=== PATIENT | female | born 1930 | race Caucasian/White ===

== ENCOUNTER 2016-12-07 10:09 | Inpatient (IN) | payer OTHER ==
[~2016-12-07] VITALS: Ht 175.3 cm; Wt 47.0 kg
[~2016-12-07 10:09] MED LIST: ALL300 PO; ASPI81TA21 PO; CHOL100027 PO; CRDCD120 PO; DIGO0.122 PO; DOCU-94 PO; FRS/40 PO; GLIP-197 PO; LSN25 PO; LVQ750 PO
[2016-12-07] MEDS ORDERED: DILT120C68 PO (10:18)
[2016-12-07] MEDS ORDERED: DIGO0.1219 PO (10:20)
[2016-12-07] MEDS ORDERED: ALLO300T2 PO (10:21)
[2016-12-07] MEDS ORDERED: POTA10CA28 PO (10:22)
--- NOTE | 2016-12-07 11:02 | EMERGENCY ROOM VISIT NOTE ---
History Report prepared by Nadiya: Sbe Ventura Under the Supervision of: Dr. Sarah Fonseca M.D. First contact with patient: 10:36 Chief Complaint: WEAKNESS Stated Complaint: GENERALIZED WEAKNESS Nursing Triage Summary: pt. was brought by bls, family reports weakness this am, pt. reports, " I didn' t fall", was caught by family member Pt. has reported right facial droop since she had face surgery, family reports it is her normal History of Present Illness The patient is an 86 year old female who presents to the Emergency Room with complaints of an acute fall that occurred earlier this morning. The patient normally uses a walker. She was standing up without her walker this morning when he legs gave out secondary to generalized weakness. The patient was caught by her nephew, who she lives with. The patient did not hit the ground or sustain any injuries. The patient notes increased generalized weakness lately, especially in the legs. She denies any pain. She denies vomiting, abdominal pain , or urinary symptoms. The patient has a history of broken left hip and shoulder secondary to falls. The patient has a history of skin cancer. She has a chronic right facial droop from surgery to remove the cancer, as per nursing staff. The patient has a wound care nurse visit her at home to treat her legs, which retain a lot of fluid. Source of History: patient Onset: earlier this morning Position: other (global) Quality: other (fall) Timing: other (acute) Associated Symptoms: + weakness, No abdominal pain, No urinary symptoms, No vomiting Review of Systems See HPI for pertinent positives & negatives. A total of 10 systems reviewed and were otherwise negative. Past Medical & Surgical Medical Problems: (1) Afib (2) CHF (congestive heart failure) (3) Diabetes mellitus, type 2 (4) History of CVA (cerebrovascular accident) (5) HTN (hypertension) (6) Sacral decubitus ulcer, stage IV (7) Sepsis secondary to UTI (8) Squamous cell skin cancer Family History Cancer Diabetes mellitus FHx: heart disease Gallbladder disease Hypertension Kidney disease Social History Smoking Status: Never Smoker Drug Use: none Marital Status: single Housing Status: lives with family Occupation Status: retired Current/Historical Medications Scheduled Allopurinol (Zyloprim), 300 MG PO DAILY Aspirin Enteric Coated (Ecotrin Or Generic), 81 MG PO DAILY Cholecalciferol (Vitamin D 1000 Unit), 2,000 INTER.UNIT PO DAILY Digoxin (Digox), 125 MCG PO DAILY Diltiazem Hcl Ext Rel (Tiazac), 120 MG PO DAILY Furosemide (Lasix), 40 MG PO DAILY Glipizide (Glipizide Er), 1 TAB PO DAILY Lisinopril (Lisinopril), 2.5 MG PO DAILY Potassium Chloride (Micro-K Ext Rel), 10 MEQ PO DAILY Allergies Coded Allergies: Codeine (Verified Adverse Reaction, Mild, VOMITING, 12/07/16) Physical Exam Vital Signs Date Time Temp Pulse Resp B/P Pulse Ox O2 Delivery O2 Flow Rate FiO2 12/07/16 13:20 56 16 122/84 97 Room Air 12/07/16 12:32 54 20 116/83 12/07/16 11:40 35.3 12/07/16 10:24 72 12/07/16 10:18 99 Room Air 12/07/16 10:18 36.9 64 21 132/67 98 Room Air Physical Exam Vital signs reviewed. General: Chronically ill-appearing, cachectic and frail. HEENT: No scleral icterus, PERRLA, neck supple. Atraumatic. Cardiovascular: Regular rate and rhythm, no extra sounds. Pulmonary: Clear to auscultation bilaterally, normal work of breathing. Abdomen: Soft, nontender, nondistended, positive bowel sounds. Musculoskeletal: Atraumatic. Chronic edema to the bilateral lower extremities from the knees down with weeping open wounds, no evidence of acute cellulitis. Neurologic: Patient awake alert and oriented x 3, full strength in all 4 extremities. Right-sided facial droop which is baseline. Skin: Warm, dry, no rash Open wounds to the sacral area, erythema across the buttocks. Chronic scaling of the skin to the face and extremities. Medical Decision & Procedures ER Provider Diagnostic Interpretation: X-ray results as stated below per my interpretation and radiologist interpretation. Other radiology results as stated below per my review and radiologist interpretation: CHEST ONE VIEW PORTABLE CLINICAL HISTORY: weakness dyspnea COMPARISON STUDY: 11/26/2015 FINDINGS: Mild pulmonary vascular congestion. Stable tortuosity thoracic aorta. Diaphragms smooth. Costophrenic angles are sharp. IMPRESSION: Mild pulmonary vascular congestion. No well-defined focal infiltrate. Electronically signed by: Jordan Grey M.D. 12/07/2016 12:23 PM Dictated Date/Time: 12/07/2016 12:[address] SCAN OF THE BRAIN WITHOUT IV CONTRAST CLINICAL HISTORY: Generalized weakness. COMPARISON STUDY: CT of the brain dated 02/26/2015. TECHNIQUE: Unenhanced axial CT scan of the brain is performed from the vertex to the skull base. CT DOSE: 614.27 mGy.cm FINDINGS: Brain parenchyma: There are age-related involutional changes noting moderate subcortical and periventricular microangiopathic change. Small chronic lacunar infarcts are present in the caudate heads. There is no hemorrhage, mass effect, or evidence of acute territorial ischemia by CT criteria. Hough-white matter is preserved. No extra-axial fluid collection is seen. Ventricles, sulci, cisterns: Prominent secondary to involutional change. Intracranial vasculature: There is atherosclerotic calcification of the cavernous carotid and vertebral arteries. Calvarium: Unremarkable. Sinuses and mastoids: The visualized paranasal sinuses are clear. The mastoid air cells are well pneumatized. Orbits: The bony orbits are grossly intact. There are bilateral ocular lens implants. IMPRESSION: Senescent changes as above with no hemorrhage, mass effect, or evidence of acute territorial ischemia by CT criteria. Electronically signed by: Bennett Cobb M.D. 12/07/2016 12:29 PM Dictated Date/Time: 12/07/2016 12:26 PM Laboratory Results Test 12/07/16 11:30 12/07/16 11:51 12/07/16 11:57 12/07/16 11:59 Urine Color YELLOW Urine Appearance CLOUDY (CLEAR) Urine pH 5.5 (4.5-7.5) Urine Specific [place] 1.015 (1.000-1.030) Urine Protein NEG (NEG) Urine Glucose (UA) NEG (NEG) Urine Ketones NEG (NEG) Urine Occult Blood NEG (NEG) Urine Nitrite POS (NEG) Urine Bilirubin NEG (NEG) Urine Urobilinogen NEG (NEG) Urine Leukocyte Esterase NEG (NEG) Urine WBC (Auto) 1-5 /hpf (0-5) Urine RBC (Auto) 0-4 /hpf (0-4) Urine Hyaline Casts (Auto) 1-5 /lpf (0-5) Urine Epithelial Cells (Auto) 5-10 /lpf (0-5) Urine Bacteria (Auto) 4+ (NEG) Total Bilirubin 0.7 mg/dl (0.2-1) Direct Bilirubin 0.3 mg/dl (0-0.2) Aspartate Amino Transf (AST/SGOT) 15 U/L (15-37) Alanine Aminotransferase (ALT/SGPT) 16 U/L (12-78) Alkaline Phosphatase 64 U/L (45-117) Total Creatine Kinase 38 U/L (26-192) Creatine Kinase MB 1.4 ng/ml (0.5-3.6) Creatine Kinase MB Ratio 3.7 (0-3.0) Total Protein 6.2 gm/dl (6.4-8.2) Albumin 2.6 gm/dl (3.4-5.0) Bedside Lactic Acid Venous 1.04 mmol/L (0.90-1.70) Bedside Troponin I 0.020 ng/ml (0-0.045) Date/Time Source Procedure Growth Status 12/07/16 11:30 Urine,Catheterized Urine Culture - Final GREATER THAN THREE TYPES OF ORGANISMS... Complete Laboratory results per my review. Medications Administered Medications (Trade) Dose Ordered Sig/Kaylee Route Start Time Stop Time Status Last Admin Dose Admin Sodium Chloride (Nss 1000ml) 1,000 ml @ 125 mls/hr Q8H STAT IV 12/07/16 11:06 12/07/16 15:16 DC 12/07/16 12:13 125 MLS/HR Potassium Chloride (Kcl 10 Meq / Wtr) 20 meq NOW STAT IV 12/07/16 13:07 12/07/16 15:16 DC 12/07/16 13:22 20 MEQ ECG Indication: weakness Rate (beats per minute): 69 Rhythm: other (likely junctional rhythm) Findings: nonspecific-ST abn, PVC, other (low voltage) ED Course 1050: Past medical records reviewed. The patient was evaluated in room A11b. A complete history and physical examination was performed. 1106: NSS 1000 ml @ 125 mls/hr. 1307: Potassium Chloride 20 meq IV. 1308: Updated the patient. 1323: Magnesium Sulfate 1 gm IV. 1345: Discussed the case with Dr. López, [facility]. The patient will be evaluated. Medical Decision Differential diagnosis: Etiologies such as metabolic, infection, hypo/hyperglycemia, electrolyte abnormalities, cardiac sources, intracerebral event, toxicologic, neurologic, as well as others were entertained. This patient was evaluated and appeared to be in no significant distress. IV access was obtained and laboratory work was drawn. Patient was placed on the quality assurance monitor final. She was hydrated with normal saline solution. Patient's laboratory work reveals anemia, hyponatremia and hypokalemia. EKG reveals a bradycardic rhythm with ectopy. Patient was given IV potassium. Urinalysis is negative. The evaluation of the sacral wounds reveals a foul odor and likely secondary infection. She may have an underlying osteomyelitis. The patient was discussed with the hospitalist service and she will be evaluated for further management. Consults Time Called: 1340 Consulting Physician: Dr. López, [facility]. Returned Call: [phone]: Discussed the case with Dr. López, [facility]. The patient will be evaluated. Impression Primary Impression: Hypokalemia Additional Impressions: Hypomagnesemia Dehydration Scribe Attestation The scribe's documentation has been prepared under my direction and personally reviewed by me in its entirety. I confirm that the note above accurately reflects all work, treatment, procedures, and medical decision making performed by me. Departure Information Dispostion Being Evaluated By Hospitalist Referrals Gene Guidry M.D. (PCP) Patient Instructions My [facility] Problem Qualifiers
[2016-12-07] MEDS ORDERED: SODIUM CHLORIDE 0.9% 1000ML 1,000 ML IV STA (11:06)
[2016-12-07 12:11] LABS: BASO % 0.4 %; BASO ABS # 0.03 K/uL (0-0.2); COMPLETE YES; EOS % 0.3 %; IG% 0.1 %; LYMPH % 22.9 %; LYMPH ABS # 1.57 K/uL (1.2-3.4); MEAN CELL VOLUME 96.3 fL (80-100); MEAN CORPUSCULAR HEMOGLOBIN 32.3 pg (25-34); MEAN CORPUSCULAR HGB CONC 33.5 g/dl (32-36); MEAN PLATELET VOLUME 11.6 fL (7.4-10.4); MONO % 8.5 %; NEUT % 67.8 %; PLATELET COUNT 189 K/uL (130-400); RED BLOOD COUNT 3.22 M/uL (4.2-5.4); WHITE BLOOD COUNT 6.86 K/uL (4.8-10.8)
--- NOTE | 2016-12-07 12:24 | DIAGNOSTIC IMAGING REPORT ---
CHEST ONE VIEW PORTABLE CLINICAL HISTORY: weakness dyspnea COMPARISON STUDY: 11/26/2015 FINDINGS: Mild pulmonary vascular congestion. Stable tortuosity thoracic aorta. Diaphragms smooth. Costophrenic angles are sharp. IMPRESSION: Mild pulmonary vascular congestion. No well-defined focal infiltrate. Electronically signed by: Jordan Grey M.D. 12/07/2016 12:23 PM Dictated Date/Time: 12/07/2016 12:22 PM
--- NOTE | 2016-12-07 12:30 | DIAGNOSTIC IMAGING REPORT ---
CT SCAN OF THE BRAIN WITHOUT IV CONTRAST CLINICAL HISTORY: Generalized weakness. COMPARISON STUDY: CT of the brain dated 02/26/2015. TECHNIQUE: Unenhanced axial CT scan of the brain is performed from the vertex to the skull base. CT DOSE: 614.27 mGy.cm FINDINGS: Brain parenchyma: There are age-related involutional changes noting moderate subcortical and periventricular microangiopathic change. Small chronic lacunar infarcts are present in the caudate heads. There is no hemorrhage, mass effect, or evidence of acute territorial ischemia by CT criteria. Hough-white matter is preserved. No extra-axial fluid collection is seen. Ventricles, sulci, cisterns: Prominent secondary to involutional change. Intracranial vasculature: There is atherosclerotic calcification of the cavernous carotid and vertebral arteries. Calvarium: Unremarkable. Sinuses and mastoids: The visualized paranasal sinuses are clear. The mastoid air cells are well pneumatized. Orbits: The bony orbits are grossly intact. There are bilateral ocular lens implants. IMPRESSION: Senescent changes as above with no hemorrhage, mass effect, or evidence of acute territorial ischemia by CT criteria. Electronically signed by: Bennett Cobb M.D. 12/07/2016 12:29 PM Dictated Date/Time: 12/07/2016 12:26 PM
[2016-12-07 12:35] LABS: BUN/CREATININE RATIO 30.3 (10-20); CALCIUM 8.4 mg/dl (8.5-10.1); CREATININE 0.67 mg/dl (0.60-1.20); MAGNESIUM 1.6 mg/dl (1.8-2.4); POTASSIUM 2.7 mmol/L (3.5-5.1)
[2016-12-07 12:40] LABS: URINE APPEARANCE CLOUDY (CLEAR); URINE BILIRUBIN NEG (NEG); URINE COLOR YELLOW; URINE NITRITE POS (NEG); URINE PH 5.5 (4.5-7.5); URINE SPECIFIC GRAVITY 1.015 (1.000-1.030); UROBILINOGEN NEG (NEG); ZZURINE CULT IF INDIC CATH YES
[2016-12-07 12:40] LABS: CKMB/CK RATIO 3.7 (0-3.0)
[2016-12-07 12:51] LABS: MANUAL MICROSCOPIC REQUIRED? NO; REVIEW REQ? NO
[2016-12-07] MEDS ORDERED: POTASSIUM CHLORIDE 10 MEQ / 100ML WTR IV STA (13:07)
[2016-12-07] MEDS ORDERED: MAGNESIUM SULFATE 1GM / D5W 1 GM BAG IV STA (13:23)
[2016-12-07] MEDS ORDERED: PIPERACILL/TAZOBAC IV 3.375 GM in DEXTROSE 5% 100ML 100 ML IV ONE ×2 (13:50→21:15)
[2016-12-07] MEDS ORDERED: GLUCAGON FOR INJ 1 MG VIAL SQ PRN (14:00)
[2016-12-07] MEDS ORDERED: DEXTROSE 50% 50 ML SYR IV PRN (14:00)
[2016-12-07] MEDS ORDERED: ONDANSETRON INJ 2 MG/ML 2 ML VIAL IV PRN (14:00)
[2016-12-07] MEDS ORDERED: GLUCOSE 40% GEL 15 GM TUBE PO PRN (14:00)
[2016-12-07] MEDS ORDERED: ZOLPIDEM TARTRATE 5 MG TAB PO PRN (14:00)
[2016-12-07] MEDS ORDERED: GLUCOSE 10 TABS/TUBE PO PRN (14:00)
[2016-12-07] MEDS ORDERED: PIPERACILL/TAZOBAC CONSULT ACTIVE PRN (14:15)
[2016-12-07] MEDS ORDERED: PIPERACILL/TAZOBAC IV 3.375 GM in DEXTROSE 5% 100ML IV ONE (14:30)
[2016-12-07 16:00] VITALS: BP 134/54; TEMP 36.5; Ht 175.3 cm; Wt 47.0 kg
[2016-12-07 16:17] VITALS: BP 134/54; PULSE 60; TEMP 36.5; O2SAT 96
[2016-12-07] MEDS: INSULIN ASPART 100 UNITS/ML 3 ML PEN SC SCH ×2 (16:45→21:23)
--- NOTE | 2016-12-07 18:21 | DIAGNOSTIC IMAGING REPORT ---
SACRUM COCCYX MIN 2 VIEWS CLINICAL HISTORY: Decubitus ulcer COMPARISON STUDY: No previous studies for comparison. FINDINGS: There is an age-indeterminate deformity of the lower sacrum/coccyx. While this may simply be secondary to prior trauma, osteomyelitis cannot be excluded. If osteomyelitis is a clinical concern, then a cross-sectional imaging study would be recommended in follow-up. There is a large amount stool within the rectal vault. There is an old superior endplate L4 compression fracture. IMPRESSION: Age-indeterminate deformity of the lower sacrum/coccyx. Electronically signed by: Nahid De La Fuente M.D. 12/07/2016 6:20 PM Dictated Date/Time: 12/07/2016 6:18 PM
[2016-12-07] MEDS: DAPTOmycin IV 275 MG in SODIUM CHLORIDE 0.9% 50ML 50 ML IV SCH (18:27)
[2016-12-07] MEDS: DIGOXIN 0.125 MG TAB PO SCH (19:13)
[2016-12-07] MEDS: POTASSIUM CHLORIDE 20 MEQ TABCR PO SCH ×2 (19:14→21:30)
[2016-12-07] MEDS: ACETAMINOPHEN 325 MG TAB PO PRN (19:17)
[2016-12-07] MEDS: ALBUMIN HUMAN 25% 12.5 GM/50 ML VIAL IV SCH ×3 (19:20→23:13)
[2016-12-07] MEDS: PIPERACILL/TAZOBAC IV 3.375 GM in DEXTROSE 5% 100ML 100 ML IV SCH ×2 (20:00→20:34)
[2016-12-07 20:30] VITALS: BP 126/82; PULSE 55; TEMP 36.6; O2SAT 94
[2016-12-07 21:15] VITALS: BP 136/82; PULSE 54; TEMP 36.6; O2SAT 94
[2016-12-07 23:00] VITALS: BP 125/55; PULSE 62; TEMP 36.6; O2SAT 93
[2016-12-07 23:45] VITALS: BP 114/54; PULSE 42; PULSE 46; TEMP 36.5; O2SAT 93
[2016-12-08] VITALS (10 sets, daily range): BP systolic 106–138; BP diastolic 60–85; PULSE 42–80; TEMP 36.4–37; O2SAT 90–96
[2016-12-08] MEDS: ALBUMIN HUMAN 25% 12.5 GM/50 ML VIAL IV SCH ×5 (00:09→12:31)
[2016-12-08] MEDS: PIPERACILL/TAZOBAC IV 3.375 GM in DEXTROSE 5% 100ML 100 ML IV SCH ×4 (01:59→19:57)
--- NOTE | 2016-12-08 03:14 | History and Physical ---
History & Physical Date & Time of Service: Dec 08, 2016 at 03:00 Chief Complaint: Sacral Decubitis Ulcer, Stage Iv, Sepsis Secondary Primary Care Physician: Gene Guidry M.D. History of Present Illness Source: patient, family The patient is an 86-year-old female brought to the emergency department by family after an acute fall occurred earlier in the morning. The patient usually uses a walker, but she was standing up without her walker this morning when her legs gave way secondary to generalized weakness. The patient was caught before she hit the floor by her nephew, whom she lives with. She's been noted by family to have progressively worsening generalized weakness, and particularly in her legs. Family reports that the they are visited by wound care nurse to treat the patient's legs, which have continued to retain a significant amount of fluid and are weeping. Past Medical/Surgical History Medical Problems: (1) Afib Status: Chronic (2) CHF (congestive heart failure) Status: Chronic (3) Diabetes mellitus, type 2 Status: Chronic (4) History of CVA (cerebrovascular accident) Status: Chronic (5) HTN (hypertension) Status: Chronic (6) Squamous cell skin cancer Status: Chronic Family History Cancer Diabetes mellitus FHx: heart disease Gallbladder disease Hypertension Kidney disease Social History Smoking Status: Never Smoker Smokeless Tobacco Use: No Alcohol Use: none Drug Use: none Marital Status: single Housing status: lives with family Occupational Status: retired Immunizations History of Influenza Vaccine: No History of Tetanus Vaccine?: Yes History of Pneumococcal: No History of Hepatitis B Vaccine: No Multi-Drug Resistant Organisms History of MDRO: Yes Type of MDRO: MRSA Allergies Coded Allergies: Codeine (Verified Adverse Reaction, Mild, VOMITING, 12/07/16) Home Medications Scheduled Allopurinol (Zyloprim), 300 MG PO DAILY Aspirin Enteric Coated (Ecotrin Or Generic), 81 MG PO DAILY Cholecalciferol (Vitamin D 1000 Unit), 2,000 INTER.UNIT PO DAILY Digoxin (Digox), 125 MCG PO DAILY Diltiazem Hcl Ext Rel (Tiazac), 120 MG PO DAILY Furosemide (Lasix), 40 MG PO DAILY Glipizide (Glipizide Er), 1 TAB PO DAILY Lisinopril (Lisinopril), 2.5 MG PO DAILY Potassium Chloride (Micro-K Ext Rel), 10 MEQ PO DAILY Review of Systems The patient denies chest pain, palpitations, shortness of breath, cough, vision change, hearing change, sore throat, fevers, chills, sweats, weight change, nausea, vomiting, abdominal pain, pelvic pain, blood in urine or stool, dysuria , urinary frequency or urgency, headache, memory loss, rash, abnormal bruising or bleeding, imbalance, focal weakness, night sweats, or allergy symptoms. The review of systems is otherwise negative other than for that already noted above, and at least 10 systems have been reviewed. Physical Exam Vital Signs Date Time Temp Pulse Resp B/P Pulse Ox O2 Delivery O2 Flow Rate FiO2 12/08/16 01:32 Room Air 12/08/16 00:48 36.5 61 20 119/61 95 12/08/16 00:09 36.5 42 18 106/60 93 12/07/16 23:45 36.5 46 18 114/54 93 12/07/16 23:00 36.6 62 18 125/55 93 Room Air 12/07/16 21:15 36.6 54 20 136/82 94 12/07/16 20:30 36.6 55 20 126/82 94 Room Air 12/07/16 20:00 Room Air 12/07/16 19:13 68 12/07/16 16:17 36.5 60 24 134/54 96 Room Air 12/07/16 16:00 36.5 24 134/54 Room Air 12/07/16 15:36 70 20 151/50 97 Room Air 12/07/16 14:21 69 20 140/57 97 Room Air 12/07/16 13:53 63 12/07/16 13:20 56 16 122/84 97 Room Air 12/07/16 12:32 54 20 116/83 12/07/16 11:40 35.3 12/07/16 10:24 72 12/07/16 10:18 99 Room Air 12/07/16 10:18 36.9 64 21 132/67 98 Room Air The patient is awake, appears thin and cachectic, alert and oriented 3, but hard of hearing, lying in bed and in no acute distress. HEENT--PERRL, EOMI, mucous membranes and oropharynx dry. Neck--supple, no JVD or bruits, thyroid normal, trachea midline, no adenopathy. Heart--normal S1 and S2, no extra beats, no murmurs, rubs or gallops. Lungs--clear bilaterally with good air movement, no respiratory distress, no accessory muscle use. Abdomen--normal bowel sounds and soft, nontender and nondistended, no hernias or masses, no organomegaly. Extremities--no cyanosis, clubbing. There is bilaterally 2+ pitting edema edema. There is moderate erythema and mild weeping right greater than left. There are good distal pulses b/l. Dermatologic--bilateral lower extremities with 3+ pitting edema, moderate erythema and weeping right greater than left. Stage IV sacral decubitus. Neurologic--cranial nerves II through XII grossly intact Psychiatric--normal affect. Diagnostics Laboratory Results Results Past 24 Hours Test 12/07/16 11:30 12/07/16 11:51 12/07/16 11:57 12/07/16 11:59 Range/Units Urine Color YELLOW Urine Appearance CLOUDY CLEAR Urine pH 5.5 4.5-7.5 Urine Specific Jackson 1.015 1.000-1.030 Urine Protein NEG NEG Urine Glucose (UA) NEG NEG Urine Ketones NEG NEG Urine Occult Blood NEG NEG Urine Nitrite POS NEG Urine Bilirubin NEG NEG Urine Urobilinogen NEG NEG Urine Leukocyte Esterase NEG NEG Urine WBC (Auto) 1-5 0-5 /hpf Urine RBC (Auto) 0-4 0-4 /hpf Urine Hyaline Casts (Auto) 1-5 0-5 /lpf Urine Epithelial Cells (Auto) 5-10 0-5 /lpf Urine Bacteria (Auto) 4+ NEG White Blood Count 6.86 4.8-10.8 K/uL Red Blood Count 3.22 4.2-5.4 M/uL Hemoglobin 10.4 12.0-16.0 g/dL Hematocrit 31.0 37-47 % Mean Corpuscular Volume 96.3 80-100 fL Mean Corpuscular Hemoglobin 32.3 25-34 pg Mean Corpuscular Hemoglobin Concent 33.5 32-36 g/dl Platelet Count 189 130-400 K/uL Mean Platelet Volume 11.6 7.4-10.4 fL Neutrophils (%) (Auto) 67.8 % Lymphocytes (%) (Auto) 22.9 % Monocytes (%) (Auto) 8.5 % Eosinophils (%) (Auto) 0.3 % Basophils (%) (Auto) 0.4 % Neutrophils # (Auto) 4.65 1.4-6.5 K/uL Lymphocytes # (Auto) 1.57 1.2-3.4 K/uL Monocytes # (Auto) 0.58 0.11-0.59 K/uL Eosinophils # (Auto) 0.02 0-0.5 K/uL Basophils # (Auto) 0.03 0-0.2 K/uL RDW Standard Deviation 52.2 36.4-46.3 fL RDW Coefficient of Variation 14.8 11.5-14.5 % Immature Granulocyte % (Auto) 0.1 % Immature Granulocyte # (Auto) 0.01 0.00-0.02 K/uL Sodium Level 146 136-145 mmol/L Potassium Level 2.7 3.5-5.1 mmol/L Chloride Level 110 98-107 mmol/L Carbon Dioxide Level 25 21-32 mmol/L Anion Gap 11.0 3-11 mmol/L Blood Urea Nitrogen 20 7-18 mg/dl Creatinine 0.67 0.60-1.20 mg/dl Est Creatinine Clear Calc Drug Dose 42.5 ml/min Estimated GFR () 91.6 Estimated GFR (Non- 79.0 BUN/Creatinine Ratio 30.3 10-20 Random Glucose 89 70-99 mg/dl Calcium Level 8.4 8.5-10.1 mg/dl Magnesium Level 1.6 1.8-2.4 mg/dl Total Bilirubin 0.7 0.2-1 mg/dl Direct Bilirubin 0.3 0-0.2 mg/dl Aspartate Amino Transf (AST/SGOT) 15 15-37 U/L Alanine Aminotransferase (ALT/SGPT) 16 12-78 U/L Alkaline Phosphatase 64 45-117 U/L Total Creatine Kinase 38 26-192 U/L Creatine Kinase MB 1.4 0.5-3.6 ng/ml Creatine Kinase MB Ratio 3.7 0-3.0 Total Protein 6.2 6.4-8.2 gm/dl Albumin 2.6 3.4-5.0 gm/dl Bedside Lactic Acid Venous 1.04 0.90-1.70 mmol/L Bedside Troponin I 0.020 0-0.045 ng/ml Test 12/07/16 17:15 12/07/16 20:10 Range/Units Bedside Glucose 119 163 70-90 mg/dl Microbiology Results 12/07/16 Urine Culture, Received Pending Diagnostic Radiology Patient Name: GERSON ORTEGA Unit Number: [id number] Dictated: 12/07/161225 Transcribed: 12/07/161225 EV Printed Date/Time: [~ rep prt dt]/[~ rep prt tm] [~ rep ct labl] - [~ rep ct ivnm] [facility] [place] [address] Dictated: 12/07/161225 Transcribed: 12/07/161225 EV Printed Date/Time: [~ rep prt dt]/[~ rep prt tm] [~ rep ct labl] - [~ rep ct ivnm] [~ rep ct add3]] CT SCAN OF THE BRAIN WITHOUT IV CONTRAST CLINICAL HISTORY: Generalized weakness. COMPARISON STUDY: CT of the brain dated 02/26/2015. TECHNIQUE: Unenhanced axial CT scan of the brain is performed from the vertex to the skull base. CT DOSE: 614.27 mGy.cm FINDINGS: Brain parenchyma: There are age-related involutional changes noting moderate subcortical and periventricular microangiopathic change. Small chronic lacunar infarcts are present in the caudate heads. There is no hemorrhage, mass effect, or evidence of acute territorial ischemia by CT criteria. Hough-white matter is preserved. No extra-axial fluid collection is seen. Ventricles, sulci, cisterns: Prominent secondary to involutional change. Intracranial vasculature: There is atherosclerotic calcification of the cavernous carotid and vertebral arteries. Calvarium: Unremarkable. Sinuses and mastoids: The visualized paranasal sinuses are clear. The mastoid air cells are well pneumatized. Orbits: The bony orbits are grossly intact. There are bilateral ocular lens implants. IMPRESSION: Senescent changes as above with no hemorrhage, mass effect, or evidence of acute territorial ischemia by CT criteria. Electronically signed by: Bennett Cobb M.D. 12/07/2016 12:29 PM Dictated Date/Time: 12/07/2016 12:26 PM The status of this report is Signed. Draft = Not yet reviewed or approved by Radiologist. Signed = Reviewed and approved by Radiologist. <AttendingPhy></AttendingPhy> <FamilyPhy>Gene Guidry M.D.</FamilyPhy> <PrimaryPhy >Gene Guidry M.D.</PrimaryPhy> <UnitNumber>[id number]</UnitNumber> <VisitNumber> [id number]</VisitNumber> <PatientName>GERSON ORTEGA</PatientName> < DateOfBirth>1930</DateOfBirth> <Location>[facility]</Location> <ServiceDate></ServiceDate> <MNE>ESINDI</MNE> <OrderingPhy>Sarah Fonseca M.D.</ OrderingPhy> <OrderingPhyMNE>f rep ord dr pozo</OrderingPhyMNE> <DictatingPhyMNE> f rep dict dr pozo</DictatingPhyMNE> <CCListMNE>f rep ct mne</CCListMNE> < AdmittingPhyMNE>f pt admit dr pozo</AdmittingPhyMNE> <AttendingPhyMNE>f pt attend dr pozo</AttendingPhyMNE> <ConsultingPhyMNE>f pt consult dr pozo</ConsultingPhyMNE> <FamilyPhyMNE>f pt fam dr pozo</FamilyPhyMNE> <OtherPhyMNE>f pt other dr pozo</OtherPhyMNE> < PrimaryPhyMNE>f pt prim care dr pozo</PrimaryPhyMNE> <ReferringPhyMNE>f pt referring dr pozo</ReferringPhyMNE> Patient Name: GERSON ORTEGA Unit Number: [id number] Dictated: 12/07/161221 Transcribed: 12/07/161221 MS Printed Date/Time: [~ rep prt dt]/[~ rep prt tm] [~ rep ct labl] - [~ rep ct ivnm] [facility] [place] [address] Dictated: 12/07/161221 Transcribed: 12/07/16 1222 MS Printed Date/Time: [~ rep prt dt]/[~ rep prt tm] [~ rep ct labl] - [~ rep ct ivnm] [~ rep ct add3]] CHEST ONE VIEW PORTABLE CLINICAL HISTORY: weakness dyspnea COMPARISON STUDY: 11/26/2015 FINDINGS: Mild pulmonary vascular congestion. Stable tortuosity thoracic aorta. Diaphragms smooth. Costophrenic angles are sharp. IMPRESSION: Mild pulmonary vascular congestion. No well-defined focal infiltrate. Electronically signed by: Jordan Grey M.D. 12/07/2016 12:23 PM Dictated Date/Time: 12/07/2016 12:22 PM The status of this report is Signed. Draft = Not yet reviewed or approved by Radiologist. Signed = Reviewed and approved by Radiologist. <AttendingPhy></AttendingPhy> <FamilyPhy>Gene Guidry M.D.</FamilyPhy> <PrimaryPhy >Gene Guidry M.D.</PrimaryPhy> <UnitNumber>[id number]</UnitNumber> <VisitNumber> [id number]</VisitNumber> <PatientName>GERSON ORTEGA</PatientName> < DateOfBirth>1930</DateOfBirth> <Location>[facility]</Location> <ServiceDate></ServiceDate> <MNE>ESINDI</MNE> <OrderingPhy>Sarah Fonseca M.D.</ OrderingPhy> <OrderingPhyMNE>f rep ord dr pozo</OrderingPhyMNE> <DictatingPhyMNE> f rep dict dr pozo</DictatingPhyMNE> <CCListMNE>f rep ct mne</CCListMNE> < AdmittingPhyMNE>f pt admit dr pozo</AdmittingPhyMNE> <AttendingPhyMNE>f pt attend dr pozo</AttendingPhyMNE> <ConsultingPhyMNE>f pt consult dr pozo</ConsultingPhyMNE> <FamilyPhyMNE>f pt fam dr pozo</FamilyPhyMNE> <OtherPhyMNE>f pt other dr pozo</OtherPhyMNE> < PrimaryPhyMNE>f pt prim care dr pozo</PrimaryPhyMNE> <ReferringPhyMNE>f pt referring dr pozo</ReferringPhyMNE> Patient Name: GERSON ORTEGA Unit Number: [id number] Dictated: 12/07/161817 Transcribed: 12/07/161817 ARG Printed Date/Time: [~ rep prt dt]/[~ rep prt tm] [~ rep ct labl] - [~ rep ct ivnm] [facility] [place] [address] Dictated: 12/07/161817 Transcribed: 12/07/161817 ARG Printed Date/Time: [~ rep prt dt]/[~ rep prt tm] [~ rep ct labl] - [~ rep ct ivnm] [~ rep ct add3]] SACRUM COCCYX MIN 2 VIEWS CLINICAL HISTORY: Decubitus ulcer COMPARISON STUDY: No previous studies for comparison. FINDINGS: There is an age-indeterminate deformity of the lower sacrum/coccyx. While this may simply be secondary to prior trauma, osteomyelitis cannot be excluded. If osteomyelitis is a clinical concern, then a cross-sectional imaging study would be recommended in follow-up. There is a large amount stool within the rectal vault. There is an old superior endplate L4 compression fracture. IMPRESSION: Age-indeterminate deformity of the lower sacrum/coccyx. Electronically signed by: Nahid De La Fuente M.D. 12/07/2016 6:20 PM Dictated Date/Time: 12/07/2016 6:18 PM The status of this report is Signed. Draft = Not yet reviewed or approved by Radiologist. Signed = Reviewed and approved by Radiologist. <AttendingPhy>Christoph López M.D.</AttendingPhy> <FamilyPhy>Gene Guidry M.D. </FamilyPhy> <PrimaryPhy>Gene Guidry M.D.</PrimaryPhy> <UnitNumber>[id number]</ UnitNumber> <VisitNumber>[id number]</VisitNumber> <PatientName>GERSON ORTEGA </PatientName> <DateOfBirth>1930</DateOfBirth> <Location>[facility]</Location > <ServiceDate>12/07/16</ServiceDate> <MNE>ESINDI</MNE> <OrderingPhy> Christoph López M.D.</OrderingPhy> <OrderingPhyMNE>f rep ord dr sánchez</ OrderingPhyMNE> <DictatingPhyMNE>f rep dict dr pozo</DictatingPhyMNE> <CCListMNE> f rep ct melyssae</CCListMNE> <AdmittingPhyMNE>f pt admit dr pozo</AdmittingPhyMNE> < AttendingPhyMNE>f pt attend dr pozo</AttendingPhyMNE> <ConsultingPhyMNE>f pt consult dr pozo</ConsultingPhyMNE> <FamilyPhyMNE>f pt fam dr pozo</FamilyPhyMNE> <OtherPhyMNE>f pt other dr pozo</OtherPhyMNE> < PrimaryPhyMNE>f pt prim care dr pozo</PrimaryPhyMNE> <ReferringPhyMNE>f pt referring dr pozo</ReferringPhyMNE> EKG EKG shows atrial fibrillation at 69, nonspecific ST-T changes. Impression Assessment and Plan Stage IV sacral decubitus/bilateral lower extremity cellulitis--does not appear to be being addressed by home nursing who primarily seem to be involved with her lower extremities with Kendall wrapping. The patient be admitted to the medical floor. Consult wound care for both the sacral decubitus and bilateral external cellulitis. We'll place on daptomycin IV and Zosyn IV. We'll place on albumin 25 g IV every 6 hours for 4 doses. Patient will either need a three- phase limited bone scan or MRI to rule out the presence of osteomyelitis in the sacral wound. Diabetes mellitus--hold glipizide, place and Accu-Cheks before meals and at bedtime with NovoLog coverage. Gout--continue allopurinol 300 mg by mouth daily. A. fib/CHF history--continue digoxin 125 g by mouth daily, diltiazem extended release 100 mg by mouth daily, and place on albumin with Lasix as noted above. Will hold lisinopril 2.5 mg by mouth daily. Continue aspirin 81 mg by mouth daily. UTI--cover with antibiotic cement noted above. Follow urine culture and sensitivities. Hypokalemia --replace both IV and oral, follow serial BMP and magnesium levels. Level of Care Med/Surg Advanced Directives Existing Advance Directive: Yes (koffi daughter) Existing Living Will: No Existing Power of Fence Making Machine Operator: No Resuscitation Status FULL RESUSCITATION VTE Prophylaxis VTE Risk Assessment Done? Y/N: Yes Risk Level: Moderate Given or contraindicated: SCD's Social Service Consult Receiving Home Health
[2016-12-08] MEDS: ACETAMINOPHEN 325 MG TAB PO PRN ×2 (05:12→12:34)
[2016-12-08 05:55] LABS: BASO % 0.2 %; BASO ABS # 0.02 K/uL (0-0.2); COMPLETE YES; EOS % 1.1 %; HEMATOCRIT 27.5 % (37-47); IG% 0.2 %; LYMPH % 30.7 %; LYMPH ABS # 2.48 K/uL (1.2-3.4); MEAN CELL VOLUME 98.9 fL (80-100); MEAN CORPUSCULAR HEMOGLOBIN 32.4 pg (25-34); MEAN CORPUSCULAR HGB CONC 32.7 g/dl (32-36); MEAN PLATELET VOLUME 11.2 fL (7.4-10.4); MONO % 11.4 %; NEUT % 56.4 %; PLATELET COUNT 164 K/uL (130-400); RED BLOOD COUNT 2.78 M/uL (4.2-5.4); WHITE BLOOD COUNT 8.07 K/uL (4.8-10.8)
[2016-12-08 06:31] LABS: BUN/CREATININE RATIO 19.9 (10-20); CALCIUM 7.8 mg/dl (8.5-10.1); CREATININE 0.78 mg/dl (0.60-1.20); MAGNESIUM 1.4 mg/dl (1.8-2.4); POTASSIUM 3.3 mmol/L (3.5-5.1)
[2016-12-08] MEDS: INSULIN ASPART 100 UNITS/ML 3 ML PEN SC SCH ×4 (07:51→21:52)
[2016-12-08] MEDS: ALLOPURINOL 300 MG TAB PO SCH (07:53)
[2016-12-08] MEDS: POTASSIUM CHLORIDE 20 MEQ TABCR PO SCH ×4 (07:53→21:53)
[2016-12-08] MEDS: DILTIAZEM HCL 120 MG EXT REL CAP PO SCH (07:54)
[2016-12-08] MEDS: ASPIRIN 81 MG ECTAB PO SCH (07:55)
[2016-12-08] MEDS: CHOLECALCIFEROL 1000 INTER.UNIT TAB PO SCH (07:55)
--- NOTE | 2016-12-08 09:16 | Family Medicine Progress Note ---
Progress Note Date of Service Dec 08, 2016. Subjective Pt evaluation today including: conversation w/ patient, physical exam, chart review, lab review Voiding: najera catheter in place Patient complains of b/l knee and sacral pain. She states that she is having b/ l lower extremities weakness for weeks now. She has good appetite and tolerating food well. Denies SOB, chest pain, nausea, vomiting, abdominal pain, dizziness, or any other additional complaints. Constitutional: No fever Respiratory: No cough, No dyspnea on exertion, No shortness of breath, No wheezing Cardiovascular: No chest pain Abdomen: No nausea, No pain, No vomiting Musculoskeletal: + problem reported (complains of b/l lower extremities pain and sacrum pain), + swelling (b/l lower extremities ) Medications Current Inpatient Medications Medications (Trade) Dose Ordered Sig/Kaylee Route Start Time Stop Time Status Last Admin Dose Admin Acetaminophen (Tylenol Tab) 650 mg Q4H PRN PO 12/07/16 14:00 01/06/17 13:59 12/08/16 05:12 325 MG Zolpidem Tartrate (Ambien Tab) 5 mg HSZ PRN PO 12/07/16 14:00 01/06/17 13:59 Allopurinol (Zyloprim Tab) 300 mg DAILY PO 12/08/16 09:00 01/07/17 08:59 12/08/16 07:53 300 MG Aspirin (Ecotrin Tab) 81 mg DAILY PO 12/08/16 09:00 01/07/17 08:59 12/08/16 07:55 81 MG Cholecalciferol (Vitamin D Tab) 2,000 inter.unit DAILY PO 12/08/16 09:00 01/07/17 08:59 12/08/16 07:55 2,000 INTER.UNIT Digoxin (Lanoxin Tab) 0.125 mg DAILY@1600 PO 12/07/16 16:00 01/06/17 15:59 12/07/16 19:13 0.125 MG Diltiazem HCl (TIAzac CAP) 120 mg DAILY PO 12/08/16 09:00 01/07/17 08:59 12/08/16 07:54 120 MG Potassium Chloride 20 meq 20 meq QID PO 12/07/16 17:00 01/06/17 16:59 12/08/16 07:53 20 MEQ Daptomycin/Sodium Chloride (Cubicin IV/Nss 50ml) 55.5 ml @ 100 mls/hr Q24H IV 12/07/16 17:00 12/17/16 16:59 12/07/16 18:27 100 MLS/HR Albumin Human (Albumin 25%) 12.5 gm 0500,1100,1700,2300 IV 12/07/16 17:00 12/08/16 11:01 12/08/16 04:36 12.5 GM Ondansetron HCl (Zofran Inj) 4 mg Q6H PRN IV 12/07/16 14:00 01/06/17 13:59 Insulin Aspart (novoLOG ASPART) SLIDING SCALE If C... ACHS SC 12/07/16 16:45 01/06/17 16:44 12/07/16 21:23 1 UNITS Glucose (Glucose 40% Gel) UD PRN PO 12/07/16 14:00 01/06/17 13:59 Glucose (Glucose Chew Tab) 1 tabs UD PRN PO 12/07/16 14:00 01/06/17 13:59 Dextrose (Dextrose 50% 50ML Syringe) 50 ml UD PRN IV 12/07/16 14:00 01/06/17 13:59 Glucagon (Glucagon Inj) 1 mg UD PRN SQ 12/07/16 14:00 01/06/17 13:59 Piperacillin Sod/ Tazobactam Sod (Consult) 1 ea UD PRN N/A 12/07/16 14:15 01/06/17 14:14 Albumin Human 12.5 gm 12.5 gm 0000,0600,1200,1800 IV 12/07/16 18:00 12/08/16 12:01 12/08/16 05:36 12.5 GM Piperacillin Sod/ Tazobactam Sod/ Dextrose (Zosyn Iv/D5 100ml) 115 ml @ 230 mls/hr Q6@0200,0800,1400,2000 IV 12/08/16 02:00 12/17/16 23:59 12/08/16 07:55 230 MLS/HR Objective Vital Signs Date Time Temp Pulse Resp B/P Pulse Ox O2 Delivery O2 Flow Rate FiO2 12/08/16 16:22 Room Air 12/08/16 16:00 54 12/08/16 15:11 72 12/08/16 15:09 36.7 48 18 135/75 93 Room Air 12/08/16 13:25 36.9 57 18 124/61 94 Room Air 12/08/16 11:42 37.0 80 16 132/84 94 Room Air 12/08/16 08:00 Room Air 12/08/16 07:37 36.7 20 120/61 90 Room Air 12/08/16 06:41 36.5 67 129/60 12/08/16 05:36 36.4 67 20 138/66 94 12/08/16 04:22 36.5 67 18 136/85 96 Room Air 12/08/16 01:32 Room Air 12/08/16 00:48 36.5 61 20 119/61 95 12/08/16 00:09 36.5 42 18 106/60 93 12/07/16 23:45 36.5 46 18 114/54 93 12/07/16 23:00 36.6 62 18 125/55 93 Room Air 12/07/16 21:15 36.6 54 20 136/82 94 12/07/16 20:30 36.6 55 20 126/82 94 Room Air 12/07/16 20:00 Room Air 12/07/16 19:13 68 Physical Exam General Appearance: no apparent distress, + cachetic, + thin Neck: supple, trachea midline Respiratory/Chest: chest non-tender, lungs clear, no respiratory distress Cardiovascular: regular rate, rhythm, no murmur Abdomen: normal bowel sounds, non tender, soft Extremities: + inflammation, + pedal edema Neurologic/Psychiatric: alert, normal mood/affect Skin: normal color, no rash, + pertinent finding (b/l lower extremities mildly erythematous with edema, weeping was noted on both legs) Laboratory Results Results Past 24 Hours Test 12/07/16 20:10 12/08/16 05:21 12/08/16 07:48 12/08/16 11:12 Range/Units Bedside Glucose 163 104 166 70-90 mg/dl White Blood Count 8.07 4.8-10.8 K/uL Red Blood Count 2.78 4.2-5.4 M/uL Hemoglobin 9.0 12.0-16.0 g/dL Hematocrit 27.5 37-47 % Mean Corpuscular Volume 98.9 80-100 fL Mean Corpuscular Hemoglobin 32.4 25-34 pg Mean Corpuscular Hemoglobin Concent 32.7 32-36 g/dl Platelet Count 164 130-400 K/uL Mean Platelet Volume 11.2 7.4-10.4 fL Neutrophils (%) (Auto) 56.4 % Lymphocytes (%) (Auto) 30.7 % Monocytes (%) (Auto) 11.4 % Eosinophils (%) (Auto) 1.1 % Basophils (%) (Auto) 0.2 % Neutrophils # (Auto) 4.54 1.4-6.5 K/uL Lymphocytes # (Auto) 2.48 1.2-3.4 K/uL Monocytes # (Auto) 0.92 0.11-0.59 K/uL Eosinophils # (Auto) 0.09 0-0.5 K/uL Basophils # (Auto) 0.02 0-0.2 K/uL RDW Standard Deviation 53.6 36.4-46.3 fL RDW Coefficient of Variation 14.9 11.5-14.5 % Immature Granulocyte % (Auto) 0.2 % Immature Granulocyte # (Auto) 0.02 0.00-0.02 K/uL Sodium Level 146 136-145 mmol/L Potassium Level 3.3 3.5-5.1 mmol/L Chloride Level 111 98-107 mmol/L Carbon Dioxide Level 26 21-32 mmol/L Anion Gap 9.0 3-11 mmol/L Blood Urea Nitrogen 16 7-18 mg/dl Creatinine 0.78 0.60-1.20 mg/dl Est Creatinine Clear Calc Drug Dose 37.7 ml/min Estimated GFR () 79.2 Estimated GFR (Non- 68.4 BUN/Creatinine Ratio 19.9 10-20 Random Glucose 98 70-99 mg/dl Calcium Level 7.8 8.5-10.1 mg/dl Magnesium Level 1.4 1.8-2.4 mg/dl Test 12/08/16 16:18 Range/Units Bedside Glucose 168 70-90 mg/dl Assessment and Plan This is a 86 y/o F with hx of DMII, HTN, CHF, Afib, and hx of CVA presented to the hospital s/p fall secondary to generalized weakness and found to have infected stage IV sacral decubitus ulcer. 1. Fall - It was mechanical fall secondary to generalized weakness. Patient didn't LOC or hit the floor. Weakness can be drug induced (was on glipizide) or could be due to malnutrition. - CT of head: There are age-related involutional changes noting moderate subcortical and periventricular microangiopathic change. Small chronic lacunar infarcts are present in the caudate heads. There is no hemorrhage, mass effect, or evidence of acute territorial ischemia by CT criteria. Hough-white matter is preserved. No extra-axial fluid collection is seen. 2. Stage IV sacral decubitus ulcer - Patient might have underlying osteomyelitis. - Coccynx X-ray: There is an age-indeterminate deformity of the lower sacrum /coccyx. While this may simply be secondary to prior trauma, osteomyelitis cannot be excluded. If osteomyelitis is a clinical concern, then a cross- sectional imaging study would be recommended in follow-up. - MRI of the sacrum is ordered to rule out osteomyelitis. - Will continue IV daptomycin 275mg and Zosyn 115ml - Culture is pending 3. Lower extremities cellulites - Patient had b/l lower extremities cellulites in the sitting of chronic edema.. Patient might have chronic venous stasis ulcer which attributed to the cellulites. - Continue with IV daptomycin 275mg and Zosyn 115ml 4. UTI - UA is nitrate (+) - Patient is already on antibiotic that would cover UTI 5. DM type 2 - Glipizide on hold - On Novolog sliding scale - Glucose is stable (104 -->166) 6. HTN - Lisinopril on hold - BP is stable (129/60) - Continue to monitor 7. Hx of CHF/Afib - Continue digoxin 125 g daily, diltiazem ER 100mg daily - Continue ASA 81 mg - Daily I/O and weight check 8. Electrolytes abnormalities - Patient has low potassium (3.3) - Given 40 meq of potassium chloride - Check BMP in am 9. DVT prophylaxis - SCDs 10. Code status - Full code History Resident Physician Supervision Note: I was present with Dr. Zuluaga during the history and exam. I discussed the case with the resident and agree with the findings and plan as documented in the note. Any exceptions or clarifications are listed here. Pt seen and examined at bedside. Oriented to person, place and time. Presently, complains of aching pain of the left lower extremity from the dorsal foot to the mid-gan which is concurrent with previous fracture pain. Reports no PEREZ, chest pain, SOB, nausea, fatigue, vision/hearing changes, numbness/tingling, weakness. General Appearance: mild distress, thin Respiratory: chest non-tender, lungs clear, normal breath sounds, no respiratory distress Cardiovascular: normal peripheral pulses, regular rate, rhythm, no edema, no murmur Extremities: other (minimal distal TTP of the b/l LE without apparent edema, some superficial erytehma without crusting/oozing visible at this time, putid odor) Assessment/Plan 86 y/o female h/o b/l LE venous stasis presents with weakness Stage IV decubitus ulcer - concerning for ?osteomyelitis - MRI of the sacrum for wound depth. Continue abx at present. UTI - covered w/ abx as above, f/u Cx Lower extremity cellulitis v. venous stasis changes - currently needing antibiotics for ulcer coverage and UTI but will monitor closely for changes DMII - hold glipizide and DO NOT RESTART. ISS Gout - continue allopurinol A. fib/chronic diastolic and CHF - continue digoxin, diltiazem, ASA. restart lasix in AM. hold lisinopril for now Hypokalemia - trend BMP s/p repletion
--- NOTE | 2016-12-08 09:34 | Clinical Documentation Query ---
KARRI Khan : CLINICAL DOCUMENTATION QUERY Patient is an 86 year old female admitted for a stage IV sacral decubitus ulcer and bilateral lower extremity cellulitis. Documentation includes CHF, not otherwise specified. Noted treatment includes Digoxin, Diltiazem, and albumin with Lasix. Lisinopril also listed as a home medication. No echocardiogram is available to this reader for characterization of heart failure but cardiac glycoside and calcium channel mustapha suggestive of possible combined CHF. Please clarify as clinically appropriate. Thank you. In your clinical opinion is this patient being managed for: ( ) Chronic combined systolic and diastolic congestive heart failure ( ) Other explanation of clinical findings (Please Explain) ( ) Unable to determine (Please Define) ( ) Need to Discuss ( X ) Not Agree The medical record reflects the following clinical findings, treatment, and risk factors. Clinical Indicators: As above Treatment:Noted treatment includes Digoxin, Diltiazem, and albumin with Lasix. Lisinopril also listed as a home medication Risk Factors: Age, Afib, DM, hypertension Please clarify and document your clinical opinion in the progress notes and discharge summary. Terms such as "probable", "suspected", "likely", "questionable", "possible", or "still to be ruled out" are acceptable. IF IN AGREEMENT, YOU MUST DOCUMENT ABOVE DIAGNOSTIC STATEMENT IN DAILY PROGRESS NOTES AND DISCHARGE SUMMARY. This document is not part of the patient's record. Thank You, Derrick Allen RN [phone]
--- NOTE | 2016-12-08 09:35 | Clinical Documentation Query ---
ALEJANDRO Monterroso : CLINICAL DOCUMENTATION QUERY Patient is an 86 year old female admitted for a stage IV sacral decubitus ulcer and bilateral lower extremity cellulitis. Documentation includes CHF, not otherwise specified. Noted treatment includes Digoxin, Diltiazem, and albumin with Lasix. Lisinopril also listed as a home medication. No echocardiogram is available to this reader for characterization of heart failure but cardiac glycoside and calcium channel mustapha suggestive of possible combined CHF. Please clarify as clinically appropriate. Thank you. In your clinical opinion is this patient being managed for: (X) Chronic combined systolic and diastolic congestive heart failure ( ) Other explanation of clinical findings (Please Explain) ( ) Unable to determine (Please Define) ( ) Need to Discuss ( ) Not Agree The medical record reflects the following clinical findings, treatment, and risk factors. Clinical Indicators: As above Treatment:Noted treatment includes Digoxin, Diltiazem, and albumin with Lasix. Lisinopril also listed as a home medication Risk Factors: Age, Afib, DM, hypertension Please clarify and document your clinical opinion in the progress notes and discharge summary. Terms such as "probable", "suspected", "likely", "questionable", "possible", or "still to be ruled out" are acceptable. IF IN AGREEMENT, YOU MUST DOCUMENT ABOVE DIAGNOSTIC STATEMENT IN DAILY PROGRESS NOTES AND DISCHARGE SUMMARY. This document is not part of the patient's record. Thank You, Derrick Allen RN [phone]
--- NOTE | 2016-12-08 11:13 | Medical Consult ---
Consultation Date of Consultation: Dec 08, 2016. Attending Physician: Tj Cornejo MD Reason for Consultation: Sacral decubitus History of Present Illness 86-year-old female with history of diabetes mellitus, prior CVA, and chronic lower extremity edema with weeping, followed by wound care nurse at home, who was admitted after a fall at home. She apparently had been developing progressive weakness over the last 1-2 weeks. Upon admission, she was found to have large stage IV sacral decubitus, as well as erythema and weeping from both legs. X-ray of the sacral area, read by me, is concerning for possibility of developing sacral osteomyelitis. She has been started empirically on daptomycin and Zosyn, cultures are pending. No report of significant fever prior to admission. Past Medical/Surgical History Medical Problems: (1) Confusion Status: Acute (2) Dehydration Status: Acute (3) Hypokalemia Status: Acute (4) Hypomagnesemia Status: Acute Medical Problems: (1) Afib (2) CHF (congestive heart failure) (3) Diabetes mellitus, type 2 (4) History of CVA (cerebrovascular accident) (5) HTN (hypertension) (6) Sacral decubitus ulcer, stage IV (7) Sepsis secondary to UTI (8) Squamous cell skin cancer Family History Cancer Diabetes mellitus FHx: heart disease Gallbladder disease Hypertension Kidney disease Social History Smoking Status: Never Smoker Smokeless Tobacco Use: No Alcohol Use: none Drug Use: none Marital Status: single Housing Status: lives with family Occupation Status: retired Allergies Coded Allergies: Codeine (Verified Adverse Reaction, Mild, VOMITING, 12/07/16) Current Inpatient Medications Current Inpatient Medications Medications (Trade) Dose Ordered Sig/Kaylee Route Start Time Stop Time Status Last Admin Dose Admin Acetaminophen (Tylenol Tab) 650 mg Q4H PRN PO 12/07/16 14:00 01/06/17 13:59 12/08/16 05:12 325 MG Zolpidem Tartrate (Ambien Tab) 5 mg HSZ PRN PO 12/07/16 14:00 01/06/17 13:59 Allopurinol (Zyloprim Tab) 300 mg DAILY PO 12/08/16 09:00 01/07/17 08:59 12/08/16 07:53 300 MG Aspirin (Ecotrin Tab) 81 mg DAILY PO 12/08/16 09:00 01/07/17 08:59 12/08/16 07:55 81 MG Cholecalciferol (Vitamin D Tab) 2,000 inter.unit DAILY PO 12/08/16 09:00 01/07/17 08:59 12/08/16 07:55 2,000 INTER.UNIT Digoxin (Lanoxin Tab) 0.125 mg DAILY@1600 PO 12/07/16 16:00 01/06/17 15:59 12/07/16 19:13 0.125 MG Diltiazem HCl (TIAzac CAP) 120 mg DAILY PO 12/08/16 09:00 01/07/17 08:59 12/08/16 07:54 120 MG Potassium Chloride 20 meq 20 meq QID PO 12/07/16 17:00 01/06/17 16:59 12/08/16 07:53 20 MEQ Daptomycin/Sodium Chloride (Cubicin IV/Nss 50ml) 55.5 ml @ 100 mls/hr Q24H IV 12/07/16 17:00 12/17/16 16:59 12/07/16 18:27 100 MLS/HR Ondansetron HCl (Zofran Inj) 4 mg Q6H PRN IV 12/07/16 14:00 01/06/17 13:59 Insulin Aspart (novoLOG ASPART) SLIDING SCALE If C... ACHS SC 12/07/16 16:45 01/06/17 16:44 12/07/16 21:23 1 UNITS Glucose (Glucose 40% Gel) UD PRN PO 12/07/16 14:00 01/06/17 13:59 Glucose (Glucose Chew Tab) 1 tabs UD PRN PO 12/07/16 14:00 01/06/17 13:59 Dextrose (Dextrose 50% 50ML Syringe) 50 ml UD PRN IV 12/07/16 14:00 01/06/17 13:59 Glucagon (Glucagon Inj) 1 mg UD PRN SQ 12/07/16 14:00 01/06/17 13:59 Piperacillin Sod/ Tazobactam Sod (Consult) 1 ea UD PRN N/A 12/07/16 14:15 01/06/17 14:14 Albumin Human 12.5 gm 12.5 gm 0000,0600,1200,1800 IV 12/07/16 18:00 12/08/16 12:01 12/08/16 05:36 12.5 GM Piperacillin Sod/ Tazobactam Sod/ Dextrose (Zosyn Iv/D5 100ml) 115 ml @ 230 mls/hr Q6@0200,0800,1400,2000 IV 12/08/16 02:00 12/17/16 23:59 12/08/16 07:55 230 MLS/HR Review of Systems Constitutional: + fatigue, + weakness, No fever Eyes: No problem reported ENT: No problem reported Respiratory: No problem reported Cardiovascular: No problem reported Abdomen: No problem reported Musculoskeletal: + swelling Genitourinary - Female: No problem reported Neurologic: + weakness Psychiatric: No problem reported Hematologic / Lymphatic: No problem reported Integumentary: + new/changing skin lesions Allergic / Immunologic: No problem reported Physical Exam Date Time Temp Pulse Resp B/P Pulse Ox O2 Delivery O2 Flow Rate FiO2 12/08/16 08:00 Room Air 12/08/16 07:37 36.7 20 120/61 90 Room Air 12/08/16 06:41 36.5 67 129/60 12/08/16 05:36 36.4 67 20 138/66 94 12/08/16 04:22 36.5 67 18 136/85 96 Room Air 12/08/16 01:32 Room Air 12/08/16 00:48 36.5 61 20 119/61 95 12/08/16 00:09 36.5 42 18 106/60 93 12/07/16 23:45 36.5 46 18 114/54 93 12/07/16 23:00 36.6 62 18 125/55 93 Room Air 12/07/16 21:15 36.6 54 20 136/82 94 12/07/16 20:30 36.6 55 20 126/82 94 Room Air 12/07/16 20:00 Room Air 12/07/16 19:13 68 12/07/16 16:17 36.5 60 24 134/54 96 Room Air 12/07/16 16:00 36.5 24 134/54 Room Air 12/07/16 15:36 70 20 151/50 97 Room Air 12/07/16 14:21 69 20 140/57 97 Room Air 12/07/16 13:53 63 12/07/16 13:20 56 16 122/84 97 Room Air 12/07/16 12:32 54 20 116/83 12/07/16 11:40 35.3 General Appearance: WD/WN, no apparent distress Head: normocephalic, atraumatic Eyes: normal inspection, EOMI, sclerae normal ENT: normal ENT inspection, pharynx normal Neck: supple, no adenopathy, thyroid normal, trachea midline Respiratory/Chest: chest non-tender, lungs clear, normal breath sounds, no respiratory distress Cardiovascular: regular rate, rhythm, no gallop, no murmur Abdomen/GI: normal bowel sounds, non tender, soft, no organomegaly ( Now) Back: normal inspection, no CVA tenderness Extremities/Musculoskelatal: no calf tenderness, + inflammation, + swelling Neurologic/Psych: alert, oriented x 3 Skin: normal color, no rash, + pertinent finding ( bilateral lower extremity erythema with edema and weeping, stage IV sacral decubitus with surrounding erythema) Lymphatic: no adenopathy Laboratory Results Date/Time Source Procedure Growth Status 12/07/16 11:30 Urine,Catheterized Urine Culture - Final GREATER THAN THREE TYPES OF ORGANISMS... Complete Last 24 Hours Test 12/07/16 11:30 12/07/16 11:51 12/07/16 11:57 12/07/16 11:59 Urine Color YELLOW Urine Appearance CLOUDY Urine pH 5.5 Urine Specific [place] 1.015 Urine Protein NEG Urine Glucose (UA) NEG Urine Ketones NEG Urine Occult Blood NEG Urine Nitrite POS Urine Bilirubin NEG Urine Urobilinogen NEG Urine Leukocyte Esterase NEG Urine WBC (Auto) 1-5 /hpf Urine RBC (Auto) 0-4 /hpf Urine Hyaline Casts (Auto) 1-5 /lpf Urine Epithelial Cells (Auto) 5-10 /lpf Urine Bacteria (Auto) 4+ White Blood Count 6.86 K/uL Red Blood Count 3.22 M/uL Hemoglobin 10.4 g/dL Hematocrit 31.0 % Mean Corpuscular Volume 96.3 fL Mean Corpuscular Hemoglobin 32.3 pg Mean Corpuscular Hemoglobin Concent 33.5 g/dl Platelet Count 189 K/uL Mean Platelet Volume 11.6 fL Neutrophils (%) (Auto) 67.8 % Lymphocytes (%) (Auto) 22.9 % Monocytes (%) (Auto) 8.5 % Eosinophils (%) (Auto) 0.3 % Basophils (%) (Auto) 0.4 % Neutrophils # (Auto) 4.65 K/uL Lymphocytes # (Auto) 1.57 K/uL Monocytes # (Auto) 0.58 K/uL Eosinophils # (Auto) 0.02 K/uL Basophils # (Auto) 0.03 K/uL RDW Standard Deviation 52.2 fL RDW Coefficient of Variation 14.8 % Immature Granulocyte % (Auto) 0.1 % Immature Granulocyte # (Auto) 0.01 K/uL Sodium Level 146 mmol/L Potassium Level 2.7 mmol/L Chloride Level 110 mmol/L Carbon Dioxide Level 25 mmol/L Anion Gap 11.0 mmol/L Blood Urea Nitrogen 20 mg/dl Creatinine 0.67 mg/dl Est Creatinine Clear Calc Drug Dose 42.5 ml/min Estimated GFR () 91.6 Estimated GFR (Non- 79.0 BUN/Creatinine Ratio 30.3 Random Glucose 89 mg/dl Calcium Level 8.4 mg/dl Magnesium Level 1.6 mg/dl Total Bilirubin 0.7 mg/dl Direct Bilirubin 0.3 mg/dl Aspartate Amino Transf (AST/SGOT) 15 U/L Alanine Aminotransferase (ALT/SGPT) 16 U/L Alkaline Phosphatase 64 U/L Total Creatine Kinase 38 U/L Creatine Kinase MB 1.4 ng/ml Creatine Kinase MB Ratio 3.7 Total Protein 6.2 gm/dl Albumin 2.6 gm/dl Bedside Lactic Acid Venous 1.04 mmol/L Bedside Troponin I 0.020 ng/ml Test 12/07/16 17:15 12/07/16 20:10 12/08/16 05:21 12/08/16 07:48 Bedside Glucose 119 mg/dl 163 mg/dl 104 mg/dl White Blood Count 8.07 K/uL Red Blood Count 2.78 M/uL Hemoglobin 9.0 g/dL Hematocrit 27.5 % Mean Corpuscular Volume 98.9 fL Mean Corpuscular Hemoglobin 32.4 pg Mean Corpuscular Hemoglobin Concent 32.7 g/dl Platelet Count 164 K/uL Mean Platelet Volume 11.2 fL Neutrophils (%) (Auto) 56.4 % Lymphocytes (%) (Auto) 30.7 % Monocytes (%) (Auto) 11.4 % Eosinophils (%) (Auto) 1.1 % Basophils (%) (Auto) 0.2 % Neutrophils # (Auto) 4.54 K/uL Lymphocytes # (Auto) 2.48 K/uL Monocytes # (Auto) 0.92 K/uL Eosinophils # (Auto) 0.09 K/uL Basophils # (Auto) 0.02 K/uL RDW Standard Deviation 53.6 fL RDW Coefficient of Variation 14.9 % Immature Granulocyte % (Auto) 0.2 % Immature Granulocyte # (Auto) 0.02 K/uL Sodium Level 146 mmol/L Potassium Level 3.3 mmol/L Chloride Level 111 mmol/L Carbon Dioxide Level 26 mmol/L Anion Gap 9.0 mmol/L Blood Urea Nitrogen 16 mg/dl Creatinine 0.78 mg/dl Est Creatinine Clear Calc Drug Dose 37.7 ml/min Estimated GFR () 79.2 Estimated GFR (Non- 68.4 BUN/Creatinine Ratio 19.9 Random Glucose 98 mg/dl Calcium Level 7.8 mg/dl Magnesium Level 1.4 mg/dl SACRUM COCCYX MIN 2 VIEWS CLINICAL HISTORY: Decubitus ulcer COMPARISON STUDY: No previous studies for comparison. FINDINGS: There is an age-indeterminate deformity of the lower sacrum/coccyx. While this may simply be secondary to prior trauma, osteomyelitis cannot be excluded. If osteomyelitis is a clinical concern, then a cross-sectional imaging study would be recommended in follow-up. There is a large amount stool within the rectal vault. There is an old superior endplate L4 compression fracture. IMPRESSION: Age-indeterminate deformity of the lower sacrum/coccyx. Electronically signed by: Nahid De La Fuente M.D. 12/07/2016 6:20 PM Dictated Date/Time: 12/07/2016 6:18 PM The status of this report is Signed. Draft = Not yet reviewed Assessment & Plan infected stage IV sacral decubitus ulcer with probable underlying sacral osteomyelitis, as well as lower extremity cellulitis in the setting chronic severe edema. Patient to be continued on current broad-spectrum therapy pending final culture results. Await wound care consultation as likely will need some debridement and further more intense wound care. We will discuss with hospitalist service. Will follow.
[2016-12-08] MEDS ORDERED: POTASSIUM CHLORIDE 10 MEQ TABCR PO ONE (14:15)
[2016-12-08] MEDS: DIGOXIN 0.125 MG TAB PO SCH (16:00)
[2016-12-08] MEDS: BOOST GLUCOSE CONTROL PO SCH (17:11)
[2016-12-08] MEDS: DAPTOmycin IV 275 MG in SODIUM CHLORIDE 0.9% 50ML 50 ML IV SCH (17:11)
[2016-12-09 00:09] VITALS: BP 156/62; PULSE 54; TEMP 37.1; O2SAT 93
[2016-12-09] MEDS: PIPERACILL/TAZOBAC IV 3.375 GM in DEXTROSE 5% 100ML 100 ML IV SCH ×4 (02:15→19:49)
[2016-12-09 07:56] VITALS: BP 150/57; PULSE 70; TEMP 37; O2SAT 90
[2016-12-09] MEDS: BOOST GLUCOSE CONTROL PO SCH ×2 (08:13→18:05)
[2016-12-09 08:16] LABS: BASO % 0.1 %; BASO ABS # 0.01 K/uL (0-0.2); COMPLETE YES; EOS % 0.6 %; HEMATOCRIT 27.5 % (37-47); IG% 0.2 %; LYMPH % 24.7 %; LYMPH ABS # 2.82 K/uL (1.2-3.4); MEAN CELL VOLUME 96.5 fL (80-100); MEAN CORPUSCULAR HEMOGLOBIN 32.6 pg (25-34); MEAN CORPUSCULAR HGB CONC 33.8 g/dl (32-36); MEAN PLATELET VOLUME 11.3 fL (7.4-10.4); MONO % 10.3 %; NEUT % 64.1 %; PLATELET COUNT 145 K/uL (130-400); RED BLOOD COUNT 2.85 M/uL (4.2-5.4); WHITE BLOOD COUNT 11.41 K/uL (4.8-10.8)
[2016-12-09] MEDS: ASPIRIN 81 MG ECTAB PO SCH (08:29)
[2016-12-09] MEDS: POTASSIUM CHLORIDE 20 MEQ TABCR PO SCH (08:33)
[2016-12-09] MEDS: DILTIAZEM HCL 120 MG EXT REL CAP PO SCH (08:34)
[2016-12-09] MEDS: CHOLECALCIFEROL 1000 INTER.UNIT TAB PO SCH (08:36)
[2016-12-09] MEDS: ALLOPURINOL 300 MG TAB PO SCH (08:37)
[2016-12-09] MEDS: INSULIN ASPART 100 UNITS/ML 3 ML PEN SC SCH ×4 (09:00→20:49)
[2016-12-09 09:01] LABS: BUN/CREATININE RATIO 20.3 (10-20); CALCIUM 8.5 mg/dl (8.5-10.1); CREATININE 0.67 mg/dl (0.60-1.20); MAGNESIUM 1.5 mg/dl (1.8-2.4); POTASSIUM 5.1 mmol/L (3.5-5.1)
[2016-12-09 09:08] LABS: PHOSPHORUS 1.5 mg/dl (2.5-4.9)
[2016-12-09] MEDS: FUROSEMIDE 20 MG TAB PO SCH (09:19)
[2016-12-09 10:17] VITALS: O2SAT 90
[2016-12-09 11:53] VITALS: BP 133/57; PULSE 57; TEMP 36.7; O2SAT 91
[2016-12-09 15:38] VITALS: BP 130/51; PULSE 68; TEMP 37.1; O2SAT 93
[2016-12-09] MEDS: DIGOXIN 0.125 MG TAB PO SCH (16:23)
[2016-12-09] MEDS: MAGNESIUM SULFATE 1GM / D5W 1 GM in PREMIXED IN D5W 100 ML IV SCH ×2 (16:25→18:05)
[2016-12-09] MEDS ORDERED: SODIUM PHOSPHATE INJ 15 MMOL in SODIUM CHLORIDE 0.9% 250ML 250 ML IV ONE (16:30)
--- NOTE | 2016-12-09 17:36 | Family Medicine Progress Note ---
Progress Note Date of Service Dec 09, 2016. Subjective Pt evaluation today including: conversation w/ patient, physical exam, chart review, lab review Voiding: najera catheter in place No acute event overnight.She denies any pain on her knee today. She states that she is doing better than yesterday. Tolerating food well. Denies SOB, chest pain , nausea, vomiting, abdominal pain, dysuria, or any other additional symptoms. Constitutional: No fever Respiratory: No cough, No shortness of breath, No wheezing Cardiovascular: No chest pain Abdomen: No constipation, No diarrhea, No nausea, No pain, No vomiting Musculoskeletal: + problem reported (b/l lower extremities swelling, which has improved since yesterday denies any pain today) Medications Current Inpatient Medications Medications (Trade) Dose Ordered Sig/Kaylee Route Start Time Stop Time Status Last Admin Dose Admin Acetaminophen (Tylenol Tab) 650 mg Q4H PRN PO 12/07/16 14:00 01/06/17 13:59 12/08/16 12:34 650 MG Zolpidem Tartrate (Ambien Tab) 5 mg HSZ PRN PO 12/07/16 14:00 01/06/17 13:59 Allopurinol (Zyloprim Tab) 300 mg DAILY PO 12/08/16 09:00 01/07/17 08:59 12/09/16 08:37 300 MG Aspirin (Ecotrin Tab) 81 mg DAILY PO 12/08/16 09:00 01/07/17 08:59 12/09/16 08:29 81 MG Cholecalciferol (Vitamin D Tab) 2,000 inter.unit DAILY PO 12/08/16 09:00 01/07/17 08:59 12/09/16 08:36 2,000 INTER.UNIT Digoxin (Lanoxin Tab) 0.125 mg DAILY@1600 PO 12/07/16 16:00 01/06/17 15:59 12/09/16 16:23 0.125 MG Diltiazem HCl 120 mg 120 mg DAILY PO 12/08/16 09:00 01/07/17 08:59 12/09/16 08:34 120 MG Daptomycin/Sodium Chloride (Cubicin IV/Nss 50ml) 55.5 ml @ 100 mls/hr Q24H IV 12/07/16 17:00 12/17/16 16:59 12/08/16 17:11 100 MLS/HR Ondansetron HCl (Zofran Inj) 4 mg Q6H PRN IV 12/07/16 14:00 01/06/17 13:59 Insulin Aspart (novoLOG ASPART) SLIDING SCALE If C... ACHS SC 12/07/16 16:45 01/06/17 16:44 12/08/16 21:52 1 UNITS Glucose (Glucose 40% Gel) UD PRN PO 12/07/16 14:00 01/06/17 13:59 Glucose (Glucose Chew Tab) 1 tabs UD PRN PO 12/07/16 14:00 01/06/17 13:59 Dextrose (Dextrose 50% 50ML Syringe) 50 ml UD PRN IV 12/07/16 14:00 01/06/17 13:59 Glucagon (Glucagon Inj) 1 mg UD PRN SQ 12/07/16 14:00 01/06/17 13:59 Piperacillin Sod/ Tazobactam Sod 1 ea 1 ea UD PRN N/A 12/07/16 14:15 01/06/17 14:14 Piperacillin Sod/ Tazobactam Sod/ Dextrose (Zosyn Iv/D5 100ml) 115 ml @ 230 mls/hr Q6@0200,0800,1400,2000 IV 12/08/16 02:00 12/17/16 23:59 12/09/16 13:28 230 MLS/HR Enteral Nutritional Formula (Boost Glucose Control) 1 can BIDM PO 12/08/16 17:00 01/07/17 16:59 12/09/16 08:13 1 CAN Furosemide 20 mg 20 mg QAM PO 12/09/16 09:00 01/08/17 08:59 12/09/16 09:19 20 MG Magnesium Sulfate 1 gm/Prmx 100 ml @ 100 mls/hr Q1H IV 12/09/16 16:30 12/09/16 18:29 12/09/16 16:25 100 MLS/HR Sodium Phosphate/ Sodium Chloride (Sodium Phosphate Inj/Nss 250ml) 255 ml @ 88 mls/hr TODAY@1630 ONCE IV 12/09/16 16:30 12/09/16 19:23 12/09/16 16:25 88 MLS/HR Objective Vital Signs Date Time Temp Pulse Resp B/P Pulse Ox O2 Delivery O2 Flow Rate FiO2 12/09/16 16:23 64 12/09/16 15:38 37.1 68 20 130/51 93 Room Air 12/09/16 11:53 36.7 57 17 133/57 91 Room Air 12/09/16 10:17 90 Room Air 12/09/16 09:35 Room Air 12/09/16 07:56 37.0 70 15 150/57 90 Room Air 12/09/16 00:09 37.1 54 18 156/62 93 Room Air Physical Exam General Appearance: no apparent distress, + cachetic, + thin Neck: supple, trachea midline Respiratory/Chest: chest non-tender, lungs clear, normal breath sounds, no respiratory distress Cardiovascular: regular rate, rhythm Abdomen: normal bowel sounds, non tender, soft Extremities: + inflammation, + pedal edema Neurologic/Psychiatric: alert, normal mood/affect, oriented x 3 Skin: normal color, warm/dry, + pertinent finding (b/l lower extremities mildly erythematous with edema, which has improved from yesterday) Laboratory Results Results Past 24 Hours Test 12/08/16 20:16 12/09/16 07:38 12/09/16 07:42 12/09/16 11:17 Range/Units Bedside Glucose 175 87 140 70-90 mg/dl White Blood Count 11.41 4.8-10.8 K/uL Red Blood Count 2.85 4.2-5.4 M/uL Hemoglobin 9.3 12.0-16.0 g/dL Hematocrit 27.5 37-47 % Mean Corpuscular Volume 96.5 80-100 fL Mean Corpuscular Hemoglobin 32.6 25-34 pg Mean Corpuscular Hemoglobin Concent 33.8 32-36 g/dl Platelet Count 145 130-400 K/uL Mean Platelet Volume 11.3 7.4-10.4 fL Neutrophils (%) (Auto) 64.1 % Lymphocytes (%) (Auto) 24.7 % Monocytes (%) (Auto) 10.3 % Eosinophils (%) (Auto) 0.6 % Basophils (%) (Auto) 0.1 % Neutrophils # (Auto) 7.31 1.4-6.5 K/uL Lymphocytes # (Auto) 2.82 1.2-3.4 K/uL Monocytes # (Auto) 1.18 0.11-0.59 K/uL Eosinophils # (Auto) 0.07 0-0.5 K/uL Basophils # (Auto) 0.01 0-0.2 K/uL RDW Standard Deviation 52.9 36.4-46.3 fL RDW Coefficient of Variation 15.1 11.5-14.5 % Immature Granulocyte % (Auto) 0.2 % Immature Granulocyte # (Auto) 0.02 0.00-0.02 K/uL Sodium Level 147 136-145 mmol/L Potassium Level 5.1 3.5-5.1 mmol/L Chloride Level 115 98-107 mmol/L Carbon Dioxide Level 24 21-32 mmol/L Anion Gap 8.0 3-11 mmol/L Blood Urea Nitrogen 14 7-18 mg/dl Creatinine 0.67 0.60-1.20 mg/dl Est Creatinine Clear Calc Drug Dose 43.9 ml/min Estimated GFR () 91.6 Estimated GFR (Non- 79.0 BUN/Creatinine Ratio 20.3 10-20 Random Glucose 87 70-99 mg/dl Calcium Level 8.5 8.5-10.1 mg/dl Phosphorus Level 1.5 2.5-4.9 mg/dl Magnesium Level 1.5 1.8-2.4 mg/dl Test 12/09/16 16:28 Range/Units Bedside Glucose 180 70-90 mg/dl Assessment and Plan This is a 86 y/o F with hx of DMII, HTN, CHF, Afib, and hx of CVA presented to the hospital s/p fall secondary to generalized weakness and found to have infected stage IV sacral decubitus ulcer. 1. Fall - It was mechanical fall secondary to generalized weakness. Patient didn't LOC or hit the floor. Weakness can be drug induced (was on glipizide) or could be due to malnutrition. - CT of head: There are age-related involutional changes noting moderate subcortical and periventricular microangiopathic change. Small chronic lacunar infarcts are present in the caudate heads. There is no hemorrhage, mass effect, or evidence of acute territorial ischemia by CT criteria. Hough-white matter is preserved. No extra-axial fluid collection is seen. 2. Stage IV sacral decubitus ulcer - Patient might have underlying osteomyelitis. - Coccynx X-ray: There is an age-indeterminate deformity of the lower sacrum/ coccyx. While this may simply be secondary to prior trauma, osteomyelitis cannot be excluded. If osteomyelitis is a clinical concern, then a cross- sectional imaging study would be recommended in follow-up. - Initially ordered MRI to rule out osteomyelitis but since she was claustrophobic she refused MRI 3X. Dr. Cornejo spoke with her and discussion she agreed to do bone scan. - Will continue IV daptomycin 275mg and Zosyn 115ml - Culture is pending 3. Lower extremities cellulites - Patient had b/l lower extremities cellulites in the sitting of chronic edema. Patient might have chronic venous stasis ulcer which attributed to the cellulites. - Continue with IV daptomycin 275mg and Zosyn 115ml 4. UTI - UA is nitrate (+) - Patient is already on antibiotic that would cover UTI 5. DM type 2 - Glipizide on hold - On Novolog sliding scale - Glucose is 140 -->180 6. HTN - Lisinopril on hold - BP is stable (130/51) - Continue to monitor 7. Hx of chronic diastolic CHF/Afib - Continue digoxin 125 g daily, diltiazem ER 100mg daily - Continue ASA 81 mg - Start Lasix 20mg daily - Daily I/O and weight check 8. Gout - Continue 300mg 9. Electrolytes abnormalities - Potassium is replete (5.1) - Check BMP in am 10. DVT prophylaxis - SCDs 11. Code status - Full code History Resident Physician Supervision Note: I was present with Dr. Lowe during the history and exam. I discussed the case with the resident and agree with the findings and plan as documented in the note. Any exceptions or clarifications are listed here. Pt seen and examined while walking with PT, as well as in bed. Reports considerable improvement in LE pain and swelling which is echoed by her family. Presently, reports no fever, PEREZ, lightheadedness, weakness, nausea, CP/ palpitations, SOB, leg swelling. General Appearance: WD/WN, no apparent distress, thin Respiratory: chest non-tender, lungs clear, normal breath sounds, no respiratory distress Cardiovascular: normal peripheral pulses, regular rate, rhythm, no murmur, other (trace edema of the b/l LE) Gastrointestinal: normal bowel sounds, non tender, soft, no organomegaly Extremities: non-tender, other (significantly improved coloration of the B/L LE since yesterday) Neurologic/Psychiatric: alert, normal mood/affect, oriented x 3 Assessment/Plan 86 y/o female h/o b/l LE venous stasis presents with weakness Stage IV decubitus ulcer - concerning for ?osteomyelitis - patient refused MRI x 3. After discussion, she is claustrophobic and refuses to go into such a small space. After some cajoling, she agrees to a bone scan of the area if her family can accompany her part way. Continue abx at present. UTI - covered w/ abx as above, f/u C/S Lower extremity cellulitis - continue abx DMII - hold glipizide and DO NOT RESTART. ISS Gout - continue allopurinol A. fib/chronic diastolic and CHF - continue digoxin, diltiazem, ASA. restart lasix in AM. hold lisinopril for now Hypokalemia - trend BMP s/p repletion
[2016-12-09] MEDS: DAPTOmycin IV 275 MG in SODIUM CHLORIDE 0.9% 50ML 50 ML IV SCH (19:41)
[2016-12-09 22:01] LABS: BUN/CREATININE RATIO 18.7 (10-20); CALCIUM 7.9 mg/dl (8.5-10.1); CREATININE 0.76 mg/dl (0.60-1.20); MAGNESIUM 1.8 mg/dl (1.8-2.4); PHOSPHORUS 2.2 mg/dl (2.5-4.9); POTASSIUM 3.9 mmol/L (3.5-5.1)
--- NOTE | 2016-12-09 22:03 | Infectious Disease Progress Nt ---
Progress Note Date of Service Dec 09, 2016. Subjective Pt evaluation today including: conversation w/ patient, physical exam, chart review, lab review, review of studies, conversation w/ inside solar sales consultant, review of inpatient medication list Pain in legs better today. Denies any other new complaints. Remains afebrile. Appears to be tolerating antibiotic without apparent difficulty. All Other Systems: Reviewed and Negative Medications Current Inpatient Medications Medications (Trade) Dose Ordered Sig/Kaylee Route Start Time Stop Time Status Last Admin Dose Admin Acetaminophen (Tylenol Tab) 650 mg Q4H PRN PO 12/07/16 14:00 01/06/17 13:59 12/08/16 12:34 650 MG Zolpidem Tartrate (Ambien Tab) 5 mg HSZ PRN PO 12/07/16 14:00 01/06/17 13:59 Allopurinol (Zyloprim Tab) 300 mg DAILY PO 12/08/16 09:00 01/07/17 08:59 12/09/16 08:37 300 MG Aspirin (Ecotrin Tab) 81 mg DAILY PO 12/08/16 09:00 01/07/17 08:59 12/09/16 08:29 81 MG Cholecalciferol (Vitamin D Tab) 2,000 inter.unit DAILY PO 12/08/16 09:00 01/07/17 08:59 12/09/16 08:36 2,000 INTER.UNIT Digoxin (Lanoxin Tab) 0.125 mg DAILY@1600 PO 12/07/16 16:00 01/06/17 15:59 12/09/16 16:23 0.125 MG Diltiazem HCl 120 mg 120 mg DAILY PO 12/08/16 09:00 01/07/17 08:59 12/09/16 08:34 120 MG Daptomycin/Sodium Chloride (Cubicin IV/Nss 50ml) 55.5 ml @ 100 mls/hr Q24H IV 12/07/16 17:00 12/17/16 16:59 12/09/16 19:41 100 MLS/HR Ondansetron HCl (Zofran Inj) 4 mg Q6H PRN IV 12/07/16 14:00 01/06/17 13:59 Insulin Aspart (novoLOG ASPART) SLIDING SCALE If C... ACHS SC 12/07/16 16:45 01/06/17 16:44 12/09/16 20:49 3 UNITS Glucose (Glucose 40% Gel) UD PRN PO 12/07/16 14:00 01/06/17 13:59 Glucose (Glucose Chew Tab) 1 tabs UD PRN PO 12/07/16 14:00 01/06/17 13:59 Dextrose (Dextrose 50% 50ML Syringe) 50 ml UD PRN IV 12/07/16 14:00 01/06/17 13:59 Glucagon (Glucagon Inj) 1 mg UD PRN SQ 12/07/16 14:00 01/06/17 13:59 Piperacillin Sod/ Tazobactam Sod 1 ea 1 ea UD PRN N/A 12/07/16 14:15 01/06/17 14:14 Piperacillin Sod/ Tazobactam Sod/ Dextrose (Zosyn Iv/D5 100ml) 115 ml @ 230 mls/hr Q6@0200,0800,1400,2000 IV 12/08/16 02:00 12/17/16 23:59 12/09/16 19:49 230 MLS/HR Enteral Nutritional Formula (Boost Glucose Control) 1 can BIDM PO 12/08/16 17:00 01/07/17 16:59 12/09/16 18:05 1 CAN Furosemide (Lasix Tab) 20 mg QAM PO 12/09/16 09:00 01/08/17 08:59 12/09/16 09:19 20 MG Objective Vital Signs Date Time Temp Pulse Resp B/P Pulse Ox O2 Delivery O2 Flow Rate FiO2 12/09/16 16:23 64 12/09/16 16:20 Room Air 12/09/16 15:38 37.1 68 20 130/51 93 Room Air 12/09/16 11:53 36.7 57 17 133/57 91 Room Air 12/09/16 10:17 90 Room Air 12/09/16 09:35 Room Air 12/09/16 07:56 37.0 70 15 150/57 90 Room Air 12/09/16 00:09 37.1 54 18 156/62 93 Room Air Physical Exam General Appearance: no apparent distress, + cachetic, + thin Eyes: normal inspection, EOMI, sclerae normal ENT: normal ENT inspection, pharynx normal Neck: supple, no adenopathy, thyroid normal, trachea midline Respiratory/Chest: lungs clear, normal breath sounds, no respiratory distress Cardiovascular: regular rate, rhythm, no gallop, no murmur Abdomen: normal bowel sounds, non tender, soft, no organomegaly Extremities: non-tender, no calf tenderness, + inflammation, + swelling Neurologic/Psychiatric: alert, oriented x 3 Skin: normal color, + pertinent finding (Erythema of the legs improved, less sacral erythema) Lymphatic: no adenopathy Laboratory Results Last 24 Hours Test 12/09/16 07:38 12/09/16 07:42 12/09/16 11:17 12/09/16 16:28 Bedside Glucose 87 mg/dl 140 mg/dl 180 mg/dl White Blood Count 11.41 K/uL Red Blood Count 2.85 M/uL Hemoglobin 9.3 g/dL Hematocrit 27.5 % Mean Corpuscular Volume 96.5 fL Mean Corpuscular Hemoglobin 32.6 pg Mean Corpuscular Hemoglobin Concent 33.8 g/dl Platelet Count 145 K/uL Mean Platelet Volume 11.3 fL Neutrophils (%) (Auto) 64.1 % Lymphocytes (%) (Auto) 24.7 % Monocytes (%) (Auto) 10.3 % Eosinophils (%) (Auto) 0.6 % Basophils (%) (Auto) 0.1 % Neutrophils # (Auto) 7.31 K/uL Lymphocytes # (Auto) 2.82 K/uL Monocytes # (Auto) 1.18 K/uL Eosinophils # (Auto) 0.07 K/uL Basophils # (Auto) 0.01 K/uL RDW Standard Deviation 52.9 fL RDW Coefficient of Variation 15.1 % Immature Granulocyte % (Auto) 0.2 % Immature Granulocyte # (Auto) 0.02 K/uL Sodium Level 147 mmol/L Potassium Level 5.1 mmol/L Chloride Level 115 mmol/L Carbon Dioxide Level 24 mmol/L Anion Gap 8.0 mmol/L Blood Urea Nitrogen 14 mg/dl Creatinine 0.67 mg/dl Est Creatinine Clear Calc Drug Dose 43.9 ml/min Estimated GFR () 91.6 Estimated GFR (Non- 79.0 BUN/Creatinine Ratio 20.3 Random Glucose 87 mg/dl Calcium Level 8.5 mg/dl Phosphorus Level 1.5 mg/dl Magnesium Level 1.5 mg/dl Test 12/09/16 20:30 12/09/16 21:12 Bedside Glucose 221 mg/dl Sodium Level 143 mmol/L Potassium Level 3.9 mmol/L Chloride Level 109 mmol/L Carbon Dioxide Level 24 mmol/L Anion Gap 10.0 mmol/L Blood Urea Nitrogen 14 mg/dl Creatinine 0.76 mg/dl Est Creatinine Clear Calc Drug Dose 38.7 ml/min Estimated GFR () 81.7 Estimated GFR (Non- 70.5 BUN/Creatinine Ratio 18.7 Random Glucose 174 mg/dl Calcium Level 7.9 mg/dl Phosphorus Level 2.2 mg/dl Magnesium Level 1.8 mg/dl Assessment and Plan infected stage IV sacral decubitus ulcer with probable underlying sacral osteomyelitis, as well as lower extremity cellulitis in the setting chronic severe edema. Patient to be continued on current broad-spectrum therapy pending final culture results. Continue follow up with the wound care service.
[2016-12-10 00:09] VITALS: BP 134/55; PULSE 58; TEMP 36.7; O2SAT 94
[2016-12-10] MEDS: PIPERACILL/TAZOBAC IV 3.375 GM in DEXTROSE 5% 100ML 100 ML IV SCH ×4 (02:31→20:23)
[2016-12-10] MEDS: BOOST GLUCOSE CONTROL PO SCH ×2 (08:00→16:36)
[2016-12-10 08:11] LABS: BASO % 0.2 %; BASO ABS # 0.02 K/uL (0-0.2); EOS % 0.3 %; HEMATOCRIT 26.2 % (37-47); IG% 0.3 %; LYMPH % 20.1 %; LYMPH ABS # 2.42 K/uL (1.2-3.4); MEAN CORPUSCULAR HEMOGLOBIN 32.2 pg (25-34); MEAN CORPUSCULAR HGB CONC 33.6 g/dl (32-36); MEAN PLATELET VOLUME 11.3 fL (7.4-10.4); MONO % 10.5 %; NEUT % 68.6 %; PLATELET COUNT 138 K/uL (130-400); RED BLOOD COUNT 2.73 M/uL (4.2-5.4); WHITE BLOOD COUNT 12.03 K/uL (4.8-10.8)
[2016-12-10 08:21] VITALS: BP 136/61; PULSE 69; TEMP 37.5; O2SAT 83
[2016-12-10 08:32] LABS: COMPLETE YES
[2016-12-10] MEDS: INSULIN ASPART 100 UNITS/ML 3 ML PEN SC SCH ×4 (08:38→20:22)
[2016-12-10] MEDS: CHOLECALCIFEROL 1000 INTER.UNIT TAB PO SCH (08:39)
[2016-12-10] MEDS: FUROSEMIDE 20 MG TAB PO SCH (08:39)
[2016-12-10] MEDS: DILTIAZEM HCL 120 MG EXT REL CAP PO SCH (08:39)
[2016-12-10] MEDS: ALLOPURINOL 300 MG TAB PO SCH (08:39)
[2016-12-10] MEDS: ASPIRIN 81 MG ECTAB PO SCH (08:39)
[2016-12-10 08:48] LABS: BUN/CREATININE RATIO 23.1 (10-20); CALCIUM 7.9 mg/dl (8.5-10.1); CREATININE 0.67 mg/dl (0.60-1.20); MAGNESIUM 1.7 mg/dl (1.8-2.4); POTASSIUM 3.8 mmol/L (3.5-5.1)
--- NOTE | 2016-12-10 10:15 | Family Medicine Progress Note ---
Progress Note Date of Service Dec 10, 2016. Subjective Pt evaluation today including: conversation w/ patient, physical exam Patient was doing fine this morning. However later in the morning family complained of sudden change in behavior. She was agitated and her behavior was not normal per family. Her O2 sat went down in 70s and she needs to put on oxygen supplement. She denies any chest pain, nausea, vomiting, abdominal pain, dysuria, knee pain or any other additional complaints. Constitutional: No fever Respiratory: No cough, No dyspnea on exertion, No shortness of breath, No sputum, No wheezing Cardiovascular: No chest pain Abdomen: No constipation, No diarrhea, No nausea, No pain, No vomiting Musculoskeletal: No muscle pain Medications Current Inpatient Medications Medications (Trade) Dose Ordered Sig/Kaylee Route Start Time Stop Time Status Last Admin Dose Admin Acetaminophen (Tylenol Tab) 650 mg Q4H PRN PO 12/07/16 14:00 01/06/17 13:59 12/08/16 12:34 650 MG Zolpidem Tartrate (Ambien Tab) 5 mg HSZ PRN PO 12/07/16 14:00 01/06/17 13:59 Allopurinol (Zyloprim Tab) 300 mg DAILY PO 12/08/16 09:00 01/07/17 08:59 12/10/16 08:39 300 MG Aspirin (Ecotrin Tab) 81 mg DAILY PO 12/08/16 09:00 01/07/17 08:59 12/10/16 08:39 81 MG Cholecalciferol (Vitamin D Tab) 2,000 inter.unit DAILY PO 12/08/16 09:00 01/07/17 08:59 12/10/16 08:39 2,000 INTER.UNIT Digoxin (Lanoxin Tab) 0.125 mg DAILY@1600 PO 12/07/16 16:00 01/06/17 15:59 12/10/16 16:30 0.125 MG Diltiazem HCl 120 mg 120 mg DAILY PO 12/08/16 09:00 01/07/17 08:59 12/10/16 08:39 120 MG Daptomycin/Sodium Chloride (Cubicin IV/Nss 50ml) 55.5 ml @ 100 mls/hr Q24H IV 12/07/16 17:00 12/17/16 16:59 12/10/16 16:36 100 MLS/HR Ondansetron HCl (Zofran Inj) 4 mg Q6H PRN IV 12/07/16 14:00 01/06/17 13:59 Insulin Aspart (novoLOG ASPART) SLIDING SCALE If C... ACHS SC 12/07/16 16:45 01/06/17 16:44 12/10/16 14:00 2 UNITS Glucose (Glucose 40% Gel) UD PRN PO 12/07/16 14:00 01/06/17 13:59 Glucose (Glucose Chew Tab) 1 tabs UD PRN PO 12/07/16 14:00 01/06/17 13:59 Dextrose (Dextrose 50% 50ML Syringe) 50 ml UD PRN IV 12/07/16 14:00 01/06/17 13:59 Glucagon (Glucagon Inj) 1 mg UD PRN SQ 12/07/16 14:00 01/06/17 13:59 Piperacillin Sod/ Tazobactam Sod 1 ea 1 ea UD PRN N/A 12/07/16 14:15 01/06/17 14:14 Piperacillin Sod/ Tazobactam Sod/ Dextrose (Zosyn Iv/D5 100ml) 115 ml @ 230 mls/hr Q6@0200,0800,1400,2000 IV 12/08/16 02:00 12/17/16 23:59 12/10/16 13:58 230 MLS/HR Enteral Nutritional Formula 1 can 1 can BIDM PO 12/08/16 17:00 01/07/17 16:59 12/10/16 16:36 1 CAN Furosemide 20 mg/ Syringe 2 ml @ 4 mls/min DAILY IV 12/11/16 09:00 01/10/17 08:59 Sodium Phosphate/ Sodium Chloride (Sodium Phosphate Inj/Nss 250ml) 255 ml @ 88 mls/hr TODAY@1830 IV 12/10/16 18:30 12/10/16 21:24 12/10/16 18:16 88 MLS/HR Objective Vital Signs Date Time Temp Pulse Resp B/P Pulse Ox O2 Delivery O2 Flow Rate FiO2 12/10/16 16:30 Room Air 12/10/16 16:30 64 12/10/16 15:07 36.4 60 18 179/69 98 Room Air 12/10/16 10:05 Room Air 12/10/16 08:21 37.5 69 18 136/61 83 Room Air 12/10/16 00:09 36.7 58 18 134/55 94 Room Air 12/10/16 00:00 Room Air Physical Exam General Appearance: no apparent distress, + cachetic, + thin Neck: supple, trachea midline Respiratory/Chest: chest non-tender, + decreased breath sounds, + crackles Cardiovascular: regular rate, rhythm Abdomen: normal bowel sounds, non tender, soft Extremities: + inflammation, + pedal edema Neurologic/Psychiatric: alert, normal mood/affect, oriented x 3 Skin: normal color, warm/dry, + pertinent finding (b/l lower extremities with improving edema and weeping) Laboratory Results Results Past 24 Hours Test 12/09/16 20:30 12/09/16 21:12 12/10/16 07:33 12/10/16 07:37 Range/Units Bedside Glucose 221 103 70-90 mg/dl Sodium Level 143 143 136-145 mmol/L Potassium Level 3.9 3.8 3.5-5.1 mmol/L Chloride Level 109 112 98-107 mmol/L Carbon Dioxide Level 24 22 21-32 mmol/L Anion Gap 10.0 9.0 3-11 mmol/L Blood Urea Nitrogen 14 16 7-18 mg/dl Creatinine 0.76 0.67 0.60-1.20 mg/dl Est Creatinine Clear Calc Drug Dose 38.7 43.9 ml/min Estimated GFR () 81.7 91.6 Estimated GFR (Non- 70.5 79.0 BUN/Creatinine Ratio 18.7 23.1 10-20 Random Glucose 174 97 70-99 mg/dl Calcium Level 7.9 7.9 8.5-10.1 mg/dl Phosphorus Level 2.2 2.5-4.9 mg/dl Magnesium Level 1.8 1.7 1.8-2.4 mg/dl White Blood Count 12.03 4.8-10.8 K/uL Red Blood Count 2.73 4.2-5.4 M/uL Hemoglobin 8.8 12.0-16.0 g/dL Hematocrit 26.2 37-47 % Mean Corpuscular Volume 96.0 80-100 fL Mean Corpuscular Hemoglobin 32.2 25-34 pg Mean Corpuscular Hemoglobin Concent 33.6 32-36 g/dl Platelet Count 138 130-400 K/uL Mean Platelet Volume 11.3 7.4-10.4 fL Neutrophils (%) (Auto) 68.6 % Lymphocytes (%) (Auto) 20.1 % Monocytes (%) (Auto) 10.5 % Eosinophils (%) (Auto) 0.3 % Basophils (%) (Auto) 0.2 % Neutrophils # (Auto) 8.25 1.4-6.5 K/uL Lymphocytes # (Auto) 2.42 1.2-3.4 K/uL Monocytes # (Auto) 1.26 0.11-0.59 K/uL Eosinophils # (Auto) 0.04 0-0.5 K/uL Basophils # (Auto) 0.02 0-0.2 K/uL RDW Standard Deviation 52.5 36.4-46.3 fL RDW Coefficient of Variation 15.1 11.5-14.5 % Immature Granulocyte % (Auto) 0.3 % Immature Granulocyte # (Auto) 0.04 0.00-0.02 K/uL Red Blood Cell Morphology Unremarkable Test 12/10/16 11:25 12/10/16 14:00 12/10/16 16:18 12/10/16 20:00 Range/Units Bedside Glucose 184 148 70-90 mg/dl White Blood Count 13.43 4.8-10.8 K/uL Red Blood Count 2.79 4.2-5.4 M/uL Hemoglobin 9.3 12.0-16.0 g/dL Hematocrit 27.2 37-47 % Mean Corpuscular Volume 97.5 80-100 fL Mean Corpuscular Hemoglobin 33.3 25-34 pg Mean Corpuscular Hemoglobin Concent 34.2 32-36 g/dl RDW Standard Deviation 53.5 36.4-46.3 fL RDW Coefficient of Variation 15.1 11.5-14.5 % Platelet Count 143 130-400 K/uL Mean Platelet Volume 11.4 7.4-10.4 fL Sodium Level 142 136-145 mmol/L Potassium Level 3.8 3.5-5.1 mmol/L Chloride Level 110 98-107 mmol/L Carbon Dioxide Level 24 21-32 mmol/L Anion Gap 8.0 3-11 mmol/L Blood Urea Nitrogen 15 7-18 mg/dl Creatinine 0.71 0.60-1.20 mg/dl Est Creatinine Clear Calc Drug Dose 41.4 ml/min Estimated GFR () 88.8 Estimated GFR (Non- 76.6 BUN/Creatinine Ratio 21.3 10-20 Random Glucose 131 70-99 mg/dl Calcium Level 8.3 8.5-10.1 mg/dl Test 12/10/16 20:08 Range/Units Bedside Glucose 185 70-90 mg/dl Assessment and Plan This is a 86 y/o F with hx of DMII, HTN, CHF, Afib, and hx of CVA presented to the hospital s/p fall secondary to generalized weakness and found to have infected stage IV sacral decubitus ulcer. 1. Mechanical Fall - It was mechanical fall secondary to generalized weakness. Patient didn't LOC or hit the floor. Weakness can be drug induced (was on glipizide) or could be due to malnutrition. - CT of head (12/07): There are age-related involutional changes noting moderate subcortical and periventricular microangiopathic change. Small chronic lacunar infarcts are present in the caudate heads. There is no hemorrhage, mass effect, or evidence of acute territorial ischemia by CT criteria. Hough-white matter is preserved. No extra-axial fluid collection is seen. 2. Stage IV sacral decubitus ulcer - Patient might have underlying osteomyelitis. - Coccyx X-ray: There is an age-indeterminate deformity of the lower sacrum/ coccyx. While this may simply be secondary to prior trauma, osteomyelitis cannot be excluded. If osteomyelitis is a clinical concern, then a cross- sectional imaging study would be recommended in follow-up. - Initially ordered MRI to rule out osteomyelitis but since she was claustrophobic she refused MRI 3X. Dr. Cornejo spoke with her and discussion she agreed to do bone scan. - Bone scan of sacrum pending - Will continue IV daptomycin 275mg and Zosyn 115ml - Culture is pending 3. Lower extremities cellulites - Patient had b/l lower extremities cellulites in the sitting of chronic edema. Patient might have chronic venous stasis ulcer which attributed to the cellulites. - Continue with IV daptomycin 275mg and Zosyn 115ml 4. UTI - UA is nitrate (+) - Patient is already on antibiotic that would cover UTI 5. New Onset of behavioral change - Patient is most likely delirious secondary to sundowning and been in unfamiliar environment for long period of time. Given she is severe pain and hypoxic today, which might have contributed to her symptoms - CT of head normal - CXR suggest of pulmonary edema - BMP and CBC was also repeated 6. DM type 2 - Glipizide on hold - On Novolog sliding scale - Glucose is 140 -->180 7. HTN - Lisinopril on hold - BP is stable (130/51) - Continue to monitor 8. Hx of chronic diastolic CHF/Afib - Continue digoxin 125 g daily, diltiazem ER 100mg daily - Continue ASA 81 mg - CXR suggested to pulmonary edema - Switch PO to IV Lasix 20mg daily - Daily I/O and weight check 9. Gout - Continue 300mg 10. Electrolytes abnormalities - Potassium is replete (5.1) - Check BMP in am 11. DVT prophylaxis - SCDs 12. Code status - Full code History Resident Physician Supervision Note: I was present with Dr. Lowe during the history and exam. I discussed the case with the resident and agree with the findings and plan as documented in the note. Any exceptions or clarifications are listed here. Family complains today of altered behavior today following pain w/ transition. On encounter, she is oriented x 3 and mostly appropriate, but mood is somewhat labile in comparison. Reports no PEREZ, vision changes, SOB, CP, nausea, sensory changes. 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 Stage IV decubitus ulcer - concerning for ?osteomyelitis - patient refused MRI x 3. Bone scan refused today by family 2/2 behavioral changes. Continue abx UTI - covered w/ abx as above, f/u C/S Lower extremity cellulitis - continue abx DMII - hold glipizide and DO NOT RESTART. ISS Gout - continue allopurinol A. fib/chronic diastolic and CHF - continue digoxin, diltiazem, ASA. lasix IV. hold lisinopril for now Hypokalemia - trend BMP s/p repletion
[2016-12-10 14:17] LABS: HEMATOCRIT 27.2 % (37-47); MEAN CELL VOLUME 97.5 fL (80-100); MEAN CORPUSCULAR HEMOGLOBIN 33.3 pg (25-34); MEAN PLATELET VOLUME 11.4 fL (7.4-10.4); PLATELET COUNT 143 K/uL (130-400); RED BLOOD COUNT 2.79 M/uL (4.2-5.4); WHITE BLOOD COUNT 13.43 K/uL (4.8-10.8)
--- NOTE | 2016-12-10 14:36 | DIAGNOSTIC IMAGING REPORT ---
CHEST 2 VIEWS ROUTINE CLINICAL HISTORY: Cough, elevated white count. COMPARISON STUDY: 12/07/2016 FINDINGS: The heart is enlarged. Since the prior study, the patient developed bilateral pleural effusions. There is diffuse elevation interstitium consistent with congestive failure. There are more focal airspace opacities within left perihilar region and diffusely within the right lung. While likely representing pulmonary edema, given the history of cough and elevated white count this could represent a super imposed pneumonia[ IMPRESSION: 1. Radiographic evidence of congestive failure with cardiomegaly, bilateral pleural effusions, and an elevated interstitium. More focal airspace opacities within the right lung and left perihilar region, could represent either focal edema or a superimposed pneumonia. Clinical and radiographic follow-up is recommended. Electronically signed by: Nahid De La Fuente M.D. 12/10/2016 2:35 PM Dictated Date/Time: 12/10/2016 2:33 PM
[2016-12-10 14:37] LABS: MEAN CORPUSCULAR HGB CONC 34.2 g/dl (32-36)
--- NOTE | 2016-12-10 14:40 | DIAGNOSTIC IMAGING REPORT ---
CT HEAD WITHOUT CONTRAST (CT) CLINICAL HISTORY: Change in mental status with agitation and delirium. COMPARISON STUDY: 12/07/2016 TECHNIQUE: Axial CT of the brain is performed from the vertex to the skull base. IV contrast was not administered for this examination. CT DOSE: 1151.75 mGy.cm FINDINGS: No intra or extra-axial mass lesions are visualized. There is no CT evidence of acute cortical infarction. There is no evidence of midline shift. There is no acute hemorrhage. No calvarial fractures are visualized. There are patchy white matter hypodensities likely on a small vessel basis. There is an old left parietal infarct. There is no evidence of pathologic ventricular dilatation. There is no evidence of acute sinusitis The study is compromised secondary to patient motion artifact IMPRESSION: No acute intracranial findings Electronically signed by: Nahid De La Fuente M.D. 12/10/2016 2:39 PM Dictated Date/Time: 12/10/2016 2:37 PM
[2016-12-10 14:59] LABS: BUN/CREATININE RATIO 21.3 (10-20); CALCIUM 8.3 mg/dl (8.5-10.1); CREATININE 0.71 mg/dl (0.60-1.20); POTASSIUM 3.8 mmol/L (3.5-5.1)
[2016-12-10 15:07] VITALS: BP 179/69; PULSE 60; TEMP 36.4; O2SAT 98
[2016-12-10] MEDS ORDERED: FUROSEMIDE INJ 20 MG in SYRINGE 0 ML IV ONE (16:30)
[2016-12-10] MEDS: DIGOXIN 0.125 MG TAB PO SCH (16:30)
[2016-12-10] MEDS: DAPTOmycin IV 275 MG in SODIUM CHLORIDE 0.9% 50ML 50 ML IV SCH (16:36)
[2016-12-10] MEDS ORDERED: SODIUM PHOSPHATE 3 MMOL/1 ML INFUSION IV STA (17:27)
[2016-12-10] MEDS ORDERED: MAGNESIUM SULFATE 1GM / D5W 1 GM in PREMIXED IN D5W 100 ML IV SCH (18:15)
[2016-12-10] MEDS ORDERED: SODIUM PHOSPHATE INJ 15 MMOL in SODIUM CHLORIDE 0.9% 250ML 250 ML IV SCH (18:30)
--- NOTE | 2016-12-10 19:54 | Infectious Disease Progress Nt ---
Progress Note Date of Service Dec 10, 2016. Subjective Pt evaluation today including: conversation w/ patient, physical exam, chart review, lab review, review of studies, conversation w/ it architecture consultant, review of inpatient medication list Had episode of confusion associated with hypoxia, now better with O2. No fever. All Other Systems: Reviewed and Negative Medications Current Inpatient Medications Medications (Trade) Dose Ordered Sig/Kaylee Route Start Time Stop Time Status Last Admin Dose Admin Acetaminophen (Tylenol Tab) 650 mg Q4H PRN PO 12/07/16 14:00 01/06/17 13:59 12/08/16 12:34 650 MG Zolpidem Tartrate (Ambien Tab) 5 mg HSZ PRN PO 12/07/16 14:00 01/06/17 13:59 Allopurinol (Zyloprim Tab) 300 mg DAILY PO 12/08/16 09:00 01/07/17 08:59 12/10/16 08:39 300 MG Aspirin (Ecotrin Tab) 81 mg DAILY PO 12/08/16 09:00 01/07/17 08:59 12/10/16 08:39 81 MG Cholecalciferol (Vitamin D Tab) 2,000 inter.unit DAILY PO 12/08/16 09:00 01/07/17 08:59 12/10/16 08:39 2,000 INTER.UNIT Digoxin (Lanoxin Tab) 0.125 mg DAILY@1600 PO 12/07/16 16:00 01/06/17 15:59 12/10/16 16:30 0.125 MG Diltiazem HCl 120 mg 120 mg DAILY PO 12/08/16 09:00 01/07/17 08:59 12/10/16 08:39 120 MG Daptomycin/Sodium Chloride (Cubicin IV/Nss 50ml) 55.5 ml @ 100 mls/hr Q24H IV 12/07/16 17:00 12/17/16 16:59 12/10/16 16:36 100 MLS/HR Ondansetron HCl (Zofran Inj) 4 mg Q6H PRN IV 12/07/16 14:00 01/06/17 13:59 Insulin Aspart (novoLOG ASPART) SLIDING SCALE If C... ACHS SC 12/07/16 16:45 01/06/17 16:44 12/10/16 14:00 2 UNITS Glucose (Glucose 40% Gel) UD PRN PO 12/07/16 14:00 01/06/17 13:59 Glucose (Glucose Chew Tab) 1 tabs UD PRN PO 12/07/16 14:00 01/06/17 13:59 Dextrose (Dextrose 50% 50ML Syringe) 50 ml UD PRN IV 12/07/16 14:00 01/06/17 13:59 Glucagon (Glucagon Inj) 1 mg UD PRN SQ 12/07/16 14:00 01/06/17 13:59 Piperacillin Sod/ Tazobactam Sod 1 ea 1 ea UD PRN N/A 12/07/16 14:15 01/06/17 14:14 Piperacillin Sod/ Tazobactam Sod/ Dextrose (Zosyn Iv/D5 100ml) 115 ml @ 230 mls/hr Q6@0200,0800,1400,2000 IV 12/08/16 02:00 12/17/16 23:59 12/10/16 13:58 230 MLS/HR Enteral Nutritional Formula 1 can 1 can BIDM PO 12/08/16 17:00 01/07/17 16:59 12/10/16 16:36 1 CAN Furosemide 20 mg/ Syringe 2 ml @ 4 mls/min DAILY IV 12/11/16 09:00 01/10/17 08:59 Sodium Phosphate/ Sodium Chloride (Sodium Phosphate Inj/Nss 250ml) 255 ml @ 88 mls/hr TODAY@1830 IV 12/10/16 18:30 12/10/16 21:24 12/10/16 18:16 88 MLS/HR Objective Vital Signs Date Time Temp Pulse Resp B/P Pulse Ox O2 Delivery O2 Flow Rate FiO2 12/10/16 16:30 Room Air 12/10/16 16:30 64 12/10/16 15:07 36.4 60 18 179/69 98 Room Air 12/10/16 10:05 Room Air 12/10/16 08:21 37.5 69 18 136/61 83 Room Air 12/10/16 00:09 36.7 58 18 134/55 94 Room Air 12/10/16 00:00 Room Air Physical Exam General Appearance: no apparent distress, + thin Eyes: normal inspection, sclerae normal ENT: normal ENT inspection, pharynx normal Neck: supple, no adenopathy, trachea midline Respiratory/Chest: chest non-tender, lungs clear, normal breath sounds, no respiratory distress Cardiovascular: regular rate, rhythm, no gallop, no murmur Abdomen: normal bowel sounds, non tender, soft, no organomegaly Extremities: non-tender, + inflammation, + swelling Neurologic/Psychiatric: alert, oriented x 3 Skin: normal color, + pertinent finding ( improving lower extremity cellulitis , sacral decubitus improved.) Lymphatic: no adenopathy Laboratory Results Last 24 Hours Test 12/09/16 20:30 12/09/16 21:12 12/10/16 07:33 12/10/16 07:37 Bedside Glucose 221 mg/dl 103 mg/dl Sodium Level 143 mmol/L 143 mmol/L Potassium Level 3.9 mmol/L 3.8 mmol/L Chloride Level 109 mmol/L 112 mmol/L Carbon Dioxide Level 24 mmol/L 22 mmol/L Anion Gap 10.0 mmol/L 9.0 mmol/L Blood Urea Nitrogen 14 mg/dl 16 mg/dl Creatinine 0.76 mg/dl 0.67 mg/dl Est Creatinine Clear Calc Drug Dose 38.7 ml/min 43.9 ml/min Estimated GFR () 81.7 91.6 Estimated GFR (Non- 70.5 79.0 BUN/Creatinine Ratio 18.7 23.1 Random Glucose 174 mg/dl 97 mg/dl Calcium Level 7.9 mg/dl 7.9 mg/dl Phosphorus Level 2.2 mg/dl Magnesium Level 1.8 mg/dl 1.7 mg/dl White Blood Count 12.03 K/uL Red Blood Count 2.73 M/uL Hemoglobin 8.8 g/dL Hematocrit 26.2 % Mean Corpuscular Volume 96.0 fL Mean Corpuscular Hemoglobin 32.2 pg Mean Corpuscular Hemoglobin Concent 33.6 g/dl Platelet Count 138 K/uL Mean Platelet Volume 11.3 fL Neutrophils (%) (Auto) 68.6 % Lymphocytes (%) (Auto) 20.1 % Monocytes (%) (Auto) 10.5 % Eosinophils (%) (Auto) 0.3 % Basophils (%) (Auto) 0.2 % Neutrophils # (Auto) 8.25 K/uL Lymphocytes # (Auto) 2.42 K/uL Monocytes # (Auto) 1.26 K/uL Eosinophils # (Auto) 0.04 K/uL Basophils # (Auto) 0.02 K/uL RDW Standard Deviation 52.5 fL RDW Coefficient of Variation 15.1 % Immature Granulocyte % (Auto) 0.3 % Immature Granulocyte # (Auto) 0.04 K/uL Red Blood Cell Morphology Unremarkable Test 12/10/16 11:25 12/10/16 14:00 12/10/16 16:18 Bedside Glucose 184 mg/dl 148 mg/dl White Blood Count 13.43 K/uL Red Blood Count 2.79 M/uL Hemoglobin 9.3 g/dL Hematocrit 27.2 % Mean Corpuscular Volume 97.5 fL Mean Corpuscular Hemoglobin 33.3 pg Mean Corpuscular Hemoglobin Concent 34.2 g/dl RDW Standard Deviation 53.5 fL RDW Coefficient of Variation 15.1 % Platelet Count 143 K/uL Mean Platelet Volume 11.4 fL Sodium Level 142 mmol/L Potassium Level 3.8 mmol/L Chloride Level 110 mmol/L Carbon Dioxide Level 24 mmol/L Anion Gap 8.0 mmol/L Blood Urea Nitrogen 15 mg/dl Creatinine 0.71 mg/dl Est Creatinine Clear Calc Drug Dose 41.4 ml/min Estimated GFR () 88.8 Estimated GFR (Non- 76.6 BUN/Creatinine Ratio 21.3 Random Glucose 131 mg/dl Calcium Level 8.3 mg/dl Assessment and Plan infected stage IV sacral decubitus ulcer with probable underlying sacral osteomyelitis, as well as lower extremity cellulitis in the setting chronic severe edema. Patient appears to be improving, and should be continued on current broad-spectrum therapy pending final culture results. Continue follow up with the wound care service.
[2016-12-10 23:59] VITALS: BP 153/67; PULSE 79; TEMP 37.2; O2SAT 90
[2016-12-11 00:15] VITALS: O2SAT 90
[2016-12-11] MEDS: PIPERACILL/TAZOBAC IV 3.375 GM in DEXTROSE 5% 100ML 100 ML IV SCH ×4 (02:00→20:48)
[2016-12-11 07:31] LABS: HEMATOCRIT 25.4 % (37-47); MEAN CELL VOLUME 96.2 fL (80-100); MEAN CORPUSCULAR HEMOGLOBIN 32.6 pg (25-34); MEAN CORPUSCULAR HGB CONC 33.9 g/dl (32-36); MEAN PLATELET VOLUME 11.6 fL (7.4-10.4); PLATELET COUNT 154 K/uL (130-400); RED BLOOD COUNT 2.64 M/uL (4.2-5.4); WHITE BLOOD COUNT 12.91 K/uL (4.8-10.8)
[2016-12-11 07:49] VITALS: BP 134/55; PULSE 57; TEMP 37; O2SAT 95
[2016-12-11] MEDS: INSULIN ASPART 100 UNITS/ML 3 ML PEN SC SCH ×4 (07:50→20:51)
[2016-12-11 08:00] VITALS: O2SAT 95
[2016-12-11] MEDS: BOOST GLUCOSE CONTROL PO SCH ×2 (08:00→17:37)
[2016-12-11] MEDS: ASPIRIN 81 MG ECTAB PO SCH (08:04)
[2016-12-11] MEDS: DILTIAZEM HCL 120 MG EXT REL CAP PO SCH (08:05)
[2016-12-11 08:11] LABS: BUN/CREATININE RATIO 23.3 (10-20); CALCIUM 7.8 mg/dl (8.5-10.1); CREATININE 0.64 mg/dl (0.60-1.20); MAGNESIUM 1.9 mg/dl (1.8-2.4); POTASSIUM 3.4 mmol/L (3.5-5.1)
[2016-12-11 08:17] LABS: PHOSPHORUS 2.4 mg/dl (2.5-4.9)
[2016-12-11] MEDS: CHOLECALCIFEROL 1000 INTER.UNIT TAB PO SCH (09:07)
[2016-12-11] MEDS: ALLOPURINOL 300 MG TAB PO SCH (09:08)
--- NOTE | 2016-12-11 09:40 | Family Medicine Progress Note ---
Progress Note Date of Service Dec 11, 2016. Subjective Pt evaluation today including: conversation w/ patient, physical exam, chart review, lab review, review of studies Voiding: najera catheter in place Patient was seen at the bedside. She is orientated and not agitated today. She is tolerating food well. She denies any chest pain, SOB, nausea, vomiting, abdominal pain, LE pain, or any other additional problems. Patient is still hypoxic and requiring oxygen support. Constitutional: No fever Respiratory: No cough, No dyspnea on exertion, No shortness of breath, No sputum, No wheezing Cardiovascular: No chest pain Abdomen: No constipation, No diarrhea, No nausea, No pain, No vomiting Female : No dysuria Medications Current Inpatient Medications Medications (Trade) Dose Ordered Sig/Kaylee Route Start Time Stop Time Status Last Admin Dose Admin Acetaminophen (Tylenol Tab) 650 mg Q4H PRN PO 12/07/16 14:00 01/06/17 13:59 12/08/16 12:34 650 MG Zolpidem Tartrate (Ambien Tab) 5 mg HSZ PRN PO 12/07/16 14:00 01/06/17 13:59 Allopurinol (Zyloprim Tab) 300 mg DAILY PO 12/08/16 09:00 01/07/17 08:59 12/11/16 09:08 300 MG Aspirin (Ecotrin Tab) 81 mg DAILY PO 12/08/16 09:00 01/07/17 08:59 12/11/16 08:04 81 MG Cholecalciferol (Vitamin D Tab) 2,000 inter.unit DAILY PO 12/08/16 09:00 01/07/17 08:59 12/11/16 09:07 2,000 INTER.UNIT Digoxin (Lanoxin Tab) 0.125 mg DAILY@1600 PO 12/07/16 16:00 01/06/17 15:59 12/10/16 16:30 0.125 MG Diltiazem HCl 120 mg 120 mg DAILY PO 12/08/16 09:00 01/07/17 08:59 12/11/16 08:05 120 MG Daptomycin/Sodium Chloride (Cubicin IV/Nss 50ml) 55.5 ml @ 100 mls/hr Q24H IV 12/07/16 17:00 12/17/16 16:59 12/10/16 16:36 100 MLS/HR Ondansetron HCl (Zofran Inj) 4 mg Q6H PRN IV 12/07/16 14:00 01/06/17 13:59 Insulin Aspart (novoLOG ASPART) SLIDING SCALE If C... ACHS SC 12/07/16 16:45 01/06/17 16:44 12/10/16 20:22 2 UNITS Glucose (Glucose 40% Gel) UD PRN PO 12/07/16 14:00 01/06/17 13:59 Glucose (Glucose Chew Tab) 1 tabs UD PRN PO 12/07/16 14:00 01/06/17 13:59 Dextrose (Dextrose 50% 50ML Syringe) 50 ml UD PRN IV 12/07/16 14:00 01/06/17 13:59 Glucagon (Glucagon Inj) 1 mg UD PRN SQ 12/07/16 14:00 01/06/17 13:59 Piperacillin Sod/ Tazobactam Sod (Consult) 1 ea UD PRN N/A 12/07/16 14:15 01/06/17 14:14 Enteral Nutritional Formula 1 can 1 can BIDM PO 12/08/16 17:00 01/07/17 16:59 12/10/16 16:36 1 CAN Furosemide 20 mg/ Syringe 2 ml @ 4 mls/min DAILY IV 12/11/16 09:00 01/10/17 08:59 12/11/16 10:32 4 MLS/MIN Piperacillin Sod/ Tazobactam Sod 3.375 gm/Dextrose 115 ml @ 28.75 mls/ hr Q8@0400,1200,2000 IV 12/11/16 20:00 12/17/16 23:59 Sodium Phosphate/ Sodium Chloride (Sodium Phosphate Inj/Nss 250ml) 255 ml @ 102 mls/hr TODAY@1545 IV 12/11/16 15:45 12/11/16 18:14 12/11/16 15:59 102 MLS/HR Objective Vital Signs Date Time Temp Pulse Resp B/P Pulse Ox O2 Delivery O2 Flow Rate FiO2 12/11/16 16:00 48 12/11/16 14:49 36.4 50 22 115/49 90 Nasal Cannula 3.0 12/11/16 10:08 95 Nasal Cannula 3.0 12/11/16 08:00 95 Nasal Cannula 3.0 12/11/16 07:49 37.0 57 20 134/55 95 Nasal Cannula 3.0 12/11/16 00:15 90 3.0 12/10/16 23:59 37.2 79 20 153/67 90 Nasal Cannula 3.0 Physical Exam General Appearance: no apparent distress Neck: supple, trachea midline Respiratory/Chest: chest non-tender, normal breath sounds, no respiratory distress Cardiovascular: regular rate, rhythm Abdomen: normal bowel sounds, non tender, soft, + distended Extremities: + inflammation, + swelling Neurologic/Psychiatric: alert, normal mood/affect Skin: normal color, warm/dry, + pertinent finding (b/l lower extremities cellulities improved significantly) Laboratory Results Results Past 24 Hours Test 12/10/16 20:08 12/10/16 20:55 12/11/16 06:22 12/11/16 07:36 Range/Units Bedside Glucose 185 101 70-90 mg/dl Phosphorus Level 3.0 2.4 2.5-4.9 mg/dl White Blood Count 12.91 4.8-10.8 K/uL Red Blood Count 2.64 4.2-5.4 M/uL Hemoglobin 8.6 12.0-16.0 g/dL Hematocrit 25.4 37-47 % Mean Corpuscular Volume 96.2 80-100 fL Mean Corpuscular Hemoglobin 32.6 25-34 pg Mean Corpuscular Hemoglobin Concent 33.9 32-36 g/dl RDW Standard Deviation 52.1 36.4-46.3 fL RDW Coefficient of Variation 14.9 11.5-14.5 % Platelet Count 154 130-400 K/uL Mean Platelet Volume 11.6 7.4-10.4 fL Sodium Level 142 136-145 mmol/L Potassium Level 3.4 3.5-5.1 mmol/L Chloride Level 109 98-107 mmol/L Carbon Dioxide Level 26 21-32 mmol/L Anion Gap 7.0 3-11 mmol/L Blood Urea Nitrogen 15 7-18 mg/dl Creatinine 0.64 0.60-1.20 mg/dl Est Creatinine Clear Calc Drug Dose 45.9 ml/min Estimated GFR () 93.0 Estimated GFR (Non- 80.2 BUN/Creatinine Ratio 23.3 10-20 Random Glucose 100 70-99 mg/dl Calcium Level 7.8 8.5-10.1 mg/dl Magnesium Level 1.9 1.8-2.4 mg/dl Test 12/11/16 10:47 12/11/16 16:31 Range/Units Bedside Glucose 142 234 70-90 mg/dl Microbiology Results 12/11/16 C.difficile Toxin B Gene (PCR), Received Pending Assessment and Plan This is a 86 y/o F with hx of DMII, HTN, CHF, Afib, and hx of CVA presented to the hospital s/p fall secondary to generalized weakness and found to have infected stage IV sacral decubitus ulcer. 1. Acute hypoxia - Patient is still requiring oxygen supplement - CXR showed pleural effusion - Lasix was change from PO to IV yesterday. Pulmonary exam is improved today. - Her mental status has improved, she is back her baseline - Continue to monitor 2. Diarrhea - Most likely / to potassium supplement - C.diff is negative 3. New Onset of behavioral change - Resolved, patient was oriented today and not agitated. She is back to her baseline - Patient is most likely delirious secondary to and been in unfamiliar environment for long period of time. Given she is severe pain and hypoxic today, which might have contributed to her symptoms - CT of head normal - CXR suggest of pulmonary effusion, started on IV Lasix 20mg - BMP and CBC was also repeated and normal 4. Mechanical Fall - It was mechanical fall secondary to generalized weakness. Patient didn't LOC or hit the floor. Weakness can be drug induced (was on glipizide) or could be due to malnutrition. - CT of head (12/07): There are age-related involutional changes noting moderate subcortical and periventricular microangiopathic change. Small chronic lacunar infarcts are present in the caudate heads. There is no hemorrhage, mass effect, or evidence of acute territorial ischemia by CT criteria. Hough-white matter is preserved. No extra-axial fluid collection is seen. 5. Stage IV sacral decubitus ulcer - Coccyx X-ray: There is an age-indeterminate deformity of the lower sacrum/ coccyx. While this may simply be secondary to prior trauma, osteomyelitis cannot be excluded. If osteomyelitis is a clinical concern, then a cross- sectional imaging study would be recommended in follow-up. - Initially ordered MRI to rule out osteomyelitis but since she was claustrophobic she refused MRI 3X. Dr. Cornejo spoke with her and discussion she agreed to do bone scan. - Bone scan of sacrum (12/11): Suggested of soft tissue infection, not suggest of osteomyelitis. - Will continue IV daptomycin 275mg and Zosyn 115ml - Per ID switch to PO Augmentin and Bactrim tomorrow - ID is consulted and continue to appreciate their recommendation - Wound care is consulted 6. Lower extremities cellulites - Patient had b/l lower extremities cellulites in the sitting of chronic edema. Patient might have chronic venous stasis ulcer which attributed to the cellulites. - Continue with IV daptomycin 275mg and Zosyn 115ml, plan to switch to PO tomorrow 7. UTI - UA is nitrate (+) - Patient is already on antibiotic that would cover UTI 8. DM type 2 - Glipizide on hold - On Novolog sliding scale - Glucose is 148 -->185 --->101 9. HTN - Lisinopril on hold - BP is stable (130/51) - Continue to monitor 10. Hx of chronic diastolic CHF/Afib - Continue digoxin 125 g daily, diltiazem ER 100mg daily - Continue ASA 81 mg - CXR suggested to pulmonary edema - Continue IV Lasix 20mg daily - Daily I/O and weight check 11. Gout - Continue 300mg 12. Electrolytes abnormalities - Potassium is replete (5.1) - Given phosphorous supplement, follow up with the lab - Mg is replete - Check BMP in am 13. DVT prophylaxis - SCDs 14. Code status - Full code History Resident Physician Supervision Note: I was present with Dr. Lowe during the history and exam. I discussed the case with the resident and agree with the findings and plan as documented in the note. Any exceptions or clarifications are listed here. Pt seen and examined at bedside. Presently, patient reports b/l LE pain has considerably improved. She reports no SOB, cough, fever, CP, lightheadedness, confusion, paresthesias, nausea, constipation. Family reports concern for ?abdominal distention and loose BM which she has had since starting potassium supplements. General Appearance: no apparent distress, thin Neck: non-tender, full range of motion, supple Respiratory: chest non-tender, no respiratory distress, decreased breath sounds (b/l bases, improved), rhonchi (b/l bases) Cardiovascular: normal peripheral pulses, regular rate, rhythm, no edema, no murmur Gastrointestinal: normal bowel sounds, non tender, soft, distended (mildly from previous) Assessment/Plan 86 y/o female h/o b/l LE venous stasis presents with weakness Abdominal distention - likely positional but will re-evaluation in AM - t/c US v. continued diuresis Diarrhea - likely 2/2 potassium repletion - C. diff testing today New onset behavioral change - concerning more for delirium - improving, nearly baseline Pleural effusion - -506cc as of this AM - lasix dose IV x 1 today, upright positioning and may contribute to delirium 2/2 agitation. Stage IV decubitus ulcer - bone scan neg for osteomyelitis of sacrum, soft tissue infxn likely - continue abx and wound care UTI - would narrow abx tomorrow to augmentin Lower extremity cellulitis - improving, narrow as above DMII - hold glipizide and DO NOT RESTART. ISS Gout - continue allopurinol A. fib/chronic diastolic and CHF - continue digoxin, diltiazem, ASA. lasix IV. hold lisinopril still until BP reliably elevated Hypokalemia - trend BMP s/p repletion An extra 30 minutes of time (total ~45 minutes) was spent face to face with patient and family discussing test results, prognosis and further concerns for recovery as well as reviewing treatment options and potential sequelae.
[2016-12-11 10:08] VITALS: O2SAT 95
[2016-12-11] MEDS: FUROSEMIDE INJ 20 MG in SYRINGE 0 ML IV SCH (10:32)
--- NOTE | 2016-12-11 12:47 | DIAGNOSTIC IMAGING REPORT ---
THREE-PHASE NUCLEAR BONE SCAN OF THE SACRUM AND PELVIS CLINICAL HISTORY: Sacral decubitus ulcer. Clinical concern for osteomyelitis. COMPARISON STUDY: Radiographs of the sacrum dated 12/07/2016. TECHNIQUE: Following the IV administration of 25.8 mCi of technetium 99m MDP, three-phase bone scan of the sacrum and pelvis was performed. Flow and blood pool phase imaging of the pelvis was performed in the anterior and posterior projections. Bone phase imaging of pelvis was performed at three hours in multiple obliquities. FINDINGS: Mild hyperemia is suggested in the region of the sacrum on the posterior flow and blood pool phase images. There is no abnormal bone phase activity identified in the sacrum or coccyx on the delayed images. Typically degenerative activity is present in the hips. No excreted tracer is identified in the bladder. IMPRESSION: 1. Hyperemia is suggested in the region of the sacrum on the flow and blood pool phase imaging. This would be consistent with a soft tissue infection. 2. There is no abnormal bone phase activity identified in the sacrum to suggest osteomyelitis. Electronically signed by: Bennett Cobb M.D. 12/11/2016 12:46 PM Dictated Date/Time: 12/11/2016 12:41 PM
[2016-12-11 14:49] VITALS: BP 115/49; PULSE 50; TEMP 36.4; O2SAT 90
[2016-12-11] MEDS ORDERED: SODIUM PHOSPHATE 3 MMOL/1 ML INFUSION IV STA (15:20)
--- NOTE | 2016-12-11 15:37 | Infectious Disease Progress Nt ---
Progress Note Date of Service Dec 11, 2016. Subjective Pt evaluation today including: conversation w/ patient, physical exam, chart review, lab review, review of studies, conversation w/ [employer] consultant, review of inpatient medication list Patient had bone scan today and no evidence of osteomyelitis was found. Remains afebrile. No new complaints. All Other Systems: Reviewed and Negative Medications Current Inpatient Medications Medications (Trade) Dose Ordered Sig/Kaylee Route Start Time Stop Time Status Last Admin Dose Admin Acetaminophen (Tylenol Tab) 650 mg Q4H PRN PO 12/07/16 14:00 01/06/17 13:59 12/08/16 12:34 650 MG Zolpidem Tartrate (Ambien Tab) 5 mg HSZ PRN PO 12/07/16 14:00 01/06/17 13:59 Allopurinol (Zyloprim Tab) 300 mg DAILY PO 12/08/16 09:00 01/07/17 08:59 12/11/16 09:08 300 MG Aspirin (Ecotrin Tab) 81 mg DAILY PO 12/08/16 09:00 01/07/17 08:59 12/11/16 08:04 81 MG Cholecalciferol (Vitamin D Tab) 2,000 inter.unit DAILY PO 12/08/16 09:00 01/07/17 08:59 12/11/16 09:07 2,000 INTER.UNIT Digoxin (Lanoxin Tab) 0.125 mg DAILY@1600 PO 12/07/16 16:00 01/06/17 15:59 12/10/16 16:30 0.125 MG Diltiazem HCl 120 mg 120 mg DAILY PO 12/08/16 09:00 01/07/17 08:59 12/11/16 08:05 120 MG Daptomycin/Sodium Chloride (Cubicin IV/Nss 50ml) 55.5 ml @ 100 mls/hr Q24H IV 12/07/16 17:00 12/17/16 16:59 12/10/16 16:36 100 MLS/HR Ondansetron HCl (Zofran Inj) 4 mg Q6H PRN IV 12/07/16 14:00 01/06/17 13:59 Insulin Aspart (novoLOG ASPART) SLIDING SCALE If C... ACHS SC 12/07/16 16:45 01/06/17 16:44 12/10/16 20:22 2 UNITS Glucose (Glucose 40% Gel) UD PRN PO 12/07/16 14:00 01/06/17 13:59 Glucose (Glucose Chew Tab) 1 tabs UD PRN PO 12/07/16 14:00 01/06/17 13:59 Dextrose (Dextrose 50% 50ML Syringe) 50 ml UD PRN IV 12/07/16 14:00 01/06/17 13:59 Glucagon (Glucagon Inj) 1 mg UD PRN SQ 12/07/16 14:00 01/06/17 13:59 Piperacillin Sod/ Tazobactam Sod (Consult) 1 ea UD PRN N/A 12/07/16 14:15 01/06/17 14:14 Enteral Nutritional Formula 1 can 1 can BIDM PO 12/08/16 17:00 01/07/17 16:59 12/10/16 16:36 1 CAN Furosemide 20 mg/ Syringe 2 ml @ 4 mls/min DAILY IV 12/11/16 09:00 01/10/17 08:59 12/11/16 10:32 4 MLS/MIN Piperacillin Sod/ Tazobactam Sod 3.375 gm/Dextrose 115 ml @ 28.75 mls/ hr Q8@0400,1200,2000 IV 12/11/16 20:00 12/17/16 23:59 Sodium Phosphate/ Sodium Chloride (Sodium Phosphate Inj/Nss 250ml) 255 ml @ 102 mls/hr TODAY@1545 IV 12/11/16 15:45 12/11/16 18:14 Objective Vital Signs Date Time Temp Pulse Resp B/P Pulse Ox O2 Delivery O2 Flow Rate FiO2 12/11/16 14:49 36.4 50 22 115/49 90 Nasal Cannula 3.0 12/11/16 10:08 95 Nasal Cannula 3.0 12/11/16 08:00 95 Nasal Cannula 3.0 12/11/16 07:49 37.0 57 20 134/55 95 Nasal Cannula 3.0 12/11/16 00:15 90 3.0 12/10/16 23:59 37.2 79 20 153/67 90 Nasal Cannula 3.0 12/10/16 16:30 Room Air 12/10/16 16:30 64 Physical Exam General Appearance: WD/WN, no apparent distress Eyes: normal inspection, sclerae normal ENT: normal ENT inspection, pharynx normal Neck: supple, no adenopathy, trachea midline Respiratory/Chest: lungs clear, normal breath sounds, no respiratory distress Cardiovascular: regular rate, rhythm, no gallop, no murmur Abdomen: normal bowel sounds, non tender, soft, no organomegaly Extremities: no calf tenderness, + inflammation, + swelling Neurologic/Psychiatric: alert, oriented x 3 Skin: normal color, + pertinent finding ( Sacral decubitus much improved, legs are better.) Laboratory Results Last 24 Hours Test 12/10/16 16:18 12/10/16 20:08 12/10/16 20:55 12/11/16 06:22 Bedside Glucose 148 mg/dl 185 mg/dl Phosphorus Level 3.0 mg/dl 2.4 mg/dl White Blood Count 12.91 K/uL Red Blood Count 2.64 M/uL Hemoglobin 8.6 g/dL Hematocrit 25.4 % Mean Corpuscular Volume 96.2 fL Mean Corpuscular Hemoglobin 32.6 pg Mean Corpuscular Hemoglobin Concent 33.9 g/dl RDW Standard Deviation 52.1 fL RDW Coefficient of Variation 14.9 % Platelet Count 154 K/uL Mean Platelet Volume 11.6 fL Sodium Level 142 mmol/L Potassium Level 3.4 mmol/L Chloride Level 109 mmol/L Carbon Dioxide Level 26 mmol/L Anion Gap 7.0 mmol/L Blood Urea Nitrogen 15 mg/dl Creatinine 0.64 mg/dl Est Creatinine Clear Calc Drug Dose 45.9 ml/min Estimated GFR () 93.0 Estimated GFR (Non- 80.2 BUN/Creatinine Ratio 23.3 Random Glucose 100 mg/dl Calcium Level 7.8 mg/dl Magnesium Level 1.9 mg/dl Test 12/11/16 07:36 12/11/16 10:47 Bedside Glucose 101 mg/dl 142 mg/dl Assessment and Plan Lower extremity cellulitis and infected sacral decubitus ulcer with abnormal x-ray but bone scan not consistent with osteomyelitis, and patient responding well to IV antibiotics. Patient will not require prolonged IV therapy, and think that likely can be transitioned in the next day or so to oral therapy with Augmentin and Bactrim.
[2016-12-11] MEDS ORDERED: SODIUM PHOSPHATE INJ 15 MMOL in SODIUM CHLORIDE 0.9% 250ML 250 ML IV SCH (15:45)
[2016-12-11] MEDS: DIGOXIN 0.125 MG TAB PO SCH (16:00)
[2016-12-11] MEDS: DAPTOmycin IV 275 MG in SODIUM CHLORIDE 0.9% 50ML 50 ML IV SCH (17:39)
[2016-12-12 00:14] VITALS: BP 133/61; PULSE 57; TEMP 37.2; O2SAT 100
[2016-12-12] MEDS: PIPERACILL/TAZOBAC IV 3.375 GM in DEXTROSE 5% 100ML 100 ML IV SCH (03:59)
[2016-12-12 07:10] LABS: HEMATOCRIT 27.8 % (37-47); MEAN CELL VOLUME 96.5 fL (80-100); MEAN CORPUSCULAR HEMOGLOBIN 32.3 pg (25-34); MEAN CORPUSCULAR HGB CONC 33.5 g/dl (32-36); MEAN PLATELET VOLUME 11.1 fL (7.4-10.4); PLATELET COUNT 191 K/uL (130-400); RED BLOOD COUNT 2.88 M/uL (4.2-5.4); WHITE BLOOD COUNT 12.29 K/uL (4.8-10.8)
[2016-12-12 07:30] VITALS: BP 129/49; PULSE 65; TEMP 37.1; O2SAT 92
[2016-12-12 07:33] LABS: BUN/CREATININE RATIO 25.5 (10-20); CREATININE 0.65 mg/dl (0.60-1.20); MAGNESIUM 1.8 mg/dl (1.8-2.4); POTASSIUM 3.3 mmol/L (3.5-5.1)
[2016-12-12 07:57] LABS: PHOSPHORUS 2.5 mg/dl (2.5-4.9)
[2016-12-12] MEDS: INSULIN ASPART 100 UNITS/ML 3 ML PEN SC SCH ×4 (09:09→21:12)
[2016-12-12] MEDS: CHOLECALCIFEROL 1000 INTER.UNIT TAB PO SCH (09:11)
[2016-12-12] MEDS: ALLOPURINOL 300 MG TAB PO SCH (09:11)
[2016-12-12] MEDS: DILTIAZEM HCL 120 MG EXT REL CAP PO SCH (09:11)
[2016-12-12] MEDS: ASPIRIN 81 MG ECTAB PO SCH (09:12)
[2016-12-12] MEDS: FUROSEMIDE INJ 20 MG in SYRINGE 0 ML IV SCH (09:13)
[2016-12-12] MEDS: BOOST GLUCOSE CONTROL PO SCH ×2 (09:21→17:30)
[2016-12-12] MEDS: SULFAMETHOXAZOLE/TRIMETHOPRIM DS 800/160MG TAB PO SCH ×2 (09:34→21:08)
[2016-12-12 15:55] VITALS: BP 120/54; PULSE 45; TEMP 36.5; O2SAT 99
[2016-12-12] MEDS: DIGOXIN 0.125 MG TAB PO SCH ×2 (16:00→18:28)
[2016-12-12 16:13] VITALS: PULSE 46
[2016-12-12] MEDS: AMOXICILLIN/CLAVULANATE TAB 875 MG TAB PO SCH (17:31)
[2016-12-12] MEDS ORDERED: FUROSEMIDE INJ 20 MG in SYRINGE 0 ML IV ONE (18:00)
[2016-12-12 18:20] VITALS: BP 125/59; PULSE 49; O2SAT 96
[2016-12-12] MEDS ORDERED: NURSING VERBAL MED ORDER ONE (18:30)
[2016-12-12] MEDS: POTASSIUM CHLR 10 MEQ / WTR 10 MEQ in PREMIXED WATER 100 ML IV SCH ×2 (18:31→21:08)
--- NOTE | 2016-12-12 18:32 | Family Medicine Progress Note ---
Progress Note Date of Service Dec 12, 2016. Subjective Pt evaluation today including: conversation w/ patient, conversation w/ family , physical exam, chart review, lab review Patient lying comfortably in bed with family around her. Patient denies any discomfort. She has a nasal cannula in situ and is breathing comfortably and saturating well on 2L. She feels that she has difficulty wheezing without the supplemental oxygen. She does however deny chest pain, dizziness/lightheadedness , or excessive fatigue without oxygen, and is not on oxygen at home. Patient is upset that through out her admission, she was only able to do physical therapy once. A second session was missed as she had to go down for imaging. Apologized for her disappointment but reinforced that SNF would be a great place for rehabilitation, and diverted her enthusiasm towards incentive spirometry. Went over correct technique of doing so. Patient continues to have multiple episodes of diarrhea in the last 24 hours. No abdominal pain or issue with diet or sleep. Constitutional: No chills, No fever Respiratory: + shortness of breath, No cough, No wheezing Cardiovascular: No chest pain Abdomen: + diarrhea, No nausea, No pain, No vomiting Female : No dysuria Skin: No itch, No rash Objective Vital Signs Date Time Temp Pulse Resp B/P Pulse Ox O2 Delivery O2 Flow Rate FiO2 12/12/16 18:28 49 12/12/16 18:20 49 125/59 96 Room Air 12/12/16 16:13 46 12/12/16 16:00 46 12/12/16 15:55 36.5 45 18 120/54 99 Nasal Cannula 2.0 12/12/16 15:40 Nasal Cannula 12/12/16 07:36 Nasal Cannula 2.0 12/12/16 07:30 37.1 65 18 129/49 92 Nasal Cannula 2.0 12/12/16 00:14 37.2 57 18 133/61 100 Room Air Physical Exam General Appearance: no apparent distress, + thin, + pertinent finding ENT: pharynx normal Neck: supple, no adenopathy Respiratory/Chest: normal breath sounds, no respiratory distress, no accessory muscle use, + decreased breath sounds (bibasilarly) Cardiovascular: regular rate, rhythm, no murmur, + bradycardia, + irregularly irregular Abdomen: normal bowel sounds, non tender, soft, + pertinent finding (umbilical hernia) Extremities: no calf tenderness, + pertinent finding (improved Cellulitis. Pruning skin of lower exremities) Neurologic/Psychiatric: alert, normal mood/affect, oriented x 3 Skin: normal color, warm/dry, no rash Laboratory Results Results Past 24 Hours Test 12/12/16 06:21 12/12/16 07:43 12/12/16 11:48 12/12/16 16:21 Range/Units White Blood Count 12.29 4.8-10.8 K/uL Red Blood Count 2.88 4.2-5.4 M/uL Hemoglobin 9.3 12.0-16.0 g/dL Hematocrit 27.8 37-47 % Mean Corpuscular Volume 96.5 80-100 fL Mean Corpuscular Hemoglobin 32.3 25-34 pg Mean Corpuscular Hemoglobin Concent 33.5 32-36 g/dl RDW Standard Deviation 52.6 36.4-46.3 fL RDW Coefficient of Variation 14.8 11.5-14.5 % Platelet Count 191 130-400 K/uL Mean Platelet Volume 11.1 7.4-10.4 fL Sodium Level 145 136-145 mmol/L Potassium Level 3.3 3.5-5.1 mmol/L Chloride Level 111 98-107 mmol/L Carbon Dioxide Level 26 21-32 mmol/L Anion Gap 8.0 3-11 mmol/L Blood Urea Nitrogen 17 7-18 mg/dl Creatinine 0.65 0.60-1.20 mg/dl Est Creatinine Clear Calc Drug Dose 45.2 ml/min Estimated GFR () 92.5 Estimated GFR (Non- 79.8 BUN/Creatinine Ratio 25.5 10-20 Random Glucose 121 70-99 mg/dl Calcium Level 8.0 8.5-10.1 mg/dl Phosphorus Level 2.5 2.5-4.9 mg/dl Magnesium Level 1.8 1.8-2.4 mg/dl Bedside Glucose 148 201 167 70-90 mg/dl Test 12/12/16 20:02 Range/Units Bedside Glucose 225 70-90 mg/dl Assessment and Plan 86 year old female with T2DM, HTN, CHF, Afib, and hx of CVA presented to the hospital s/p fall secondary to generalized weakness and found to have infected stage IV sacral decubitus ulcer. Mechanical Fall - It was mechanical fall secondary to generalized weakness. Patient didn't have LOC or hit the floor. - Etiologies considered include: drug-induced weakness, ex. due to glipizide vs. weakness secondary to malnutrition. - CT of head (12/07): There are age-related involutional changes noting moderate subcortical and periventricular microangiopathic change. Small chronic lacunar infarcts are present in the caudate heads. There is no hemorrhage, mass effect, or evidence of acute territorial ischemia by CT criteria. Hough-white matter is preserved. No extra-axial fluid collection is seen. Stage IV sacral decubitus ulcer - Coccyx X-ray: There is an age-indeterminate deformity of the lower sacrum/ coccyx. While this may simply be secondary to prior trauma, osteomyelitis cannot be excluded. If osteomyelitis is a clinical concern, then a cross- sectional imaging study would be recommended in follow-up. - ID consulted and patient started on IV daptomycin 275mg and Zosyn 115ml - Wound care is consulted - Initially ordered MRI to rule out osteomyelitis but since she was claustrophobic she refused MRI 3X. Dr. Cornejo spoke with her and discussion she agreed to do bone scan. - Bone scan of sacrum (12/11): Suggested of soft tissue infection, not suggestive of osteomyelitis. - Per ID switch to IV antibiotics switched to PO Augmentin 875mg BID and PO Bactrim 800/160mg q12h Acute hypoxia - Patient dyspneic with low O2 saturation, requiring oxygen supplementation - CXR on 12/10/16 showed evidence of congestive failure with cardiomegaly, bilateral pleural effusions, and an elevated interstitium. More focal airspace opacities within the right lung and left perihilar region, could represent either focal edema or a superimposed pneumonia - Lasix was change from PO to IV yesterday. Pulmonary exam is improved today. - Her mental status has improved, she is back her baseline - Continuing with Lasix. Physiologically saturating well on room air, discontinued O2. However, patient feels more comfortable with nasal canula in situ (without oxygen on) - Continue continuous pulse ox, Provide oxygen if sats fall below 90% - Encourage spirometry hourly if possible Delirium - New onset of behavioral change - Repeat CT showed no acute intracranial findings - Repeat CXR suggest of pulmonary effusion, started on IV Lasix 20mg and 2L supplemental oxygen - No significant lab abnormalities found - Most likely secondary to sundowning and been in unfamiliar environment for prolonged duration. Possibly exacerbated by severe pain and hypoxia - Symptoms improved, agitation resolved, patient alert and oriented. Family says she is back to her baseline Diarrhea - Most likely secondary to potassium supplementation causing osmotic effect - C.diff toxin negative - Patient claims it has slowed down - Consider cholestyramine or Imodium if frequency increases or patient experience worsened symptoms - Patient shows hypokalemia, replete with IV KCl 20mEq - Phosphrus and magnesium also trended, with repletion as necessary Lower extremities cellulites - Patient had bilateral lower extremity cellulitis in the setting of chronic edema. - Patient might have chronic venous stasis ulcer which attributed to the cellulitis. - Discontinued IV daptomycin and Zosyn - Started Augmentin and Bactrim, as per ID suggestion UTI - UA is nitrate (+) - Culture was contaminated, however, in view of current antibiotic coverage for cellulitis, UTI should be adequately treated. DM type 2 - Glipizide on hold - On Novolog sliding scale - Current glucose levels still elevated - May aim for better glycemic control with further changes in her medication tomorrow HTN - Lisinopril on hold in view of stable BP - Continue to monitor Weakness - Patient likely to benefit from ongoing OT/PT Hx of chronic diastolic CHF/Afib - Continue digoxin 125 g daily, diltiazem ER 100mg daily - Continue ASA 81 mg - CXR suggested to pulmonary edema - Continue IV Lasix 20mg daily - Daily I/O and weight check Gout - Continue 300mg DVT prophylaxis - SCDs Code status - Full code Continued [facility] stay due to: ambulation difficulties, home environment unsafe for pt Resident Involvement: Resident Care Provided Care Provided: Adult Hospital Medicine History Resident Physician Supervision Note: I was present with Dr. Galarza during the history and exam. I discussed the case with the resident and agree with the findings and plan as documented in the note. Any exceptions or clarifications are listed here. Pt seen and examined at bedside. No acute events overnight. O2 saturation frequently fluctuating but immediately returns to 94% RA when pulse ox is adjusted appropriately. Feels SOB intermittently but without drop in SpO2. Diarrhea has improved per family. Mental status at baseline per family. Reports no pain in the LE, chest pain, palpitations, lightheadedness, fatigue, nausea, bloating, n/v. General Appearance: no apparent distress, thin Respiratory: chest non-tender, lungs clear, normal breath sounds, no respiratory distress Cardiovascular: normal peripheral pulses, regular rate, rhythm, no murmur, other (trace pitting edema of the b/l LE improved from previous) Gastrointestinal: normal bowel sounds, non tender, soft, no organomegaly Assessment/Plan 86 y/o female h/o b/l LE venous stasis presents with weakness Pleural effusion - continue daily lasix w/ additional lasix 20mg IV x 1 today, upright positioning and may contribute to delirium 2/2 agitation - keep checking the pulse ox positioning A. fib/chronic diastolic and CHF w/ bradycardia - continue digoxin, hold diltiazem, ASA. lasix IV. hold lisinopril still until BP reliably elevated Hypokalemia - trend BMP Diarrhea - likely 2/2 potassium repletion - C. diff testing negative. Improving Delirium - resolved, presently at baseline AAOx3 Lower ext cellulitis, stage IV decubitus ulcer, UTI - bone scan neg for osteomyelitis of sacrum, soft tissue infxn likely - narrow to augmentin and bactrim PO DMII - hold glipizide and DO NOT RESTART. ISS Gout - continue allopurinol
[2016-12-12] MEDS ORDERED: DILTIAZEM HCL 30 MG TAB PO SCH (21:00)
[2016-12-13 00:04] VITALS: BP 137/89; PULSE 48; TEMP 36.6; O2SAT 90
[2016-12-13 06:31] LABS: HEMATOCRIT 27.8 % (37-47); MEAN CELL VOLUME 97.5 fL (80-100); MEAN CORPUSCULAR HEMOGLOBIN 32.3 pg (25-34); MEAN CORPUSCULAR HGB CONC 33.1 g/dl (32-36); PLATELET COUNT 217 K/uL (130-400); RED BLOOD COUNT 2.85 M/uL (4.2-5.4); WHITE BLOOD COUNT 10.22 K/uL (4.8-10.8)
[2016-12-13 06:59] VITALS: BP 129/60; PULSE 44; TEMP 36.3; O2SAT 99
[2016-12-13 07:02] LABS: BUN/CREATININE RATIO 34.1 (10-20); CALCIUM 8.6 mg/dl (8.5-10.1); CREATININE 0.59 mg/dl (0.60-1.20); POTASSIUM 3.8 mmol/L (3.5-5.1)
[2016-12-13] MEDS: BOOST GLUCOSE CONTROL PO SCH ×2 (08:00→17:46)
[2016-12-13] MEDS: INSULIN ASPART 100 UNITS/ML 3 ML PEN SC SCH ×4 (08:13→20:48)
[2016-12-13] MEDS: CHOLECALCIFEROL 1000 INTER.UNIT TAB PO SCH (08:14)
[2016-12-13] MEDS: ASPIRIN 81 MG ECTAB PO SCH (08:15)
[2016-12-13] MEDS: ALLOPURINOL 300 MG TAB PO SCH (08:15)
[2016-12-13] MEDS: SULFAMETHOXAZOLE/TRIMETHOPRIM DS 800/160MG TAB PO SCH ×2 (08:15→20:19)
[2016-12-13] MEDS: AMOXICILLIN/CLAVULANATE TAB 875 MG TAB PO SCH ×2 (08:16→18:17)
[2016-12-13] MEDS: FUROSEMIDE INJ 20 MG in SYRINGE 0 ML IV SCH (08:23)
[2016-12-13] MEDS ORDERED: DILTIAZEM HCL 30 MG TAB PO SCH (09:00)
--- NOTE | 2016-12-13 09:32 | DIAGNOSTIC IMAGING REPORT ---
CHEST 2 VIEWS ROUTINE CLINICAL HISTORY: pleural effusion dyspnea COMPARISON STUDY: 12/10/2016 FINDINGS: Unchanging parenchymal infiltrative change and effusion right lung. Unchanging consolidative change medial left base. Stable mild cardiomegaly. IMPRESSION: Unchanged study radiographically from the prior exam Electronically signed by: Jordan Grey M.D. 12/13/2016 9:31 AM Dictated Date/Time: 12/13/2016 9:30 AM
[2016-12-13] MEDS ORDERED: FUROSEMIDE INJ 20 MG in SYRINGE 0 ML IV ONE (13:15)
--- NOTE | 2016-12-13 14:55 | Family Medicine Progress Note ---
Progress Note Date of Service Dec 13, 2016. Subjective Pt evaluation today including: conversation w/ patient, physical exam, chart review, lab review Patient lying comfortably in bed. She denies any discomfort. She has a nasal cannula in situ and is breathing comfortably and saturating well on 1L. She is not insistent on keeping NC on, but does prefer it. She does however deny chest pain, dizziness/lightheadedness, or excessive fatigue. Patient continues to be upset about limited physical therapy. Patient very motivated and continues to practice incentive spirometry. No abdominal pain or issue with diet or sleep. Discussion with nurse to help patient sit out of bed if no PT available to. Nurse also says diarrhea improved to occasional streaking. Constitutional: No chills, No fever Respiratory: No cough, No shortness of breath, No wheezing Cardiovascular: No chest pain, No palpitations Abdomen: No constipation, No diarrhea, No nausea, No pain, No vomiting Female : No dysuria Objective Vital Signs Date Time Temp Pulse Resp B/P Pulse Ox O2 Delivery O2 Flow Rate FiO2 12/13/16 16:00 Nasal Cannula 2.0 12/13/16 15:18 36.1 53 18 148/50 93 Room Air 12/13/16 07:35 Nasal Cannula 2.0 12/13/16 06:59 36.3 44 16 129/60 99 2.0 12/13/16 00:04 36.6 48 16 137/89 90 2.0 12/13/16 00:00 Room Air 12/12/16 20:00 Room Air 12/12/16 18:28 49 12/12/16 18:20 49 125/59 96 Room Air Physical Exam General Appearance: no apparent distress, + thin Neck: supple, no adenopathy Respiratory/Chest: no respiratory distress, no accessory muscle use, + decreased breath sounds, + rales Cardiovascular: no murmur, + bradycardia, + irregularly irregular Abdomen: normal bowel sounds, non tender, soft, no organomegaly Extremities: no calf tenderness, + pedal edema Neurologic/Psychiatric: alert, normal mood/affect, oriented x 3 Skin: normal color, warm/dry, no rash Laboratory Results Results Past 24 Hours Test 12/12/16 20:02 12/13/16 05:14 12/13/16 07:36 12/13/16 11:19 Range/Units Bedside Glucose 225 139 264 70-90 mg/dl White Blood Count 10.22 4.8-10.8 K/uL Red Blood Count 2.85 4.2-5.4 M/uL Hemoglobin 9.2 12.0-16.0 g/dL Hematocrit 27.8 37-47 % Mean Corpuscular Volume 97.5 80-100 fL Mean Corpuscular Hemoglobin 32.3 25-34 pg Mean Corpuscular Hemoglobin Concent 33.1 32-36 g/dl RDW Standard Deviation 53.7 36.4-46.3 fL RDW Coefficient of Variation 15.0 11.5-14.5 % Platelet Count 217 130-400 K/uL Mean Platelet Volume 11.0 7.4-10.4 fL Sodium Level 144 136-145 mmol/L Potassium Level 3.8 3.5-5.1 mmol/L Chloride Level 110 98-107 mmol/L Carbon Dioxide Level 27 21-32 mmol/L Anion Gap 7.0 3-11 mmol/L Blood Urea Nitrogen 20 7-18 mg/dl Creatinine 0.59 0.60-1.20 mg/dl Est Creatinine Clear Calc Drug Dose 49.8 ml/min Estimated GFR () 95.5 Estimated GFR (Non- 82.4 BUN/Creatinine Ratio 34.1 10-20 Random Glucose 132 70-99 mg/dl Calcium Level 8.6 8.5-10.1 mg/dl Test 12/13/16 16:31 Range/Units Bedside Glucose 165 70-90 mg/dl Assessment and Plan 86 year old female with T2DM, HTN, CHF, Afib, and hx of CVA presented to the hospital s/p fall secondary to generalized weakness and found to have infected sacral decubitus ulcer, UTI, LE Cellulitis. Treated with antibiotics. Acute hypoxemia, likely secondary to pleural effusion from dCHF, being diuresed. Bradycardia Discontinued ER diltiazem with plans to switch to regular diltiazem tablets, which were held today in view of persistent terrell. Patient asymptomatic. Hemodynamically stable and continues to saturate well on room air. EKG shows a.fib with slow ventricular rate, largely unchanged from EKG from Nov 2015. - Hold diltiazem unless HR increases Hx of chronic diastolic CHF/Afib Previous control with digoxin and diltiazem ER 100mg daily. Diltiazem held in view of bradycardia. Repeat CXR continues to show significant vascular congestion. Daily lasix with assessment of additional bolus, with Daily I/O and weight check, plus assessment of hydration status. - Continue ASA 81 mg - Continue IV Lasix 20mg daily +/- bolus assessed daily, with monitoring of kidney function and repletion of electrolytes as necessary. Acute hypoxia associated with delirium Patient becomes acutely dyspneic with low O2 saturation, requiring oxygen supplementation. CXR shows evidence of congestive failure with cardiomegaly and bilateral pleural effusions. Aggressive diuresis commenced. Saturating well on room air, discontinued O2. However, patient feels more comfortable with nasal canula in situ - Continue diuresis with Lasix + with ongoing assessment of need for bolus. - Continue continuous pulse ox (forehead measurement consistently more accurate ). Provide oxygen if sats fall below 90% - Encourage spirometry hourly if possible Delirium New onset of behavioral change, likely secondary to ing and been in unfamiliar environment for prolonged duration. Possibly exacerbated by severe pain and hypoxia. CT showed no acute intracranial findings. No significant lab abnormalities found. CXR suggest of pulmonary effusion and patient started on IV Lasix 20mg and 2L supplemental oxygen. Symptoms improved, agitation resolved , patient alert and oriented. Family says she is back to her baseline. - Resolved DM type 2 Glipizide on hold. Current glucose levels still elevated - Continue to monitor Diarrhea Likely secondary to potassium supplementation causing osmotic effect. C.diff toxin negative. Hypokalemia repleted with IV KCl 20mEq, as was phosphorus and magnesium. - Resolved Mechanical Fall Patient didn't have LOC or hit the floor. Head CT showed age-related changes, small chronic lacunar infarcts but no hemorrhage, mass effect, or evidence of acute territorial ischemia by CT criteria. Hough-white matter is preserved. No extra-axial fluid collection is seen. Likely exacerbated by weakness from infection. Patient very motivated for rehabilitation. - Patient likely to benefit from ongoing OT/PT - Patient and family want discharge to SNF with increased rehabilitation. Sacral decubitus ulcer Coccyx x-ray indeterminate for osteomyelitis. ID consulted and recommendation appreciated: empirically started on IV daptomycin and Zosyn. Wound care is consulted. Patient provided with air mattress to relieve pressure. Sacral bone scan suggestive of soft tissue infection only. Per ID switch to IV antibiotics switched to Augmentin and Bactrim. - Continue PO Augmentin 875mg BID and PO Bactrim 800/160mg q12h Lower extremities cellulites Occurrence in the setting of chronic edema and chronic venous stasis - In view of current antibiotic coverage for Sacral cellulitis, leg cellulitis should be adequately treated. UTI UA is nitrate (+), but culture was contaminated - In view of current antibiotic coverage for sacral cellulitis, UTI should be adequately treated. HTN - Lisinopril on hold in view of stable BP .Continue to monitor Gout - Continue 300mg DVT prophylaxis - SCDs Code status - Full code Continued [facility] stay due to: home environment unsafe for pt Resident Involvement: Resident Care Provided Care Provided: Adult [facility] Medicine History Resident Physician Supervision Note: I was present with Dr. Galarza during the history and exam. I discussed the case with the resident and agree with the findings and plan as documented in the note. Any exceptions or clarifications are listed here. Pt seen and examined at bedside. Presently, states that her shortness of breath has resolved but occasionally returns and she 'feels better with oxygen' though her O2 sat is fine on room air. Her lower extremity pain has resolved. Her diarrhea is nearly resolved. She has a mild nonproductive cough which is improved from previous. She reports no fever, lightheadedness, nausea, abd pain. General Appearance: no apparent distress, cachetic Respiratory: chest non-tender, no respiratory distress, no accessory muscle use , rales (b/l bases), rhonchi Cardiovascular: normal peripheral pulses, regular rate, rhythm, no edema, no murmur Gastrointestinal: normal bowel sounds, non tender, soft, no organomegaly Extremities: pedal edema (1+ w/ significant venous stasis changes), other ( minimal erythema, no TTP) Neurologic/Psychiatric: alert, normal mood/affect, oriented x 3 Assessment/Plan 86 y/o female h/o b/l LE venous stasis presented with weakness 2/2 UTI, cellulitis, wound infection now w/ effusion and bradycardia Pleural effusion - repeat CXR shows considerable vascular congestion - bolus addtl lasix 20mg IV, upright positioning when able - keep checking the pulse ox positioning (most reliable on forehead) Bradycardia in the setting of A. fib/chronic diastolic and CHF - EKG shows bradycardia w/ a-fib - continue digoxin, hold diltiazem, continue ASA. hold lisinopril still until BP reliably elevated Diarrhea - likely 2/2 potassium repletion - C. diff testing negative. Improving Lower ext cellulitis, stage IV decubitus ulcer, UTI - bone scan neg for osteomyelitis of sacrum, soft tissue infxn likely - narrow to augmentin and bactrim PO DMII - hold glipizide and DO NOT RESTART. ISS Gout - continue allopurinol Dispo: Continued diuresis, PT/OT eval for SNF placement
[2016-12-13 15:18] VITALS: BP 148/50; PULSE 53; TEMP 36.1; O2SAT 93
[2016-12-13 20:24] VITALS: BP 149/67; PULSE 69
[2016-12-14] VITALS: O2SAT 93
[2016-12-14 00:13] VITALS: BP 162/64; PULSE 69; TEMP 36.8; O2SAT 91
--- NOTE | 2016-12-14 07:16 | Family Medicine Progress Note ---
Progress Note Date of Service Dec 14, 2016. Subjective Pt evaluation today including: conversation w/ patient, physical exam, chart review, lab review The patient was seen and examined at bedside. No acute overnight events. Patient is resting comfortably in bed. Has a pleasant demeanor. Denies having any pain. Eating and urinating well. Plan of care was described to the patient and all questions were answered. Constitutional: No chills, No fever, No sweats, No weight loss Respiratory: No cough, No shortness of breath, No sputum, No wheezing Cardiovascular: No chest pain Objective Physical Exam General Appearance: WD/WN, no apparent distress, + thin Respiratory/Chest: chest non-tender, lungs clear, normal breath sounds, no respiratory distress Cardiovascular: no edema, no gallop, no JVD, no murmur, + irregularly irregular Abdomen: normal bowel sounds, non tender, soft, no organomegaly Extremities: normal range of motion, + pertinent finding (Pt is wearing SCDs, minor wounds on LE bilaterally. ) Neurologic/Psychiatric: alert, normal mood/affect, oriented x 3 Assessment and Plan 86 year old female with DM2, HTN, CHF, Afib, and hx of CVA presented to the hospital s/p near fall secondary to generalized weakness and found to have infected sacral decubitus ulcer, UTI, LE Cellulitis. Treated with antibiotics. Acute hypoxemia, likely secondary to pleural effusion from dCHF, being diuresed. Acute hypoxia associated with delirium Patient becomes acutely dyspneic with low O2 saturation, requiring oxygen supplementation. CXR shows evidence of congestive failure with cardiomegaly and bilateral pleural effusions. Saturating well on room air, discontinued O2. However, patient feels more comfortable with nasal canula in situ. - c/w Lasix 20mg IV daily + with ongoing assessment of need for bolus. - c/w continuous pulse ox (forehead measurement consistently more accurate). Provide oxygen if sats fall below 90% - Encourage spirometry hourly if possible. - Speech swallow eval for possible aspiration. Hx of chronic diastolic CHF/Afib - Previous control with digoxin and diltiazem ER 100mg daily. Diltiazem was held in view of bradycardia. - CXR on 12/13/16 continues to show significant vascular congestion. - Continue ASA 81 mg - Continue IV Lasix 20mg daily +/- bolus assessed daily, with monitoring of kidney function and repletion of electrolytes as necessary. - Anticoagulation likely held due to patient being a fall risk, will continue to hold. - Consider restarting diltiazem if patient experiences A fib with RVR. Delirium (resolved) New onset of behavioral change, likely secondary to sundowning and been in unfamiliar environment for prolonged duration. - Family says she is back to her baseline. - Continue to monitor. DM2 Glipizide on hold. Receiving Insulin Novolog. - Continue to monitor Diarrhea like 2/2 potassium repletion (resolved) - Potassium 4.0 today. C.diff toxin negative. - d/c IV fluids with potassium repletion today. Near Fall Patient didn't have LOC or hit the floor. Was caught by family member. Head CT showed age-related changes. - Patient likely to benefit from ongoing OT/PT Sacral decubitus ulcer negative for Osteomyelitis - Coccyx x-ray indeterminate for osteomyelitis. ID and Wound care is consulted. - Sacral bone scan suggestive of soft tissue infection only. - c/w with air mattress to relieve pressure. -c/w PO Augmentin 875mg BID and PO Bactrim 800/160mg q12h Lower extremities cellulitis Occurrence in the setting of chronic edema and chronic venous stasis - In view of current antibiotic coverage for Sacral cellulitis, leg cellulitis should be adequately treated. UTI - UA is nitrate (+), but culture was contaminated - In view of current antibiotic coverage for sacral cellulitis, UTI should be adequately treated. HTN - Lisinopril on hold in view of stable BP .Continue to monitor Gout - Continue 300mg Allopurinol daily. DVT prophylaxis - SCDs Dispo- Full code, was living at home, pt and family want discharge to SNF with increased rehabilitation. - Consider conversation with daughter about code status, daughter is a business line controller and not present in the afternoons. Resident Involvement: Resident Care Provided Care Provided: Adult Hospital Medicine Reviewed: Pt Seen/Exam by Me Constitutional: denies: fever Respiratory: positive: cough, negative: short of breath Cardiovascular: denies chest pain Gastrointestinal/Abdominal: negative: abdominal pain General Appearance: no apparent distress Respiratory: no respiratory distress, decreased breath sounds, other (coughing through eating. sitting hunched) Cardiovascular: irregularly irregular Neurologic/Psychiatric: alert, oriented x 3 Skin Characteristics: warm/dry Assessment/Plan I have reviewed the medical record and performed a history and physical examination of this patient today. I have discussed the case with Dr. Cesar. The above note reflects my findings, conclusions, and recommendations Cough with eating- consult speech for swallowing eval await rehab placement.
[2016-12-14 07:40] VITALS: BP 152/60; PULSE 72; TEMP 36.4; O2SAT 97
[2016-12-14 08:11] VITALS: O2SAT 97
[2016-12-14] MEDS: ASPIRIN 81 MG ECTAB PO SCH (08:31)
[2016-12-14] MEDS: SULFAMETHOXAZOLE/TRIMETHOPRIM DS 800/160MG TAB PO SCH ×2 (08:31→22:31)
[2016-12-14] MEDS: AMOXICILLIN/CLAVULANATE TAB 875 MG TAB PO SCH ×2 (08:32→17:42)
[2016-12-14] MEDS: ALLOPURINOL 300 MG TAB PO SCH (08:32)
[2016-12-14] MEDS: CHOLECALCIFEROL 1000 INTER.UNIT TAB PO SCH (08:32)
[2016-12-14] MEDS: FUROSEMIDE INJ 20 MG in SYRINGE 0 ML IV SCH (08:33)
[2016-12-14] MEDS: INSULIN ASPART 100 UNITS/ML 3 ML PEN SC SCH ×4 (08:34→22:32)
[2016-12-14] MEDS: BOOST GLUCOSE CONTROL PO SCH ×2 (08:42→17:46)
[2016-12-14 08:43] LABS: BASO % 0.4 %; BASO ABS # 0.03 K/uL (0-0.2); COMPLETE YES; EOS % 2.5 %; IG% 0.4 %; LYMPH % 18.5 %; LYMPH ABS # 1.35 K/uL (1.2-3.4); MEAN CELL VOLUME 98.6 fL (80-100); MEAN CORPUSCULAR HEMOGLOBIN 32.7 pg (25-34); MEAN CORPUSCULAR HGB CONC 33.1 g/dl (32-36); MEAN PLATELET VOLUME 10.2 fL (7.4-10.4); MONO % 10.3 %; NEUT % 67.9 %; PLATELET COUNT 241 K/uL (130-400); RED BLOOD COUNT 2.94 M/uL (4.2-5.4); WHITE BLOOD COUNT 7.31 K/uL (4.8-10.8)
[2016-12-14 09:11] LABS: BUN/CREATININE RATIO 27.6 (10-20); CREATININE 0.72 mg/dl (0.60-1.20); MAGNESIUM 1.9 mg/dl (1.8-2.4); PHOSPHORUS 2.3 mg/dl (2.5-4.9)
--- NOTE | 2016-12-14 11:55 | Infectious Disease Progress Nt ---
Progress Note Date of Service Dec 14, 2016. Subjective Pt evaluation today including: conversation w/ patient, physical exam, chart review, lab review, review of studies, conversation w/ [employer] consultant, review of inpatient medication list Patient offering no new complaints today. Appears to be tolerating antibiotics. Remains afebrile. All Other Systems: Reviewed and Negative Medications Current Inpatient Medications Medications (Trade) Dose Ordered Sig/Kaylee Route Start Time Stop Time Status Last Admin Dose Admin Acetaminophen (Tylenol Tab) 650 mg Q4H PRN PO 12/07/16 14:00 01/06/17 13:59 12/08/16 12:34 650 MG Allopurinol (Zyloprim Tab) 300 mg DAILY PO 12/08/16 09:00 01/07/17 08:59 12/14/16 08:32 300 MG Aspirin (Ecotrin Tab) 81 mg DAILY PO 12/08/16 09:00 01/07/17 08:59 12/14/16 08:31 81 MG Cholecalciferol (Vitamin D Tab) 2,000 inter.unit DAILY PO 12/08/16 09:00 01/07/17 08:59 12/14/16 08:32 2,000 INTER.UNIT Digoxin (Lanoxin Tab) 0.125 mg DAILY@1600 PO 12/07/16 16:00 01/06/17 15:59 12/12/16 18:28 0.125 MG Ondansetron HCl (Zofran Inj) 4 mg Q6H PRN IV 12/07/16 14:00 01/06/17 13:59 Insulin Aspart (novoLOG ASPART) SLIDING SCALE If C... ACHS SC 12/07/16 16:45 01/06/17 16:44 12/13/16 17:51 1 UNITS Glucose (Glucose 40% Gel) UD PRN PO 12/07/16 14:00 01/06/17 13:59 Glucose (Glucose Chew Tab) 1 tabs UD PRN PO 12/07/16 14:00 01/06/17 13:59 Dextrose (Dextrose 50% 50ML Syringe) 50 ml UD PRN IV 12/07/16 14:00 01/06/17 13:59 Glucagon (Glucagon Inj) 1 mg UD PRN SQ 12/07/16 14:00 01/06/17 13:59 Enteral Nutritional Formula 1 can 1 can BIDM PO 12/08/16 17:00 01/07/17 16:59 12/13/16 17:46 1 CAN Furosemide/Syringe (Lasix Inj/ Syringe) 2 ml @ 4 mls/min DAILY IV 12/11/16 09:00 01/10/17 08:59 12/14/16 08:33 4 MLS/MIN Amoxicillin/ Clavulanate Potassium (Augmentin Tab) 875 mg BIDM PO 12/12/16 17:00 12/17/16 16:59 12/14/16 08:32 875 MG Trimethoprim/ Sulfamethoxazole (Septra Ds 800/ 160MG Tab) 1 tab Q12 PO 12/12/16 09:00 12/17/16 08:59 12/14/16 08:31 1 TAB Objective Vital Signs Date Time Temp Pulse Resp B/P Pulse Ox O2 Delivery O2 Flow Rate FiO2 12/14/16 08:11 97 Nasal Cannula 5.0 12/14/16 07:45 Nasal Cannula 2.0 12/14/16 07:40 36.4 72 16 152/60 97 Nasal Cannula 2.0 12/14/16 00:13 36.8 69 18 162/64 91 2.0 12/14/16 00:00 93 Nasal Cannula 2.0 12/13/16 20:24 69 149/67 12/13/16 16:00 Nasal Cannula 2.0 12/13/16 15:18 36.1 53 18 148/50 93 Room Air Physical Exam General Appearance: WD/WN, no apparent distress Eyes: normal inspection, sclerae normal ENT: normal ENT inspection, pharynx normal Neck: supple, no adenopathy, trachea midline Respiratory/Chest: chest non-tender, lungs clear, normal breath sounds, no respiratory distress Cardiovascular: regular rate, rhythm, no gallop, no murmur Abdomen: normal bowel sounds, non tender, soft, no organomegaly Extremities: no calf tenderness, + swelling Neurologic/Psychiatric: alert, oriented x 3 Skin: normal color, no rash, + pertinent finding ( Erythema of legs improved, sacral decubitus also improving) Laboratory Results Last 24 Hours Test 12/13/16 16:31 12/13/16 19:47 12/14/16 07:30 12/14/16 08:13 Bedside Glucose 165 mg/dl 130 mg/dl 141 mg/dl White Blood Count 7.31 K/uL Red Blood Count 2.94 M/uL Hemoglobin 9.6 g/dL Hematocrit 29.0 % Mean Corpuscular Volume 98.6 fL Mean Corpuscular Hemoglobin 32.7 pg Mean Corpuscular Hemoglobin Concent 33.1 g/dl Platelet Count 241 K/uL Mean Platelet Volume 10.2 fL Neutrophils (%) (Auto) 67.9 % Lymphocytes (%) (Auto) 18.5 % Monocytes (%) (Auto) 10.3 % Eosinophils (%) (Auto) 2.5 % Basophils (%) (Auto) 0.4 % Neutrophils # (Auto) 4.97 K/uL Lymphocytes # (Auto) 1.35 K/uL Monocytes # (Auto) 0.75 K/uL Eosinophils # (Auto) 0.18 K/uL Basophils # (Auto) 0.03 K/uL RDW Standard Deviation 53.1 fL RDW Coefficient of Variation 14.8 % Immature Granulocyte % (Auto) 0.4 % Immature Granulocyte # (Auto) 0.03 K/uL Sodium Level 146 mmol/L Potassium Level 4.0 mmol/L Chloride Level 109 mmol/L Carbon Dioxide Level 29 mmol/L Anion Gap 8.0 mmol/L Blood Urea Nitrogen 20 mg/dl Creatinine 0.72 mg/dl Est Creatinine Clear Calc Drug Dose 40.8 ml/min Estimated GFR () 87.3 Estimated GFR (Non- 75.3 BUN/Creatinine Ratio 27.6 Random Glucose 123 mg/dl Calcium Level 9.0 mg/dl Phosphorus Level 2.3 mg/dl Magnesium Level 1.9 mg/dl Test 12/14/16 11:22 Bedside Glucose 169 mg/dl Assessment and Plan Lower extremity cellulitis and infected sacral decubitus ulcer with abnormal x-ray but bone scan not consistent with osteomyelitis, and patient responding well to IV antibiotics. Patient will not require prolonged IV therapy, and transitioned to oral therapy with Augmentin and Bactrim. Likely 2-4 weeks depending on response.
[2016-12-14 15:04] VITALS: BP 140/60; PULSE 61; TEMP 36.3; O2SAT 96
[2016-12-14] MEDS: DIGOXIN 0.125 MG TAB PO SCH (16:11)
[2016-12-15 00:50] VITALS: BP 153/70; PULSE 67; TEMP 36.7; O2SAT 91
[2016-12-15] MEDS: INSULIN ASPART 100 UNITS/ML 3 ML PEN SC SCH ×3 (06:30→16:13)
[2016-12-15] MEDS: BOOST GLUCOSE CONTROL PO SCH ×2 (08:00→17:00)
[2016-12-15 08:19] LABS: BASO % 0.2 %; EOS % 2.5 %; HEMATOCRIT 27.9 % (37-47); IG% 0.2 %; LYMPH % 29.9 %; LYMPH ABS # 2.63 K/uL (1.2-3.4); MEAN CELL VOLUME 97.9 fL (80-100); MEAN CORPUSCULAR HEMOGLOBIN 32.3 pg (25-34); MEAN PLATELET VOLUME 10.2 fL (7.4-10.4); MONO % 7.7 %; NEUT % 59.5 %; PLATELET COUNT 247 K/uL (130-400); RED BLOOD COUNT 2.85 M/uL (4.2-5.4)
[2016-12-15 08:20] LABS: BASO ABS # 0.02 K/uL (0-0.2); COMPLETE YES
[2016-12-15 08:29] LABS: BUN/CREATININE RATIO 29.1 (10-20); CALCIUM 9.1 mg/dl (8.5-10.1); CREATININE 0.66 mg/dl (0.60-1.20); POTASSIUM 4.3 mmol/L (3.5-5.1)
[2016-12-15 08:36] VITALS: BP 164/80; PULSE 71; TEMP 36.4
[2016-12-15] MEDS: ASPIRIN 81 MG ECTAB PO SCH (09:36)
[2016-12-15] MEDS: SULFAMETHOXAZOLE/TRIMETHOPRIM DS 800/160MG TAB PO SCH (09:36)
[2016-12-15] MEDS: ALLOPURINOL 300 MG TAB PO SCH (09:36)
[2016-12-15] MEDS: CHOLECALCIFEROL 1000 INTER.UNIT TAB PO SCH (09:37)
[2016-12-15] MEDS: AMOXICILLIN/CLAVULANATE TAB 875 MG TAB PO SCH ×2 (09:39→17:00)
[2016-12-15] MEDS: FUROSEMIDE INJ 20 MG in SYRINGE 0 ML IV SCH (09:39)
--- NOTE | 2016-12-15 13:32 | Family Medicine Progress Note ---
Progress Note Date of Service Dec 15, 2016. Subjective Pt evaluation today including: conversation w/ patient, physical exam, chart review, lab review The patient was seen and examined at bedside. No acute overnight events. Patient is resting comfortably and has no complaints. Patient is resting comfortably in bed. Denies having any pain. Eating and urinating well. Plan of care was described to the patient and all questions were answered. Objective Physical Exam General Appearance: WD/WN, no apparent distress, + thin Respiratory/Chest: chest non-tender, lungs clear, normal breath sounds, no respiratory distress, no accessory muscle use Cardiovascular: regular rate, rhythm, no edema, no gallop, no JVD, no murmur Abdomen: normal bowel sounds, non tender, soft, no organomegaly Extremities: + pertinent finding (Patient has chronic vascular discoloration of her lower extremities. ) Neurologic/Psychiatric: no motor/sensory deficits, alert, normal mood/affect, oriented x 3 Assessment and Plan 86 year old female with DM2, HTN, CHF, Afib, and hx of CVA presented to the hospital s/p near fall secondary to generalized weakness and found to have infected sacral decubitus ulcer, UTI, LE Cellulitis. Treated with antibiotics. Acute hypoxemia, likely secondary to pleural effusion from dCHF, being diuresed. Acute hypoxia associated with delirium Patient becomes acutely dyspneic with low O2 saturation, requiring oxygen supplementation. CXR shows evidence of congestive failure with cardiomegaly and bilateral pleural effusions. Saturating well on room air, discontinued O2. However, patient feels more comfortable with nasal canula in situ. - c/w Lasix 20mg IV daily + with ongoing assessment of need for bolus. - c/w continuous pulse ox (forehead measurement consistently more accurate). Provide oxygen if sats fall below 90% - Encourage spirometry hourly if possible. - Speech swallow eval for possible aspiration. Hx of chronic diastolic CHF/Afib - Pt has no complaints at present of chest pain or physical symptoms of heart failure. - Previous control with digoxin and diltiazem ER 100mg daily. Diltiazem was held in view of bradycardia. - CXR on 12/13/16 continues to show significant vascular congestion. - Continue ASA 81 mg - Continue IV Lasix 20mg daily +/- bolus assessed daily, with monitoring of kidney function and repletion of electrolytes as necessary. - Anticoagulation likely held due to patient being a fall risk, will continue to hold. - Consider restarting diltiazem if patient experiences A fib with RVR. Delirium (resolved) - Family says she is back to her baseline. - Continue to monitor. DM2 Glipizide on hold. Receiving Insulin Novolog. - Continue to monitor Diarrhea like 2/2 potassium repletion (resolved) - Potassium 4.0 today. C.diff toxin negative. - d/c IV fluids with potassium repletion today. Near Fall Patient didn't have LOC or hit the floor. Was caught by family member. Head CT showed age-related changes. - Patient likely to benefit from ongoing OT/PT Sacral decubitus ulcer negative for Osteomyelitis - Coccyx x-ray indeterminate for osteomyelitis. ID and Wound care is consulted. - Sacral bone scan suggestive of soft tissue infection only. - c/w with air mattress to relieve pressure. -c/w PO Augmentin 875mg BID and PO Bactrim 800/160mg q12h Lower extremities cellulitis Occurrence in the setting of chronic edema and chronic venous stasis - In view of current antibiotic coverage for Sacral cellulitis, leg cellulitis should be adequately treated. UTI - UA is nitrate (+), but culture was contaminated - In view of current antibiotic coverage for sacral cellulitis, UTI should be adequately treated. HTN - Lisinopril on hold in view of stable BP. Continue to monitor Gout - Continue 300mg Allopurinol daily. DVT prophylaxis - SCDs Dispo- Full code, was living at home, pt and family want discharge to SNF with increased rehabilitation. - Consider conversation with daughter about code status, daughter was not present. - According to patient, after an extensive discussion about what to do if her heart stops or if she stops breathing, pt does not want chest compressions and/ or intubation. Want to discuss this with daughter before document DNR/DNI in the chart. In my estimation patient has full capacity. Resident Involvement: Resident Care Provided Care Provided: Adult Hospital Medicine
[2016-12-15 15:35] VITALS: BP 157/60; PULSE 65; TEMP 36.6; O2SAT 94
[2016-12-15 16:00] VITALS: O2SAT 94
[2016-12-15] MEDS ORDERED: SULF-183 PO (16:08)
[2016-12-15] MEDS ORDERED: AMOX1TAB43 PO (16:08)
--- NOTE | 2016-12-15 16:14 | Discharge Summary ---
Discharge Summary Admission Date: Dec 07, 2016 at 13:47 [facility] Principal Diagnosis: Acute Hypoxia associated with Delerium Problems/Secondary Diagnoses: Decubitus Ulcer DM2 Afib Decubitus Ulcer Immunizations: Have You Had Influenza Vaccine: No History of Tetanus Vaccine?: Yes History of Pneumococcal: No History of Hepatitis B Vaccine: No (Jordan Driscoll M.D.) Medication Reconciliation New Medications: Amoxicillin & Pot Clavulanate (Amoxicillin/Clavulanate P) 1 Tab Tab 875 MG PO BIDM for 2 Days, #5 TAB Sulfamethoxazole-Trimethoprim (Smz-Tmp Ds) 1 Tab Tab 1 TAB PO Q12 for 2 Days, #5 TAB Continued Medications: Allopurinol (Zyloprim) 300 Mg Tab 300 MG PO DAILY, TAB Aspirin Enteric Coated (Ecotrin Or Generic) 81 Mg Tab 81 MG PO DAILY, TAB Cholecalciferol (Vitamin D 1000 Unit) 1,000 Unit Cap 2000 INTER.UNIT PO DAILY Digoxin (Digox) 125 Mcg Tab 125 MCG PO DAILY Diltiazem Hcl Ext Rel (Tiazac) 120 Mg Capcr 120 MG PO DAILY, CAP Furosemide (Lasix) 40 Mg Tab 40 MG PO DAILY, 0 Refills Take half of a 40mg tablet Glipizide (Glipizide Er) 5 Mg Tab 1 TAB PO DAILY for 90 Days, #90 TAB 3 Refills Lisinopril (Lisinopril) 2.5 Mg Tab 2.5 MG PO DAILY Potassium Chloride (Micro-K Ext Rel) 10 Meq Capcr 10 MEQ PO DAILY, CAP Discharge Exam Subjective The patient was seen and examined at bedside. No acute overnight events. Patient is resting comfortably and has no complaints. Patient is resting comfortably in bed. Denies having any pain. Eating and urinating well. Plan of care was described to the patient and all questions were answered. Physical Exam General Appearance: WD/WN, no apparent distress, + thin Respiratory/Chest: chest non-tender, lungs clear, normal breath sounds, no respiratory distress, no accessory muscle use Cardiovascular: regular rate, rhythm, no edema, no gallop, no JVD, no murmur Abdomen: normal bowel sounds, non tender, soft, no organomegaly Extremities: + pertinent finding (Patient has chronic vascular discoloration of her lower extremities. ) Neurologic/Psychiatric: no motor/sensory deficits, alert, normal mood/affect, oriented x 3 (Jordan Driscoll M.D.) No new concerns today Review of Systems: Constitutional: No fever Respiratory: + cough (mild cough occasionally. none during visit), No shortness of breath Cardiovascular: No chest pain Physical Exam: General Appearance: no apparent distress, + pertinent finding (frail. ) Respiratory/Chest: lungs clear, no respiratory distress Cardiovascular: + irregularly irregular Abdomen / GI: normal bowel sounds, non tender, soft Neurologic/Psychiatric: alert, oriented x 3 Skin: warm/dry, + pertinent finding (sacral decub) (Irene Ferrer M.D.) Hospital Course 86 year old female with a past medical history of DM2, HTN, CHF, Afib, and hx of CVA presented to the hospital s/p near fall secondary to generalized weakness and found to have infected sacral decubitus ulcer, UTI, LE Cellulitis and found to be hypoxemic likely secondary to pleural effusions from diastolic CHF. Head CT showed age-related changes. A sacral bone scan was negative for osteomyelitis. Her chest X-ray showed evidence of congestive failure with cardiomegaly and bilateral pleural effusions. Major Problem: Acute hypoxia associated with delirium Pt was treated with Lasix 20mg IV daily and monitored with continuos pulse oximetry and periodic checks. We found that the pulse oximetry measurement via the forehead was consistently the most accurate. We encouraged hourly spirometry. A speech therapy consult found aspiration as an unlikely cause of the pulmonary congestion. Secondary Problem: Chronic diastolic CHF/CHF Pt had no complaints at present of chest pain or physical symptoms of heart failure during her admission. Her home dose of digoxin was continued while inpatient as was her Aspirin. Her Diltiazem was held due to a sporadic episode of bradycardia that resolved. Diltiazem was continued on discharge. While in the hospital the patient's mental status improved considerably. We used insulin to control the patients blood sugar. The patient early in her hospital course experience a bout of diarrhea that was likely secondary to potassium repletion. She was discharge without any symptoms of diarrhea. While in the hospital the pt received daily Physical Therapy and Occupational Therapy Evaluations. We are discharging the patient on 2 and a half days of Augmentin 875mg BID and Bactrim 800/160mg Q12H to complete the antibiotic course for her sacral ulcers and lower extremity cellulitis. She was also placed on an air mattress to relieve pressure on her sacrum. The patient's regular dose of Allopurinol was also continued in the hospital. The patient's dose of lisinopril was held in light of normal blood pressures while in hospital and resumed on discharge. Total Time Spent: Greater than 30 minutes This includes examination of the patient, discharge planning, medication reconciliation, and communication with other providers. (Jordan Driscoll M.D.) I have reviewed the medical record and performed a history and physical examination of this patient today. I have discussed the case with Dr. Driscoll. The above note reflects my findings, conclusions, and recommendations For sacral decub - ID input noted. No sign of osteomyelitis. No need for IV antibiotics. Patient to be on total 2-4 wks of oral antibiotics - [facility] called to continue 4 more days of antibiotics since discharged on total of only 10 days of abx. Total Time Spent: Greater than 30 minutes (40 min) (Irene Ferrer M.D.) Discharge Instructions Please refer to the electronic Patient Visit Report (Discharge Instructions) for additional information. Follow up with Primary Care Provider within two weeks. Continue the antibiotics Augmentin 875mg BID and Bactrim 800/160mg Q12H as prescribed. The Speech Therapist had the following recommendations on discharge: 1. Continue with a regular diet, modify to dental soft should any increased difficulty be noted with mastication. 2. Aspiration precautions. Straws OK. 3. Fully upright for meals. Alternate solids and liquids. Rest breaks as needed. Resume regular activity as tolerated. (Jordan Driscoll M.D.) Follow-Up Follow up with Primary Care Provider within two weeks. (Jordan Driscoll M.D.) Additional Copies To [facility]; Gene Guidry M.D. Resident Involvement: Resident Care Provided Care Provided: Adult Hospital Medicine (Jordan Driscoll M.D.)
--- NOTE | 2016-12-15 16:24 | Discharge Instructions ---
Discharge Instructions Admission Reason for Admission: Sacral Decubitis Ulcer, Stage Iv, Sepsis Secondary Discharge Discharge Diagnosis / Problem: Acute Hypoxia associated with Delirium Discharge Goals Goal(s): Decrease discomfort, Improve function, Improve nutritional status, Learn about illness Activity Recommendations Activity Limitations: resume your previous activity . Instructions / Follow-Up Instructions / Follow-Up Follow up with your primary care provider in two weeks. Current Hospital Diet Patient's current hospital diet: Diabetes Type 2 Diet Discharge Diet Recommended Diet: Diabetes Type 2 Diet Pending Studies Studies pending at discharge: no Medical Emergencies . Who to Call and When: Medical Emergencies: If at any time you feel your situation is an emergency, please call 911 immediately. . Non-Emergent Contact Non-Emergency issues call your: Primary Care Provider . . "Provider Documentation" section prepared by Jordan Driscoll. VTE Core Measure Inpt VTE Proph given/why not?: SCD's Resident Involvement: Resident Care Provided Care Provided: Adult Hospital Medicine
[2016-12-15] MEDS: DIGOXIN 0.125 MG TAB PO SCH (16:34)
[2016-12-15 16:45] VITALS: BP 157/60; PULSE 68; TEMP 36.6; O2SAT 94
== END 2016-12-15 17:30 | DRG 602 ==
LOC: ENRESERVTM → ENRESERVDT → EDBD 10:09 → C.EDA 10:10 → C.MS2W 13:47
PROVIDERS: ADMIT Hospitalist; ATTEND Family Medicine
DX: L03.115 Cellulitis of right lower limb (principal); L89.154 Pressure ulcer of sacral region, stage 4; M86.8X8 Other osteomyelitis, other site; N39.0 Urinary tract infection, site not specified; E46 Unspecified protein-calorie malnutrition; I50.32 Chronic diastolic (congestive) heart failure; L03.116 Cellulitis of left lower limb; Z85.828 Personal history of other malignant neoplasm of skin; R29.810 Facial weakness; I48.91 Unspecified atrial fibrillation; E11.9 Type 2 diabetes mellitus without complications; I10 Essential (primary) hypertension; S32.040S Wedge compression fracture of fourth lumbar vertebra, sequela; R41.0 Disorientation, unspecified; M10.9 Gout, unspecified; I87.8 Other specified disorders of veins; E87.6 Hypokalemia; R09.02 Hypoxemia; Z86.73 Personal history of transient ischemic attack (TIA), and cerebral infarction without residual deficits; R19.7 Diarrhea, unspecified; T50.3X5A Adverse effect of electrolytic, caloric and water-balance agents, initial encounter; Y92.230 Patient room in hospital as the place of occurrence of the external cause

== ENCOUNTER 2016-12-31 17:51 | Inpatient (IN) | payer OTHER ==
[~2016-12-31] VITALS: Ht 172.7 cm; Wt 63.3 kg
[~2016-12-31 17:51] MED LIST changes: -ALL300 PO; +ALLO300T2 PO; +AMOX1TAB43 PO; -CRDCD120 PO; +DIGO0.1219 PO; -DIGO0.122 PO; +DILT120C68 PO; -DOCU-94 PO; -LVQ750 PO; +POTA10CA28 PO; +SULF-183 PO
[2016-12-31] MEDS ORDERED: PIPERACILLIN/TAZOBACTAM 4.5 GM/100ML D5W IV STA (17:58)
--- NOTE | 2016-12-31 18:11 | EMERGENCY ROOM VISIT NOTE ---
History Report prepared by Nadiya: Derrick Obrien Under the Supervision of: Dr. Bennett Choe M.D. First contact with patient: 17:54 Chief Complaint: WEAKNESS Stated Complaint: WEAKNESS/ EDEMA-LOWER LEGS History of Present Illness The patient is a 86 year old female who presents to the Emergency Room with complaints of persistent weakness beginning this afternoon. She notes that after waking up from a nap at home, she noticed her legs became swollen and she had difficulty moving. She reports her legs were not weak this morning. She notes that her family was present today at her home. The patient denies any shortness of breath, chest pain, vomiting, or diarrhea, and has not had any recent falls. She was at [facility] for a couple weeks and was recently discharged 4 days ago. She notes she follows with Dr. Dumont. The patient was here in the Hospital and discharged 16 days ago with swelling of her legs and fluid overload. Source of History: patient Onset: this afternoon Position: leg (bilateral) Quality: other (swelling and weakness) Timing: other (persistent) Associated Symptoms: No SOB, No chest pain, No diarrhea, No vomiting Review of Systems See HPI for pertinent positives & negatives. A total of 10 systems reviewed and were otherwise negative. Past Medical & Surgical Medical Problems: (1) Afib (2) CHF (congestive heart failure) (3) Diabetes mellitus, type 2 (4) History of CVA (cerebrovascular accident) (5) HTN (hypertension) (6) Sacral decubitus ulcer, stage IV (7) Sepsis secondary to UTI (8) Squamous cell skin cancer Family History Cancer Diabetes mellitus FHx: heart disease Gallbladder disease Hypertension Kidney disease Social History Smoking Status: Never Smoker Drug Use: none Marital Status: single Housing Status: lives with family Occupation Status: retired Current/Historical Medications Scheduled Allopurinol (Zyloprim), 300 MG PO DAILY Amoxicillin & Pot Clavulanate (Amoxicillin/Clavulanate P), 875 MG PO BIDM Aspirin Enteric Coated (Ecotrin Or Generic), 81 MG PO DAILY Cholecalciferol (Vitamin D 1000 Unit), 2,000 INTER.UNIT PO DAILY Digoxin (Digox), 125 MCG PO DAILY Diltiazem Hcl Ext Rel (Tiazac), 120 MG PO DAILY Furosemide (Lasix), 20 MG PO QAM Glipizide (Glipizide Er), 1 TAB PO DAILY Lactobacillus Acidophilus-Pect (Acidophilus/Pectin), 1 CAP PO DAILY Allergies Coded Allergies: Codeine (Verified Adverse Reaction, Mild, VOMITING, 12/31/16) Physical Exam Vital Signs Date Time Temp Pulse Resp B/P Pulse Ox O2 Delivery O2 Flow Rate FiO2 12/31/16 18:20 96 Room Air 12/31/16 18:20 36.6 61 18 103/40 96 Room Air Physical Exam GENERAL: Patient is in no acute distress. HEENT: No acute trauma, normocephalic atraumatic, mucous membranes moist, no nasal congestion, no scleral icterus. NECK: No stridor, no adenopathy, no meningismus, trachea is midline. LUNGS: Equal breath sounds; no respiratory distress; somewhat diminished breath sounds bilaterally with occasional crackles. HEART: 2/6 systolic murmur with irregular rhythm and normal rate. ABDOMEN: Soft, nontender, bowel sounds positive, no hernias, no peritonitis. EXTREMITIES: Bilateral pedal edema with bilateral lower leg erythema and warmth consistent with cellulitis. No acute trauma. NEUROLOGIC: Oriented x 3, no acute motor or sensory deficits, no focal weakness. SKIN: No rash, no jaundice, no diaphoresis. Medical Decision & Procedures ER Provider Diagnostic Interpretation: X ray results and stated below per my interpretation and radiologist interpretation. Other radiology results and stated below per my review and radiologist interpretation: CHEST ONE VIEW PORTABLE FINDINGS: The heart is mildly enlarged. There is mild central vascular prominence. There is splaying of the beto. There is been near complete interval resolution of the previous described bilateral pulmonary airspace opacities. IMPRESSION: 1. Near complete interval resolution of the previous described bilateral pulmonary airspace opacities with resolution of the bilateral pleural effusions 3. Mild central vascular prominence Electronically signed by: Nahid De La Fuente M.D. 12/31/2016 6:33 PM Dictated Date/Time: 12/31/2016 6:32 PM Laboratory Results 12/31/16 18:10 Red Blood Count 2.75, Mean Corpuscular Volume 97.1, Mean Corpuscular Hemoglobin 32.4, Mean Corpuscular Hemoglobin Concent 33.3, Mean Platelet Volume 10.9, Neutrophils (%) (Auto) 47.4, Lymphocytes (%) (Auto) 40.1, Monocytes (%) (Auto) 10.5, Eosinophils (%) (Auto) 0.7, Basophils (%) (Auto) 0.4, Neutrophils # (Auto ) 7.02, Lymphocytes # (Auto) 5.94, Monocytes # (Auto) 1.55, Eosinophils # (Auto ) 0.10, Basophils # (Auto) 0.06 12/31/16 18:10 Test 12/31/16 18:10 12/31/16 18:18 12/31/16 18:52 White Blood Count 14.81 K/uL (4.8-10.8) Red Blood Count 2.75 M/uL (4.2-5.4) Hemoglobin 8.9 g/dL (12.0-16.0) Hematocrit 26.7 % (37-47) Mean Corpuscular Volume 97.1 fL (80-100) Mean Corpuscular Hemoglobin 32.4 pg (25-34) Mean Corpuscular Hemoglobin Concent 33.3 g/dl (32-36) Platelet Count 290 K/uL (130-400) Mean Platelet Volume 10.9 fL (7.4-10.4) Neutrophils (%) (Auto) 47.4 % Lymphocytes (%) (Auto) 40.1 % Monocytes (%) (Auto) 10.5 % Eosinophils (%) (Auto) 0.7 % Basophils (%) (Auto) 0.4 % Neutrophils # (Auto) 7.02 K/uL (1.4-6.5) Lymphocytes # (Auto) 5.94 K/uL (1.2-3.4) Monocytes # (Auto) 1.55 K/uL (0.11-0.59) Eosinophils # (Auto) 0.10 K/uL (0-0.5) Basophils # (Auto) 0.06 K/uL (0-0.2) RDW Standard Deviation 55.3 fL (36.4-46.3) RDW Coefficient of Variation 16.0 % (11.5-14.5) Immature Granulocyte % (Auto) 0.9 % Immature Granulocyte # (Auto) 0.14 K/uL (0.00-0.02) Smudge Cells PRESENT Prothrombin Time 10.8 SECONDS (9.0-12.0) Prothromb Time International Ratio 1.0 (0.9-1.1) Activated Partial Thromboplast Time 28.0 SECONDS (21.0-31.0) Partial Thromboplastin Ratio 1.1 Anion Gap 8.0 mmol/L (3-11) Est Creatinine Clear Calc Drug Dose 20.6 ml/min Estimated GFR () 30.9 Estimated GFR (Non- 26.6 BUN/Creatinine Ratio 55.2 (10-20) Calcium Level 8.8 mg/dl (8.5-10.1) Magnesium Level 1.9 mg/dl (1.8-2.4) Total Bilirubin 0.4 mg/dl (0.2-1) Aspartate Amino Transf (AST/SGOT) 62 U/L (15-37) Alanine Aminotransferase (ALT/SGPT) 51 U/L (12-78) Alkaline Phosphatase 93 U/L (45-117) Troponin I 0.018 ng/ml (0-0.045) C-Reactive Protein 1.28 mg/dl (0-0.29) Pro-B-Type Natriuretic Peptide 2578 pg/ml (0-1800) Total Protein 6.7 gm/dl (6.4-8.2) Albumin 2.8 gm/dl (3.4-5.0) Globulin 3.9 gm/dl (2.5-4.0) Albumin/Globulin Ratio 0.7 (0.9-2) Procalcitonin 0.92 ng/mL (0-0.5) Thyroid Stimulating Hormone (TSH) 2.590 uIu/ml (0.300-4.500) Digoxin Level 1.3 ng/ml (0.8-2.0) Urine Color DK YELLOW Urine Appearance TURBID (CLEAR) Urine pH 5.0 (4.5-7.5) Urine Specific [place] 1.015 (1.000-1.030) Urine Protein TRACE (NEG) Urine Glucose (UA) NEG (NEG) Urine Ketones NEG (NEG) Urine Occult Blood TRACE (NEG) Urine Nitrite NEG (NEG) Urine Bilirubin NEG (NEG) Urine Urobilinogen NEG (NEG) Urine Leukocyte Esterase LARGE (NEG) Urine WBC (Auto) >30 /hpf (0-5) Urine RBC (Auto) 0-4 /hpf (0-4) Urine Hyaline Casts (Auto) 1-5 /lpf (0-5) Urine Epithelial Cells (Auto) 5-10 /lpf (0-5) Urine Bacteria (Auto) NEG (NEG) Urine Pathogenic Casts /lpf (0) Urine Yeast (Auto) BUD W/ HYPHAE (NONE PRSENT) Lactic Acid Level 1.0 mmol/L (0.4-2.0) Laboratory results reviewed by me. Medications Administered Medications (Trade) Dose Ordered Sig/Kaylee Route Start Time Stop Time Status Last Admin Dose Admin Piperacillin Sod/ Tazobactam Sod (Zosyn Iv) 4.5 gm NOW STAT IV 12/31/16 17:58 12/31/16 21:15 DC 12/31/16 18:50 4.5 GM Dextrose (Dextrose 50% 50ML Syringe) 25 ml NOW ONCE IV 12/31/16 19:00 12/31/16 19:01 DC 12/31/16 19:06 25 ML ECG Indication: weakness Rate (beats per minute): 59 Rhythm: atrial fibrillation Findings: no acute ischemic change, no ectopy, other (old septal infarct) ED Course 1754: The patient was evaluated in room C7. A complete history and physical exam was performed. 1757:Ordered Zosyn Iv 4.5 gm IV. 1899: Ordered Dextrose 25 ml IV. 0: I updated the patient and her family. 1924: Discussed the patient's case with Dr. López. The patient will be evaluated for further management. Medical Decision Differentials include cellulitis, fluid overload, CHF, anemia, electrolyte imbalance, UTI, dehydration, and stroke. The patient does have a mild leukocytosis which would be consistent with infection. She is anemic but this appears baseline looking back at previous testing. The patient has evidence for some acute renal failure/dehydration by our testing. The patient was hypoglycemic, her blood sugar did rebound after a dose of IV dextrose. There is no hepatitis. BNP is elevated consistent with fluid overload. Chest film does not show pneumonia or CHF. EKG shows A. fib, no acute ischemia. Cardiac enzyme testing times one is not consistent with acute cardiac injury. Urinalysis is suggestive of infection, urine culture is pending. Digoxin level is not toxic. Blood cultures are pending. The patient appears to be in a euthyroid state. Lactic acid is not elevated making severe sepsis less likely. Patient received IV D50, she received IV Zosyn. She was able to eat a sandwich during her stay in the emergency room. Her blood sugar is improved. The patient has a bilateral lower extremity cellulitis. She has some acute renal failure/dehydration. She is quite weak. She also may have a UTI by testing, we await the urine culture results. I do think admission/observation is warranted. I did speak with the patient and case management. The on-call hospitalist was consulted. Consults Time Called: 1919 Consulting Physician: Dr. López - [facility] Returned Call: 1924 Discussed the patient's case with Dr. López. The patient will be evaluated for further management. Impression Primary Impression: Cellulitis of both lower extremities Additional Impressions: Acute renal failure Hypoglycemia Weakness Scribe Attestation The scribe's documentation has been prepared under my direction and personally reviewed by me in its entirety. I confirm that the note above accurately reflects all work, treatment, procedures, and medical decision making performed by me. Departure Information Dispostion Being Evaluated By Hospitalist Referrals Gene Guidry M.D. (PCP) Patient Instructions My [facility] Problem Qualifiers
[2016-12-31] MEDS ORDERED: GLIP2.5T11 PO (18:20)
[2016-12-31] MEDS ORDERED: FURO-85 PO (18:20)
[2016-12-31] MEDS ORDERED: LACTCAP PO (18:20)
[2016-12-31 18:28] LABS: URINE APPEARANCE TURBID (CLEAR); URINE BILIRUBIN NEG (NEG); URINE COLOR DK YELLOW; URINE NITRITE NEG (NEG); URINE SPECIFIC GRAVITY 1.015 (1.000-1.030); UROBILINOGEN NEG (NEG); ZZURINE CULT IF INDIC CATH YES
[2016-12-31 18:28] LABS: HEMATOCRIT 26.7 % (37-47); MEAN CELL VOLUME 97.1 fL (80-100); MEAN CORPUSCULAR HEMOGLOBIN 32.4 pg (25-34); MEAN CORPUSCULAR HGB CONC 33.3 g/dl (32-36); MEAN PLATELET VOLUME 10.9 fL (7.4-10.4); PLATELET COUNT 290 K/uL (130-400); RED BLOOD COUNT 2.75 M/uL (4.2-5.4); WHITE BLOOD COUNT 14.81 K/uL (4.8-10.8)
[2016-12-31 18:32] LABS: MANUAL MICROSCOPIC REQUIRED? NO; REVIEW REQ? YES
--- NOTE | 2016-12-31 18:35 | DIAGNOSTIC IMAGING REPORT ---
CHEST ONE VIEW PORTABLE CLINICAL HISTORY: Altered mental status. Weakness. Leg edema. COMPARISON STUDY: 12/13/2016 FINDINGS: The heart is mildly enlarged. There is mild central vascular prominence. There is splaying of the beto. There is been near complete interval resolution of the previous described bilateral pulmonary airspace opacities.[ IMPRESSION: 1. Near complete interval resolution of the previous described bilateral pulmonary airspace opacities with resolution of the bilateral pleural effusions 3. Mild central vascular prominence Electronically signed by: Nahid De La Fuente M.D. 12/31/2016 6:33 PM Dictated Date/Time: 12/31/2016 6:32 PM
[2016-12-31 18:39] LABS: PARTIAL THROMBOPLASTIN RATIO 1.1; PROTHROMBIN TIME (PATIENT) 10.8 SECONDS (9.0-12.0)
[2016-12-31 18:54] LABS: BUN/CREATININE RATIO 55.2 (10-20); CALCIUM 8.8 mg/dl (8.5-10.1); CREATININE 1.7 mg/dl (0.60-1.20); MAGNESIUM 1.9 mg/dl (1.8-2.4); POTASSIUM 4.4 mmol/L (3.5-5.1)
[2016-12-31] MEDS ORDERED: DEXTROSE 50% 50 ML SYR IV ONE (19:00)
[2016-12-31 19:07] LABS: ALB/GLOB RATIO 0.7 (0.9-2); THYROID STIMULATING HORMONE 2.59 uIu/ml (0.300-4.500)
[2016-12-31 19:55] LABS: BASO % 0.4 %; BASO ABS # 0.06 K/uL (0-0.2); COMPLETE YES; EOS % 0.7 %; IG% 0.9 %; LYMPH % 40.1 %; LYMPH ABS # 5.94 K/uL (1.2-3.4); MONO % 10.5 %; NEUT % 47.4 %; SMUDGE CELLS PRESENT
[2016-12-31] MEDS ORDERED: ALUMINUM/MAGNESIUM/SIMETH (MAALOX MAX) 30 ML UDC PO PRN (20:15)
[2016-12-31] MEDS ORDERED: MAGNESIUM HYDROXIDE SUSP 30 ML UDC PO PRN (20:15)
[2016-12-31] MEDS ORDERED: ONDANSETRON INJ 2 MG/ML 2 ML VIAL IV PRN (20:15)
[2016-12-31] MEDS ORDERED: ACETAMINOPHEN 325 MG TAB PO PRN (20:15)
[2016-12-31] MEDS ORDERED: PIPERACILL/TAZOBAC CONSULT ACTIVE PRN (20:23)
[2016-12-31] MEDS ORDERED: POLYETHYLENE (MIRALAX) 17 GM PACK PO PRN (20:30)
[2016-12-31] MEDS ORDERED: PHARMACY GLYCEMIC MGMT CONSULT PRN (20:45)
--- NOTE | 2016-12-31 20:46 | History and Physical ---
History & Physical Date & Time of Service: Dec 31, 2016 at 19:36 Chief Complaint: Weakness/ Edema-Lower Legs Primary Care Physician: Gene Guidry M.D. History of Present Illness 86F with a PMHx of Afib, DM2, h/o sacral decubitus ulcers who was [place] [facility] [place] presents with a 1 day history of weakness and swelling in her lower extremities. Pt is accompanied by both daughters were are the chief historians. Pt on Wednesday (4 days prior) was sent home from her long-term facility with a najera in place. Family states that pt has been doing well since being home but today was feeling a little off. Family is worried about 1) decreased urine output in najera starting today despite adequate PO fluid intake 2) swelling in the LE which they believe may be positional because pt's legs haven't been elevated 3) decreased strength which according to family occurs every time pt gets a UTI. According to pt she feels well and has no complaints. Pt is hard of hearing. In the ER blood sugar was found to be 37 and patient was given Dextrose and a sandwich. ROS: Denies chest pain, denies cough, denies shortness of breath. Eating and drinking well. Past Medical/Surgical History Medical Problems: (1) Afib Status: Chronic (2) CHF (congestive heart failure) Status: Chronic (3) Diabetes mellitus, type 2 Status: Chronic (4) History of CVA (cerebrovascular accident) Status: Chronic (5) HTN (hypertension) Status: Chronic (6) Squamous cell skin cancer Status: Chronic Family History Cancer Diabetes mellitus FHx: heart disease Gallbladder disease Hypertension Kidney disease Social History Smoking Status: Never Smoker Drug Use: none Marital Status: single Housing status: lives with family Occupational Status: retired Immunizations History of Influenza Vaccine: No History of Tetanus Vaccine?: Yes History of Pneumococcal: No History of Hepatitis B Vaccine: No Multi-Drug Resistant Organisms History of MDRO: Yes Type of MDRO: MRSA Allergies Coded Allergies: Codeine (Verified Adverse Reaction, Mild, VOMITING, 12/31/16) Home Medications Scheduled Allopurinol (Zyloprim), 300 MG PO DAILY Amoxicillin & Pot Clavulanate (Amoxicillin/Clavulanate P), 875 MG PO BIDM Aspirin Enteric Coated (Ecotrin Or Generic), 81 MG PO DAILY Cholecalciferol (Vitamin D 1000 Unit), 2,000 INTER.UNIT PO DAILY Digoxin (Digox), 125 MCG PO DAILY Diltiazem Hcl Ext Rel (Tiazac), 120 MG PO DAILY Furosemide (Lasix), 20 MG PO QAM Glipizide (Glipizide Er), 1 TAB PO DAILY Lactobacillus Acidophilus-Pect (Acidophilus/Pectin), 1 CAP PO DAILY Review of Systems ros otherwise negative except for as above and below Physical Exam Vital Signs Date Time Temp Pulse Resp B/P Pulse Ox O2 Delivery O2 Flow Rate FiO2 12/31/16 18:20 96 Room Air 12/31/16 18:20 36.6 61 18 103/40 96 Room Air General Appearance: WD/WN, no apparent distress, + thin ENT: + pertinent finding (Patient is hard of hearing. ) Respiratory/Chest: chest non-tender, lungs clear, normal breath sounds, no respiratory distress, no accessory muscle use Cardiovascular: no edema, no gallop, no JVD, no murmur, + irregularly irregular Abdomen/GI: non tender, soft Genitourinary - Female: + pertinent finding (Pt has a najera and is draining clear yellow urine. ) Extremities/Musculoskelatal: + pertinent finding (Chronic Statis dermatitis in LE bilaterally, both LE have 2+ edema, tender to palpation, with crusting skin changes. Feet are also extremely swollen but not tender to palpation.) Neurologic/Psych: alert, normal mood/affect, normal reflexes, oriented x 3 Diagnostics Laboratory Results Results Past 24 Hours Test 12/31/16 18:10 12/31/16 18:18 12/31/16 18:52 Range/Units White Blood Count 14.81 4.8-10.8 K/uL Red Blood Count 2.75 4.2-5.4 M/uL Hemoglobin 8.9 12.0-16.0 g/dL Hematocrit 26.7 37-47 % Mean Corpuscular Volume 97.1 80-100 fL Mean Corpuscular Hemoglobin 32.4 25-34 pg Mean Corpuscular Hemoglobin Concent 33.3 32-36 g/dl Platelet Count 290 130-400 K/uL Mean Platelet Volume 10.9 7.4-10.4 fL RDW Standard Deviation 55.3 36.4-46.3 fL RDW Coefficient of Variation 16.0 11.5-14.5 % Prothrombin Time 10.8 9.0-12.0 SECONDS Prothromb Time International Ratio 1.0 0.9-1.1 Activated Partial Thromboplast Time 28.0 21.0-31.0 SECONDS Partial Thromboplastin Ratio 1.1 Sodium Level 139 136-145 mmol/L Potassium Level 4.4 3.5-5.1 mmol/L Chloride Level 108 98-107 mmol/L Carbon Dioxide Level 23 21-32 mmol/L Anion Gap 8.0 3-11 mmol/L Blood Urea Nitrogen 94 7-18 mg/dl Creatinine 1.70 0.60-1.20 mg/dl Est Creatinine Clear Calc Drug Dose 20.6 ml/min Estimated GFR () 30.9 Estimated GFR (Non- 26.6 BUN/Creatinine Ratio 55.2 10-20 Random Glucose 37 70-99 mg/dl Calcium Level 8.8 8.5-10.1 mg/dl Magnesium Level 1.9 1.8-2.4 mg/dl Total Bilirubin 0.4 0.2-1 mg/dl Aspartate Amino Transf (AST/SGOT) 62 15-37 U/L Alanine Aminotransferase (ALT/SGPT) 51 12-78 U/L Alkaline Phosphatase 93 45-117 U/L Troponin I 0.018 0-0.045 ng/ml Pro-B-Type Natriuretic Peptide 2578 0-1800 pg/ml Total Protein 6.7 6.4-8.2 gm/dl Albumin 2.8 3.4-5.0 gm/dl Globulin 3.9 2.5-4.0 gm/dl Albumin/Globulin Ratio 0.7 0.9-2 Thyroid Stimulating Hormone (TSH) 2.590 0.300-4.500 uIu/ml Digoxin Level 1.3 0.8-2.0 ng/ml Urine Color DK YELLOW Urine Appearance TURBID CLEAR Urine pH 5.0 4.5-7.5 Urine Specific [place] 1.015 1.000-1.030 Urine Protein TRACE NEG Urine Glucose (UA) NEG NEG Urine Ketones NEG NEG Urine Occult Blood TRACE NEG Urine Nitrite NEG NEG Urine Bilirubin NEG NEG Urine Urobilinogen NEG NEG Urine Leukocyte Esterase LARGE NEG Urine WBC (Auto) >30 0-5 /hpf Urine RBC (Auto) 0-4 0-4 /hpf Urine Hyaline Casts (Auto) 1-5 0-5 /lpf Urine Epithelial Cells (Auto) 5-10 0-5 /lpf Urine Bacteria (Auto) NEG NEG Urine Pathogenic Casts 0 /lpf Urine Yeast (Auto) BUD W/ HYPHAE NONE PRSENT Lactic Acid Level 1.0 0.4-2.0 mmol/L Microbiology Results 12/31/16 Blood Culture, Received Pending 12/31/16 Blood Culture, Received Pending 12/31/16 Urine Culture, Received Pending Diagnostic Radiology CHEST ONE VIEW PORTABLE CLINICAL HISTORY: Altered mental status. Weakness. Leg edema. COMPARISON STUDY: 12/13/2016 FINDINGS: The heart is mildly enlarged. There is mild central vascular prominence. There is splaying of the beto. There is been near complete interval resolution of the previous described bilateral pulmonary airspace opacities.[ IMPRESSION: 1. Near complete interval resolution of the previous described bilateral pulmonary airspace opacities with resolution of the bilateral pleural effusions 3. Mild central vascular prominence EKG Atrial fibrillation with slow ventricular response Possible Anterior infarct , age undetermined Nonspecific T wave abnormality Abnormal ECG When compared with ECG of 13-DEC-2016 14:31, No significant change was found Confirmed by SAMI ARMSTRONG MD ([id number]) on 12/31/2016 6:58:47 PM Impression Assessment and Plan 86F with a PMHx of Afib, DM2 (glipizide controlled) presents with a one day history of weakness and acute onset leg swelling. Chest X-ray was clear. Patient's was also found to have low blood sugar which was corrected in the ER. WBC was elevated, normal lactate, no AMS - pt is unlikely septic. Unclear whether infection in legs or urine, will wait for procalcitonine, CRP, blood and urine cultures to come back before starting Abx. BMP was also elevated at 2500, unknown if this is pt's baseline. Ordered echo to r/o R heart failure and dopplers to rule out DVT. LE Swelling 2/2 Cellulitis vs Fluid overload vs DVT. - Pt has statis dermatitis in the LE and they are edematous, markedly worsened from prior admission (I discharged the patient). BMP was also elevated, 2500, no recent number to compare baseline. - Pt has been sitting with legs not elevated at home, in hospital pt will have legs elevated. - Follow up blood cultures for possible cellulitis. - hold Zosyn until Procalcitonin and CRP come back - Echocardiogram ordered for possible R heart failure (no echo in chart) - F/u lower extremity dopplers, if negative recommend compression stockings on pt. - On discharge recommend a remind for family to have pt sit with legs elevated at least 20 min every day. Catheter related UTI - hold Zosyn until Procalcitonin and CRP come back - follow up urine culture. Acute Renal Failure (Creatinine 1.7 on admission, baseline is <1.0) - According to daughter urine output was low x 1 day. Careful not to fluid overload patient -> she developed pulmonary edema last visit. - On exam in the ER pt has a najera and is draining concentrated urine. - Pt is eating and drinking well, unknown whether we want to start fluids. - Monitor I&Os. - hold Lasix, no fluids at present. Hypoglycemia in the ER 2/2 DM2 - Blood sugar was 37 in the ER likely due to Glipizide. - Hold Glipizide, recommend hold on discharge as well. AFib - Pt has no cardiac symptoms. EKG unchanged from previous admission. Continue home meds, Diltiazem 120mg daily, digoxin 125mcg, Aspirin 81mg daily. DVT Proph: Lovenox SQ daily. Disp: Med Surg, [place] Low Air Loss Mattress, DM2 Diet, FULL CODE. Resident Physician Supervision Note: I interviewed and examined the patient. Discussed with Dr. Driscoll and agree with findings and plan as documented in the note. Any exceptions or clarifications are listed here: None Documented By: Joey beaulieu got out of [facility] about a week ago and has been in chair since with legs down. known venous insufficiency and chronic stasis dermatitis. legs swollen. urine diminished in volume and dark in color. poor intake. NO SOB, no f/c/ s. legs hurt some from swelling but not very painful, not burning. ros otherwise negative vitals noted, pleasant fatigued nad, mucous membranes sl dry, cardio reg lungs absolutely cta b/l no r/r/w good effort, ext no cyanosis. (+) equal b/l ~2+ edema mild tenderness equal no cords scattered shallow areas of opening no exudate. no erythema - skin changes appear to be venous stasis changes accentuated by new/worse edema. labs and Xray reviewed a/p weakness - likely multifactorial leg swelling/weakness/ARF - she appears "wet" on venous side of circulation (LE pitting edema) and "dry" on arterial side (ARF, dry mucous membranes, fatigue/ weakness). appears to be sequestering fluids on venous side of circulation - ddx for this being just simply bad venous stasis + immobility vs R sided CHF/ pulmonary HTN (but if this were the case would not be cor pulmonale since lungs clear) - d/w family and they agree - actually dtr wondered if "fluid was collecting in her legs from being in her chair all the time" -for now will elevated, and as long as venous dopplers neg for DVT, add compression -- allow this to mobilize fluid and hopefully PO intake will improve hydration - until echo back would hold off on IVF since she did have pulmonary edema (CXR reviewed - fairly significant) related to IV fluids last admission -- if hydration status/Creatinine not improving after echo back - then as long as safe would proceed with gentle IVF and close observation. if creatinine improving without IVF and just with leg fluid mobilization, then may hold off. certainly with hemodynamic stability, better to gather data than risk iatrogenic complications abnormal urine -appearing mostly concentrated. I do not believe she has a catheter associated UTI based on lack of sx, lack of compelling lab findings. no f/c/s. WBC marginal. Check CRP, procalcitonin to give more data - but unless compelling indication arises, would hold off on treating urine leg edema - see above - not c/w cellulitis - again unless inflammatory markers above are markedly elevated, would not treat as appears most c/w venous stasis changes sacral ulcer, leg edema superficial ulcers - wound consult, specialty bed hypoglycemia - stop sulfonylurea. suspect she doesn't need DM meds - await A1c , but would hold off on any treatment with age/frailty unless sugars notably elevated, or A1c comes back surprisingly high DVT proph -lovenox afib - rate controlled, apparently not anticoagulated due to fall risk otherwise as above Resident Involvement: Resident Care Provided Care Provided: Adult Hospital Medicine
[2016-12-31] MEDS ORDERED: GLUCAGON FOR INJ 1 MG VIAL SQ PRN (21:15)
[2016-12-31] MEDS ORDERED: GLUCOSE 10 TABS/TUBE PO PRN (21:15)
[2016-12-31] MEDS ORDERED: GLUCOSE 40% GEL 15 GM TUBE PO PRN (21:15)
--- NOTE | 2016-12-31 21:42 | Pharmacy Progress Note ---
Glycemic Control Intl Consult Date of Service Dec 31, 2016. Scope Glycemic Pharmacist consulted by Dr. Driscoll on 12/31/16 for glycemic control and to write orders per [facility] inpatient glycemic control protocol Objective Weight (Kilograms): 56.000 Accuchecks BSG (last 24hrs): Test 12/31/16 18:10 12/31/16 20:30 Random Glucose 37 mg/dl (70-99) Bedside Glucose 82 mg/dl (70-90) Laboratory Data (last 24hrs) Test 12/31/16 18:10 Anion Gap 8.0 mmol/L BUN/Creatinine Ratio 55.2 Blood Urea Nitrogen 94 mg/dl Creatinine 1.70 mg/dl Potassium Level 4.4 mmol/L Sodium Level 139 mmol/L White Blood Count 14.81 K/uL Red Blood Count 2.75 M/uL Hemoglobin 8.9 g/dL Hematocrit 26.7 % Mean Corpuscular Volume 97.1 fL Mean Corpuscular Hemoglobin 32.4 pg Mean Corpuscular Hemoglobin Concent 33.3 g/dl Platelet Count 290 K/uL Mean Platelet Volume 10.9 fL Neutrophils (%) (Auto) 47.4 % Lymphocytes (%) (Auto) 40.1 % Monocytes (%) (Auto) 10.5 % Eosinophils (%) (Auto) 0.7 % Basophils (%) (Auto) 0.4 % Neutrophils # (Auto) 7.02 K/uL Lymphocytes # (Auto) 5.94 K/uL Monocytes # (Auto) 1.55 K/uL Eosinophils # (Auto) 0.10 K/uL Basophils # (Auto) 0.06 K/uL Recent Pertinent Medications Outpatient Anti-diabetic Regimen: * Glipizide 2.5 mg ER po daily * no recent A1c available in our records Risk Factors for Insulin Resistance: * Infection: Zosyn IV q8h for cellulitis, UTI * Diet: Type II diabetic diet Assessment & Plan ASSESSMENT: * 86 year old female admitted with a one day history of weakness and LE swelling. The patient was discharged from a snf facility on 12/28/16, following a hospital admission 12/07/16-12/15/16 for pleural effusion. * EDY (baseline Scr is ~ 0.7 mg/dL) * Patient had a hypoglycemic episode in the ER (BSG = 37 mcg/dL). She was administered 25 mL of dextrose. * A1c pending PLAN FOR INPATIENT GLYCEMIC CONTROL: * Holding outpatient oral diabetes medications (glipizide ER) * Correctional Insulin with NOVOLOG per scale ACHS. Conservative regimen has been selected initially due to hypoglycemic event (possibly due to glipizide accumulation in patient with EDY). * Goal Range: Low 140 mg/dL - High 180 mg/dL * Correction Factor: 40 mg/dL/unit * No carb ratio until BSG on 01/01 am is evaluated * Please note that the plan above was derived based on current level of insulin resistance and hospital stress. These recommendations are appropriate for inpatient admission only. Plan of care upon discharge will need to be reassessed to avoid potential outpatient hypo/hyperglycemia. Thank you.
[2016-12-31 22:03] LABS: C-REACTIVE PROTEIN 1.28 mg/dl (0-0.29)
[2016-12-31 22:17] VITALS: BP 90/57; PULSE 57; TEMP 37.1; O2SAT 96; BMI 18.2
[2017-01-01] MEDS ORDERED: PIPERACILL/TAZOBAC IV 3.375 GM in DEXTROSE 5% 100ML 100 ML IV SCH ×2 (02:00→21:00)
[2017-01-01] MEDS: DEXTROSE 50% 50 ML SYR IV PRN ×3 (03:37→14:08)
[2017-01-01 06:22] LABS: HEMATOCRIT 24.1 % (37-47); MEAN CELL VOLUME 94.5 fL (80-100); MEAN CORPUSCULAR HEMOGLOBIN 31.4 pg (25-34); MEAN CORPUSCULAR HGB CONC 33.2 g/dl (32-36); MEAN PLATELET VOLUME 10.3 fL (7.4-10.4); PLATELET COUNT 255 K/uL (130-400); RED BLOOD COUNT 2.55 M/uL (4.2-5.4); WHITE BLOOD COUNT 12.16 K/uL (4.8-10.8)
[2017-01-01] MEDS ORDERED: INSULIN ASPART 100 UNITS/ML 3 ML PEN SC SCH (06:30)
--- NOTE | 2017-01-01 07:07 | DIAGNOSTIC IMAGING REPORT ---
BILATERAL LOWER EXTREMITY VENOUS DOPPLER HISTORY: Bilateral lower extremity tenderness and swelling COMPARISON STUDY: Venous Doppler 01/03/2012. FINDINGS: There is normal compressibility, flow, and augmentation within the bilateral lower extremity deep venous systems. IMPRESSION: No DVT within the right or left lower extremity. Electronically signed by: Yung Reina M.D. 01/01/2017 7:06 AM Dictated Date/Time: 01/01/2017 7:05 AM
[2017-01-01 07:10] LABS: ALB/GLOB RATIO 0.8 (0.9-2); BUN/CREATININE RATIO 54.6 (10-20); CREATININE 1.8 mg/dl (0.60-1.20); POTASSIUM 4.2 mmol/L (3.5-5.1)
[2017-01-01] MEDS: DILTIAZEM HCL 120 MG EXT REL CAP PO SCH (07:24)
[2017-01-01] MEDS: ASPIRIN 81 MG ECTAB PO SCH (07:24)
[2017-01-01] MEDS: CHOLECALCIFEROL 1000 INTER.UNIT TAB PO SCH (07:25)
[2017-01-01] MEDS ORDERED: MICONAZOLE NITRATE POWDER 43 GM ONE (07:29)
[2017-01-01 07:40] VITALS: BP 92/47; PULSE 49; TEMP 36; O2SAT 98
[2017-01-01 08:03] LABS: ESTIMATED AVERAGE GLUCOSE 91 mg/dl; HA1C FLAG Normal (Normal)
[2017-01-01] MEDS ORDERED: FUROSEMIDE 20 MG TAB PO SCH (09:00)
[2017-01-01 09:30] VITALS: PULSE 51
--- NOTE | 2017-01-01 09:58 | Clinical Documentation Query ---
NEEL Su : CLINICAL DOCUMENTATION QUERY Patient is an 86 year female admitted for evaluation and treatment of weakness, EDY, leg edema, and "sacral ulcer", not otherwise specified. EMR documentation from [facility] during last admission classified these ulcers as pressure, located on bilateral buttocks. They were staged at a 3. The staging, as appropriate, can be obtained from [facility] documentation at at later time, but the provider must still explicitly specify the nature of the lesion, i.e. pressure, arterial, stasis/venous insufficiency, etc... Please clarify as clinically appropriate. Thank you. In your clinical opinion is this patient being managed for: (X ) Pressure ulcer of right and left buttocks, stage 3 ( ) Other explanation of clinical findings (Please Explain) ( ) Unable to determine (Please Define) ( ) Need to Discuss ( ) Not Agree The medical record reflects the following clinical findings, treatment, and risk factors. Clinical Indicators: As above Treatment: WOCN consult, EHOB mattress Risk Factors: Age, failure to thrive Please clarify and document your clinical opinion in the progress notes and discharge summary. Terms such as "probable", "suspected", "likely", "questionable", "possible", or "still to be ruled out" are acceptable. IF IN AGREEMENT, YOU MUST DOCUMENT ABOVE DIAGNOSTIC STATEMENT IN DAILY PROGRESS NOTES AND DISCHARGE SUMMARY. This document is not part of the patient's record. Thank You, Derrick Allen, RN [phone]
--- NOTE | 2017-01-01 10:09 | Pharmacy Progress Note ---
Glycemic: Assessment & Plan Date of Service Jan 01, 2017. Assessment & Plan Pharmacy to sign off consult. Patient with severe hypoglycemia requiring 0 units of insulin. Of note, patient on Glipizide ER at home which has likely caused sustained hypoglycemia given age and renal function. Primary team noted to stop on admission. Thank you.
[2017-01-01] MEDS: D5W AND NSS 1,000 ML IV SCH (12:00)
[2017-01-01] MEDS ORDERED: NURSING VERBAL MED ORDER ONE (12:15)
[2017-01-01] MEDS ORDERED: NURSING DECISION MEDICATION ORDER SCH (12:15)
[2017-01-01] MEDS: EUCERIN CR 120 GM JAR EXT SCH ×2 (13:00→20:32)
[2017-01-01 14:12] VITALS: Ht 172.7 cm; Wt 63.3 kg
[2017-01-01 15:01] VITALS: BP 100/55; PULSE 37; TEMP 36; O2SAT 98
--- NOTE | 2017-01-01 15:24 | Progress Note ---
Subjective Date of Service: Jan 01, 2017. Subjective Pt evaluation today including: conversation w/ patient, physical exam, chart review, lab review, review of studies, review of inpatient medication list Problem List Medical Problems: (1) Acute renal failure Status: Acute (2) Cellulitis of both lower extremities Status: Acute (3) Confusion Status: Acute (4) Dehydration Status: Acute (5) Hypoglycemia Status: Acute (6) Hypokalemia Status: Acute (7) Hypomagnesemia Status: Acute (8) Weakness Status: Acute Review of Systems Constitutional: No chills, No fever Respiratory: No cough, No dyspnea on exertion, No shortness of breath, No sputum, No wheezing Cardiac: No chest pain, No orthopnea Abdomen: No constipation, No diarrhea, No nausea, No pain, No vomiting Musculoskeletal: No joint pain, No muscle pain Female : No dysuria, No urinary frequency Objective Vital Signs Date Time Temp Pulse Resp B/P Pulse Ox O2 Delivery O2 Flow Rate FiO2 01/01/17 15:01 36.0 37 22 100/55 98 Room Air 01/01/17 09:30 51 01/01/17 07:40 36.0 49 18 92/47 98 Room Air 01/01/17 07:30 Room Air 01/01/17 00:00 Room Air 12/31/16 22:17 37.1 57 16 90/57 96 Room Air 12/31/16 21:09 51 20 94/43 98 Room Air 12/31/16 20:28 53 18 91/36 99 Room Air 12/31/16 18:20 96 Room Air 12/31/16 18:20 36.6 61 18 103/40 96 Room Air Physical Exam General Appearance: WD/WN, no apparent distress Neck: supple, no adenopathy Respiratory/Chest: chest non-tender, lungs clear, normal breath sounds Cardiovascular: no gallop, no JVD Abdomen: non tender, soft Neurologic/Psychiatric: alert, oriented x 3 Laboratory Results Last 24 Hours Test 12/31/16 18:10 12/31/16 18:18 12/31/16 18:52 12/31/16 20:30 White Blood Count 14.81 K/uL Red Blood Count 2.75 M/uL Hemoglobin 8.9 g/dL Hematocrit 26.7 % Mean Corpuscular Volume 97.1 fL Mean Corpuscular Hemoglobin 32.4 pg Mean Corpuscular Hemoglobin Concent 33.3 g/dl Platelet Count 290 K/uL Mean Platelet Volume 10.9 fL Neutrophils (%) (Auto) 47.4 % Lymphocytes (%) (Auto) 40.1 % Monocytes (%) (Auto) 10.5 % Eosinophils (%) (Auto) 0.7 % Basophils (%) (Auto) 0.4 % Neutrophils # (Auto) 7.02 K/uL Lymphocytes # (Auto) 5.94 K/uL Monocytes # (Auto) 1.55 K/uL Eosinophils # (Auto) 0.10 K/uL Basophils # (Auto) 0.06 K/uL RDW Standard Deviation 55.3 fL RDW Coefficient of Variation 16.0 % Immature Granulocyte % (Auto) 0.9 % Immature Granulocyte # (Auto) 0.14 K/uL Smudge Cells PRESENT Blood Smear Review Prothrombin Time 10.8 SECONDS Prothromb Time International Ratio 1.0 Activated Partial Thromboplast Time 28.0 SECONDS Partial Thromboplastin Ratio 1.1 Sodium Level 139 mmol/L Potassium Level 4.4 mmol/L Chloride Level 108 mmol/L Carbon Dioxide Level 23 mmol/L Anion Gap 8.0 mmol/L Blood Urea Nitrogen 94 mg/dl Creatinine 1.70 mg/dl Est Creatinine Clear Calc Drug Dose 20.6 ml/min Estimated GFR () 30.9 Estimated GFR (Non- 26.6 BUN/Creatinine Ratio 55.2 Random Glucose 37 mg/dl Calcium Level 8.8 mg/dl Magnesium Level 1.9 mg/dl Total Bilirubin 0.4 mg/dl Aspartate Amino Transf (AST/SGOT) 62 U/L Alanine Aminotransferase (ALT/SGPT) 51 U/L Alkaline Phosphatase 93 U/L Troponin I 0.018 ng/ml C-Reactive Protein 1.28 mg/dl Pro-B-Type Natriuretic Peptide 2578 pg/ml Total Protein 6.7 gm/dl Albumin 2.8 gm/dl Globulin 3.9 gm/dl Albumin/Globulin Ratio 0.7 Procalcitonin 0.92 ng/mL Thyroid Stimulating Hormone (TSH) 2.590 uIu/ml Digoxin Level 1.3 ng/ml Urine Color DK YELLOW Urine Appearance TURBID Urine pH 5.0 Urine Specific [place] 1.015 Urine Protein TRACE Urine Glucose (UA) NEG Urine Ketones NEG Urine Occult Blood TRACE Urine Nitrite NEG Urine Bilirubin NEG Urine Urobilinogen NEG Urine Leukocyte Esterase LARGE Urine WBC (Auto) >30 /hpf Urine RBC (Auto) 0-4 /hpf Urine Hyaline Casts (Auto) 1-5 /lpf Urine Epithelial Cells (Auto) 5-10 /lpf Urine Bacteria (Auto) NEG Urine Pathogenic Casts /lpf Urine Yeast (Auto) BUD W/ HYPHAE Lactic Acid Level 1.0 mmol/L Bedside Glucose 82 mg/dl Test 01/01/17 03:30 01/01/17 03:59 01/01/17 05:45 01/01/17 07:54 Bedside Glucose 32 mg/dl 147 mg/dl 131 mg/dl White Blood Count 12.16 K/uL Red Blood Count 2.55 M/uL Hemoglobin 8.0 g/dL Hematocrit 24.1 % Mean Corpuscular Volume 94.5 fL Mean Corpuscular Hemoglobin 31.4 pg Mean Corpuscular Hemoglobin Concent 33.2 g/dl RDW Standard Deviation 53.9 fL RDW Coefficient of Variation 15.7 % Platelet Count 255 K/uL Mean Platelet Volume 10.3 fL Sodium Level 139 mmol/L Potassium Level 4.2 mmol/L Chloride Level 109 mmol/L Carbon Dioxide Level 21 mmol/L Anion Gap 9.0 mmol/L Blood Urea Nitrogen 98 mg/dl Creatinine 1.80 mg/dl Est Creatinine Clear Calc Drug Dose 18.8 ml/min Estimated GFR () 28.8 Estimated GFR (Non- 24.9 BUN/Creatinine Ratio 54.6 Random Glucose 21 mg/dl Estimated Average Glucose 91 mg/dl Hemoglobin A1c 4.8 % Calcium Level 8.0 mg/dl Total Bilirubin 0.8 mg/dl Aspartate Amino Transf (AST/SGOT) 216 U/L Alanine Aminotransferase (ALT/SGPT) 117 U/L Alkaline Phosphatase 96 U/L Total Protein 5.8 gm/dl Albumin 2.5 gm/dl Globulin 3.3 gm/dl Albumin/Globulin Ratio 0.8 Test 01/01/17 11:07 01/01/17 11:48 01/01/17 12:54 01/01/17 14:00 Bedside Glucose 43 mg/dl 46 mg/dl 66 mg/dl 51 mg/dl Test 01/01/17 14:34 Bedside Glucose 74 mg/dl Assessment and Plan 86F with a PMHx of Afib, DM2 (glipizide controlled) presents with a one day history of weakness and acute onset leg swelling. Chest X-ray was clear. Patient's was also found to have low blood sugar which was corrected in the ER. WBC was elevated, normal lactate, no AMS - pt is unlikely septic. Unclear whether infection in legs or urine, will wait for procalcitonine, CRP, blood and urine cultures to come back before starting Abx. BMP was also elevated at 2500, unknown if this is pt's baseline. Ordered echo to r/o R heart failure and dopplers to rule out DVT. LE Swelling 2/2 Cellulitis vs Fluid overload vs DVT. - Pt has stasis dermatitis in the LE and they are edematous, markedly worsened from prior admission. BMP was also elevated, 2500, no recent number to compare baseline. - Pt has been sitting with legs not elevated at home, in hospital pt will have legs elevated. - Follow up blood cultures for possible cellulitis. - Cont Zosyn, Procalcitonin and CRP mildly elev - Echocardiogram ordered for possible R heart failure - F/u lower extremity dopplers, if negative recommend compression stockings on pt. - On discharge recommend a remind for family to have pt sit with legs elevated at least 20 min every day. Pressure ulcer of right and left buttocks stage 3 - EHOB mattress, WOCN consult Catheter related UTI - Follow up urine culture. Acute Renal Failure (Creatinine 1.7 on admission, baseline is <1.0) - According to daughter urine output was low x 1 day. Careful not to fluid overload patient -> she developed pulmonary edema last visit. - On exam in the ER pt has a najera and is draining concentrated urine. - Pt is eating and drinking well, unknown whether we want to start fluids. - Monitor I&Os. - hold Lasix, no fluids at present. Hypoglycemia in the ER 2/2 DM2 - Blood sugar was 37 in the ER likely due to Glipizide. - Hold Glipizide, recommend hold on discharge as well. Start on D5 fluids and switch to regular diet AFib - Pt has no cardiac symptoms. EKG unchanged from previous admission. Continue home meds, Diltiazem 120mg daily, digoxin 125mcg, Aspirin 81mg daily. DVT Proph: Lovenox SQ daily.
--- NOTE | 2017-01-01 15:55 | ECHOCARDIOGRAM REPORT ---
*NOTICE TO RECEIVING REPUBLICAN AGENCY This information is strictly Confidential and protected under [place] law. [place] law prohibits you from making any further disclosure of this information unless further disclosure is expressly permitted by the written consent of the person to whom it pertains or is authorized by law. A general authorization for the release of medical or other information is not sufficient for this purpose. Hospital accepts no responsibility if the information is made available to any other person, INCLUDING THE PATIENT. Interpretation Summary * Name: GERSON ORTEGA Study Date: 01/01/2017 01:48 PM BP: 92/47 mmHg * Patient Location: [facility] HR: 49 * : 1930 (M/d/yyyy) Gender: Female Height: 68 in * Age: 86 yrs Ethnicity: [place] Weight: 123 lb * Ordering Physician: Jordan Driscoll * Referring Physician: Self, Referred * Performed By: Truong Baker RCS * * Reason For Study: LE Swelling * BSA: 1.7 m2 * -- Conclusions -- * 1. Normal left ventricular size and systolic function. EF 65-70%. No regional wall motion abnormalities. No significant left ventricular hypertrophy. * 2. Mildly dilated right ventricle with normal systolic function. * 3. Moderate biatrial dilation. * 4. Aortic valve sclerosis moderate, without significant aortic valvular stenosis. * 5. At least moderate tricuspid regurgitation. * 6. There is mild mitral regurgitation. * 7. Color flow suggests ASD, however it is not well visualized on 2D imaging. * 8. No prior study available for comparison. Procedure Details * A complete two-dimensional transthoracic echocardiogram was performed (2D, M-mode, Doppler and color flow Doppler). * Patient in supine/sitting position for imagining. Left Ventricle * Normal left ventricular size and systolic function. EF 65-70%. No regional wall motion abnormalities. No significant left ventricular hypertrophy. Right Ventricle * Mildly dilated right ventricle with normal systolic function. Atria * The left atrium is moderately dilated. * The right atrium is moderately dilated. * Color flow suggests ASD, however it is not well visualized. Mitral Valve * There is moderate mitral annular calcification. * The mitral valve leaflets appear thickened, but open well. * No significant mitral valve stenosis. * There is mild mitral regurgitation. Tricuspid Valve * The tricuspid valve anatomy is normal. * There is no tricuspid stenosis. * At least moderate tricuspid regurgitation. Aortic Valve * The aortic valve is trileaflet. * Aortic valve sclerosis moderate, without significant aortic valvular stenosis. * Heavy, focal calcification involving the left coronary cusp. * There is no significant aortic regurgitation. Pulmonic Valve * The pulmonary valve is inadequately visualized, but the Doppler data is adequate for interpretation. * There is no pulmonic valvular stenosis. * Mild pulmonic valvular regurgitation. Great Vessels * The aortic root is normal size. Pericardium/Pleural * There is no pericardial effusion. Great Vessels * IVC not visualized. MMode 2D Measurements and Calculations IVSd 0.87 cm IVSs 1.1 cm LVIDd 4.6 cm LVIDs 2.9 cm LVPWd 0.87 cm LVPWs 1.1 cm IVS/LVPW 1.0 FS 36.7 % EDV(Teich) 97.4 ml ESV(Teich) 32.6 ml EF(Teich) 66.5 % EDV(cubed) 97.5 ml ESV(cubed) 24.8 ml EF(cubed) 74.6 % % IVS thick 21.3 % % LVPW thick 29.6 % LV mass(C)d 131.5 grams LV mass(C)dI 79.1 grams/m\S\2 LV mass(C)s 90.0 grams LV mass(C)sI 54.1 grams/m\S\2 CO(Teich) 5.4 l/min CI(Teich) 3.3 l/min/m\S\2 SV(Teich) 64.8 ml SI(Teich) 39.0 ml/m\S\2 CO(cubed) 6.1 l/min CI(cubed) 3.7 l/min/m\S\2 SV(cubed) 72.7 ml SI(cubed) 43.7 ml/m\S\2 Ao root diam 3.2 cm Ao root area 8.2 cm\S\2 ACS 2.0 cm LA dimension 5.0 cm LA/Ao 1.6 LVOT diam 2.0 cm LVOT area 3.2 cm\S\2 LVAd ap4 28.2 cm\S\2 LVLd ap4 7.8 cm EDV(MOD-sp4) 84.0 ml LVAs ap4 13.3 cm\S\2 LVLs ap4 6.5 cm ESV(MOD-sp4) 23.0 ml EF(MOD-sp4) 72.6 % LVAd ap2 28.5 cm\S\2 LVLd ap2 7.9 cm EDV(MOD-sp2) 85.0 ml LVAs ap2 12.9 cm\S\2 LVLs ap2 6.1 cm ESV(MOD-sp2) 23.0 ml EF(MOD-sp2) 72.9 % CO(MOD-sp4) 5.1 l/min CI(MOD-sp4) 3.1 l/min/m\S\2 SV(MOD-sp4) 61.0 ml SI(MOD-sp4) 36.7 ml/m\S\2 CO(MOD-sp2) 5.2 l/min CI(MOD-sp2) 3.1 l/min/m\S\2 SV(MOD-sp2) 62.0 ml SI(MOD-sp2) 37.3 ml/m\S\2 Doppler Measurements and Calculations MV E max judith 127.2 cm/sec MV P1/2t max judith 130.3 cm/sec MV P1/2t 86.6 msec MVA(P1/2t) 2.5 cm\S\2 MV dec slope 440.7 cm/sec\S\2 MV dec time 0.28 sec Ao V2 max 194.8 cm/sec Ao max PG 15.2 mmHg Ao max PG (full) 10.4 mmHg Ao V2 mean 120.4 cm/sec Ao mean PG 6.9 mmHg Ao V2 VTI 44.2 cm NEL(V,A) 1.8 cm\S\2 NEL(V,D) 1.8 cm\S\2 LV V1 max PG 4.8 mmHg LV V1 max 109.7 cm/sec SV(Ao) 362.5 ml SI(Ao) 218.1 ml/m\S\2 TV E max judith 65.8 cm/sec PA V2 max 124.1 cm/sec PA max PG 6.2 mmHg TR max judith 270.2 cm/sec
[2017-01-01 16:00] VITALS: O2SAT 98
[2017-01-01] MEDS ORDERED: DIGOXIN 0.125 MG TAB PO SCH (16:00)
[2017-01-01] MEDS: DIGOXIN 0.125 MG TAB PO SCH (16:00)
[2017-01-01] MEDS ORDERED: PIPERACILL/TAZOBAC CONSULT ACTIVE PRN (16:00)
[2017-01-01] MEDS ORDERED: PIPERACILL/TAZOBAC IV 3.375 GM in DEXTROSE 5% 100ML IV ONE (16:30)
[2017-01-01 16:35] VITALS: BP 108/51; PULSE 49
[2017-01-01] MEDS: BOOST PLUS VANILLA PO SCH ×2 (17:00)
[2017-01-02] MEDS: PIPERACILL/TAZOBAC IV 3.375 GM in DEXTROSE 5% 100ML IV SCH ×2 (00:17→12:29)
[2017-01-02 00:24] VITALS: BP 101/39; PULSE 58; TEMP 36.8; O2SAT 98
[2017-01-02] MEDS: D5W AND NSS 1,000 ML IV SCH ×2 (01:57→16:33)
[2017-01-02 06:52] LABS: HEMATOCRIT 24.4 % (37-47); MEAN CELL VOLUME 94.2 fL (80-100); MEAN CORPUSCULAR HEMOGLOBIN 31.7 pg (25-34); MEAN CORPUSCULAR HGB CONC 33.6 g/dl (32-36); MEAN PLATELET VOLUME 10.3 fL (7.4-10.4); PLATELET COUNT 213 K/uL (130-400); RED BLOOD COUNT 2.59 M/uL (4.2-5.4); WHITE BLOOD COUNT 10.52 K/uL (4.8-10.8)
[2017-01-02] MEDS: DEXTROSE 50% 50 ML SYR IV PRN (08:13)
[2017-01-02] MEDS: EUCERIN CR 120 GM JAR EXT SCH ×2 (08:18→21:07)
[2017-01-02] MEDS: DILTIAZEM HCL 120 MG EXT REL CAP PO SCH (08:24)
[2017-01-02] MEDS: BOOST PLUS VANILLA PO SCH ×6 (08:25→17:10)
[2017-01-02] MEDS: ASPIRIN 81 MG ECTAB PO SCH (08:25)
[2017-01-02] MEDS: CHOLECALCIFEROL 1000 INTER.UNIT TAB PO SCH (08:25)
[2017-01-02 08:34] VITALS: BP 103/50; PULSE 66; TEMP 36.6; O2SAT 92
[2017-01-02 15:50] VITALS: BP 88/48; PULSE 63; TEMP 36.8; O2SAT 97
[2017-01-02 16:00] VITALS: O2SAT 92
[2017-01-02] MEDS: DIGOXIN 0.125 MG TAB PO SCH (16:00)
[2017-01-02 23:17] VITALS: BP 104/59; PULSE 59; TEMP 37.1; O2SAT 98
[2017-01-03] MEDS: PIPERACILL/TAZOBAC IV 3.375 GM in DEXTROSE 5% 100ML IV SCH ×3 (00:20→20:48)
[2017-01-03] MEDS: D5W AND NSS 1,000 ML IV SCH (05:21)
[2017-01-03 06:46] LABS: HEMATOCRIT 24.9 % (37-47); MEAN CELL VOLUME 95.4 fL (80-100); MEAN CORPUSCULAR HEMOGLOBIN 32.2 pg (25-34); MEAN CORPUSCULAR HGB CONC 33.7 g/dl (32-36); MEAN PLATELET VOLUME 10.9 fL (7.4-10.4); PLATELET COUNT 222 K/uL (130-400); RED BLOOD COUNT 2.61 M/uL (4.2-5.4); WHITE BLOOD COUNT 10.86 K/uL (4.8-10.8)
[2017-01-03 08:00] VITALS: BP 106/59; PULSE 73; TEMP 36.6; O2SAT 98
[2017-01-03] MEDS: ASPIRIN 81 MG ECTAB PO SCH (08:16)
[2017-01-03] MEDS: DILTIAZEM HCL 120 MG EXT REL CAP PO SCH (08:18)
[2017-01-03] MEDS: CHOLECALCIFEROL 1000 INTER.UNIT TAB PO SCH (08:18)
[2017-01-03] MEDS: BOOST PLUS VANILLA PO SCH ×6 (08:19→15:36)
[2017-01-03] MEDS: EUCERIN CR 120 GM JAR EXT SCH ×2 (08:21→20:49)
[2017-01-03 09:39] LABS: BUN/CREATININE RATIO 61.1 (10-20); CALCIUM 7.9 mg/dl (8.5-10.1); CREATININE 1.4 mg/dl (0.60-1.20); POTASSIUM 4.3 mmol/L (3.5-5.1)
--- NOTE | 2017-01-03 10:48 | Progress Note ---
Subjective Date of Service: Jan 03, 2017. Subjective Pt evaluation today including: conversation w/ patient, conversation w/ family , physical exam, chart review, lab review, review of studies, review of inpatient medication list Pt resting comfortably in bed Denies and pain or discomfort Eating breakfast Spoke with daughter on phone, questions answered Problem List Medical Problems: (1) Acute renal failure Status: Acute (2) Cellulitis of both lower extremities Status: Acute (3) Confusion Status: Acute (4) Dehydration Status: Acute (5) Hypoglycemia Status: Acute (6) Hypokalemia Status: Acute (7) Hypomagnesemia Status: Acute (8) Weakness Status: Acute Review of Systems Constitutional: No chills, No fever Respiratory: No cough, No dyspnea on exertion, No shortness of breath, No sputum, No wheezing Cardiac: No chest pain, No orthopnea Abdomen: No constipation, No diarrhea, No nausea, No pain, No vomiting Musculoskeletal: No joint pain, No muscle pain Female : No dysuria, No urinary frequency Psychiatric: No anhedonism, No depression symptoms Objective Vital Signs Date Time Temp Pulse Resp B/P Pulse Ox O2 Delivery O2 Flow Rate FiO2 01/03/17 08:00 36.6 73 20 106/59 98 Room Air 01/03/17 00:07 Room Air 01/02/17 23:17 37.1 59 19 104/59 98 Room Air 01/02/17 16:00 92 Room Air 01/02/17 16:00 56 01/02/17 15:50 36.8 63 18 88/48 97 Room Air Physical Exam General Appearance: WD/WN, no apparent distress, + thin Eyes: normal inspection, PERRL Neck: supple, no adenopathy Respiratory/Chest: lungs clear, normal breath sounds Cardiovascular: no edema, no gallop Abdomen: non tender, soft Extremities: non-tender, + pertinent finding (stasis dermatitis) Neurologic/Psychiatric: alert, oriented x 3 Laboratory Results Last 24 Hours Test 01/02/17 11:44 01/02/17 16:35 01/02/17 20:22 01/03/17 00:19 Bedside Glucose 75 mg/dl 147 mg/dl 240 mg/dl 165 mg/dl Test 01/03/17 05:21 01/03/17 06:02 01/03/17 07:54 01/03/17 08:55 Bedside Glucose 121 mg/dl 124 mg/dl White Blood Count 10.86 K/uL Red Blood Count 2.61 M/uL Hemoglobin 8.4 g/dL Hematocrit 24.9 % Mean Corpuscular Volume 95.4 fL Mean Corpuscular Hemoglobin 32.2 pg Mean Corpuscular Hemoglobin Concent 33.7 g/dl RDW Standard Deviation 54.8 fL RDW Coefficient of Variation 16.0 % Platelet Count 222 K/uL Mean Platelet Volume 10.9 fL Sodium Level 139 mmol/L Potassium Level 4.3 mmol/L Chloride Level 112 mmol/L Carbon Dioxide Level 22 mmol/L Anion Gap 5.0 mmol/L Blood Urea Nitrogen 86 mg/dl Creatinine 1.40 mg/dl Est Creatinine Clear Calc Drug Dose 28.6 ml/min Estimated GFR () 39.1 Estimated GFR (Non- 33.7 BUN/Creatinine Ratio 61.1 Random Glucose 131 mg/dl Calcium Level 7.9 mg/dl Assessment and Plan 86F with a PMHx of Afib, DM2 (glipizide controlled) presents with a one day history of weakness and acute onset leg swelling. Patient's was also found to have low blood sugar which was corrected in the ER. WBC was elevated, normal lactate, no AMS - pt is unlikely septic. BMP was also elevated at 2500, unknown if this is pt's baseline. Ordered echo to r/o R heart failure and dopplers to rule out DVT. LE Swelling - Pt likely has stasis dermatitis in the LE and they are edematous, markedly worsened from prior admission. BMP was also elevated, 2500, no recent number to compare baseline. CXR unremarkable - Pt has been sitting with legs not elevated at home, in hospital pt will have legs elevated. - Blood cultures neg - Lower extremity dopplers neg for DVT - Echocardiogram ordered for possible R heart failure - Normal left ventricular size and systolic function. EF 65-70%. No regional wall motion abnormalities - Was initially placed on zosyn but dced as unlikely infection present - On discharge recommend legs elevated at least 20 min every day. - Awaiting PT/OT, cant likely DC home in next 1-2 days Pressure ulcer of right and left buttocks stage 3 - EHOB mattress, WOCN consult Catheter related UTI - urine culture neg Acute Renal Failure (Creatinine 1.7 on admission, baseline is <1.0) - According to daughter urine output was low x 1 day. Careful not to fluid overload patient -> she developed pulmonary edema last visit. - On exam in the ER pt has a najera and is draining concentrated urine. - Pt is eating and drinking well - Monitor I&Os. - hold Lasix Hypoglycemia in the ER 2/2 DM2 - Blood sugar was 37 in the ER likely due to Glipizide. - STOP Glipizide, recommend to not continue on discharge as well. Continue D5 fluids until glucose stabilizes and switch to regular diet AFib - Pt has no cardiac symptoms. EKG unchanged from previous admission. Continue home meds, diltiazem 120mg daily, digoxin 125mcg, aspirin 81mg daily. DVT Proph: Lovenox SQ daily. Pt is FULL CODE
--- NOTE | 2017-01-03 11:46 | Progress Note ---
Subjective Date of Service: Jan 02, 2017. Subjective Pt evaluation today including: conversation w/ patient, conversation w/ family , physical exam, chart review, lab review, review of studies, review of inpatient medication list Problem List Medical Problems: (1) Acute renal failure Status: Acute (2) Cellulitis of both lower extremities Status: Acute (3) Confusion Status: Acute (4) Dehydration Status: Acute (5) Hypoglycemia Status: Acute (6) Hypokalemia Status: Acute (7) Hypomagnesemia Status: Acute (8) Weakness Status: Acute Review of Systems Constitutional: + weakness, No chills, No fever Respiratory: No cough, No dyspnea on exertion, No shortness of breath, No sputum, No wheezing Cardiac: No chest pain, No orthopnea Abdomen: No constipation, No diarrhea, No nausea, No pain Musculoskeletal: No joint pain, No muscle pain Female : No dysuria, No urinary frequency Objective Vital Signs Date Time Temp Pulse Resp B/P Pulse Ox O2 Delivery O2 Flow Rate FiO2 01/03/17 08:00 36.6 73 20 106/59 98 Room Air 01/03/17 08:00 Room Air 01/03/17 00:07 Room Air 01/02/17 23:17 37.1 59 19 104/59 98 Room Air 01/02/17 16:00 92 Room Air 01/02/17 16:00 56 01/02/17 15:50 36.8 63 18 88/48 97 Room Air Physical Exam General Appearance: WD/WN, no apparent distress Neck: supple, no adenopathy Respiratory/Chest: lungs clear, normal breath sounds Cardiovascular: no edema, no gallop Abdomen: non tender, soft Neurologic/Psychiatric: alert, normal mood/affect Laboratory Results Last 24 Hours Test 01/02/17 16:35 01/02/17 20:22 01/03/17 00:19 01/03/17 05:21 Bedside Glucose 147 mg/dl 240 mg/dl 165 mg/dl 121 mg/dl Test 01/03/17 06:02 01/03/17 07:54 01/03/17 08:55 White Blood Count 10.86 K/uL Red Blood Count 2.61 M/uL Hemoglobin 8.4 g/dL Hematocrit 24.9 % Mean Corpuscular Volume 95.4 fL Mean Corpuscular Hemoglobin 32.2 pg Mean Corpuscular Hemoglobin Concent 33.7 g/dl RDW Standard Deviation 54.8 fL RDW Coefficient of Variation 16.0 % Platelet Count 222 K/uL Mean Platelet Volume 10.9 fL Bedside Glucose 124 mg/dl Sodium Level 139 mmol/L Potassium Level 4.3 mmol/L Chloride Level 112 mmol/L Carbon Dioxide Level 22 mmol/L Anion Gap 5.0 mmol/L Blood Urea Nitrogen 86 mg/dl Creatinine 1.40 mg/dl Est Creatinine Clear Calc Drug Dose 28.6 ml/min Estimated GFR () 39.1 Estimated GFR (Non- 33.7 BUN/Creatinine Ratio 61.1 Random Glucose 131 mg/dl Calcium Level 7.9 mg/dl Assessment and Plan 86F with a PMHx of Afib, DM2 (glipizide controlled) presents with a one day history of weakness and acute onset leg swelling. Chest X-ray was clear. Patient's was also found to have low blood sugar which was corrected in the ER. WBC was elevated, normal lactate, no AMS - pt is unlikely septic. Unclear whether infection in legs or urine, will wait for procalcitonine, CRP, blood and urine cultures to come back before starting Abx. BMP was also elevated at 2500, unknown if this is pt's baseline. Ordered echo to r/o R heart failure and dopplers to rule out DVT. LE Swelling 2/2 Cellulitis vs Fluid overload vs DVT. - Pt has stasis dermatitis in the LE and they are edematous, markedly worsened from prior admission. BMP was also elevated, 2500, no recent number to compare baseline. - Pt has been sitting with legs not elevated at home, in hospital pt will have legs elevated. - Follow up blood cultures for possible cellulitis. - Cont Zosyn, Procalcitonin and CRP mildly elev - Echocardiogram ordered for possible R heart failure - F/u lower extremity dopplers, if negative recommend compression stockings on pt. - On discharge recommend a remind for family to have pt sit with legs elevated at least 20 min every day. Pressure ulcer of right and left buttocks stage 3 - EHOB mattress, WOCN consult Catheter related UTI - Follow up urine culture. Acute Renal Failure (Creatinine 1.7 on admission, baseline is <1.0) - According to daughter urine output was low x 1 day. Careful not to fluid overload patient -> she developed pulmonary edema last visit. - On exam in the ER pt has a najera and is draining concentrated urine. - Pt is eating and drinking well, unknown whether we want to start fluids. - Monitor I&Os. - hold Lasix, no fluids at present. Hypoglycemia in the ER 2/2 DM2 - Blood sugar was 37 in the ER likely due to Glipizide. - Hold Glipizide, recommend hold on discharge as well. Start on D5 fluids and switch to regular diet AFib - Pt has no cardiac symptoms. EKG unchanged from previous admission. Continue home meds, Diltiazem 120mg daily, digoxin 125mcg, Aspirin 81mg daily. DVT Proph: Lovenox SQ daily.
[2017-01-03] MEDS: DIGOXIN 0.125 MG TAB PO SCH (15:36)
[2017-01-03 16:00] VITALS: O2SAT 98
[2017-01-03 16:46] VITALS: BP 100/50; PULSE 44; TEMP 36.8; O2SAT 98
[2017-01-04] VITALS: O2SAT 98
[2017-01-04 00:13] VITALS: BP 108/52; PULSE 59; TEMP 36.3; O2SAT 92
[2017-01-04] MEDS: PIPERACILL/TAZOBAC IV 3.375 GM in DEXTROSE 5% 100ML IV SCH ×2 (04:42→12:14)
[2017-01-04 07:35] LABS: BASO % 0.5 %; BASO ABS # 0.05 K/uL (0-0.2); EOS % 2.3 %; HEMATOCRIT 26.3 % (37-47); IG% 0.5 %; LYMPH % 37.9 %; LYMPH ABS # 3.68 K/uL (1.2-3.4); MEAN CELL VOLUME 97.4 fL (80-100); MEAN CORPUSCULAR HEMOGLOBIN 31.5 pg (25-34); MEAN CORPUSCULAR HGB CONC 32.3 g/dl (32-36); MEAN PLATELET VOLUME 10.7 fL (7.4-10.4); MONO % 10.8 %; PLATELET COUNT 209 K/uL (130-400); WHITE BLOOD COUNT 9.72 K/uL (4.8-10.8)
[2017-01-04 07:54] VITALS: BP 119/67; PULSE 64; TEMP 36.7; O2SAT 99
[2017-01-04 08:13] LABS: BUN/CREATININE RATIO 57.4 (10-20); CALCIUM 8.1 mg/dl (8.5-10.1); CREATININE 1.3 mg/dl (0.60-1.20); POTASSIUM 4.6 mmol/L (3.5-5.1)
[2017-01-04] MEDS: EUCERIN CR 120 GM JAR EXT SCH ×2 (08:34→20:44)
[2017-01-04] MEDS: BOOST PLUS VANILLA PO SCH ×6 (08:34→17:13)
[2017-01-04] MEDS: ASPIRIN 81 MG ECTAB PO SCH (08:34)
[2017-01-04] MEDS: CHOLECALCIFEROL 1000 INTER.UNIT TAB PO SCH (08:35)
[2017-01-04] MEDS: DILTIAZEM HCL 120 MG EXT REL CAP PO SCH (08:35)
[2017-01-04 08:46] LABS: COMPLETE YES
[2017-01-04 15:31] VITALS: BP 107/60; PULSE 63; TEMP 36.6; O2SAT 99
[2017-01-04] MEDS: DIGOXIN 0.125 MG TAB PO SCH (16:00)
--- NOTE | 2017-01-04 16:35 | Family Medicine Progress Note ---
Progress Note Date of Service Jan 04, 2017. Subjective Pt evaluation today including: conversation w/ patient, conversation w/ family , physical exam, chart review, lab review Pain: deniesv pain Voiding: najera catheter in place 86 y/o F with PMH of Atrial fib, T2DM, sacral decubitus ulcers, chronic stasis dermatitis admitted with lower extremity selling concerning for cellulitis. Feels better, denies any pain in lower extremities, fevers/chills, CP/SOB. Thinks her legs look better compared to admission Constitutional: No chills, No fever ENT: + hearing loss Respiratory: No cough, No shortness of breath, No sputum, No wheezing Cardiovascular: No chest pain Abdomen: No diarrhea, No nausea, No pain, No vomiting Female : No dysuria Skin: + problem reported (lower extremity swelling with stasis dermatitis) Medications Current Inpatient Medications Medications (Trade) Dose Ordered Sig/Kaylee Route Start Time Stop Time Status Last Admin Dose Admin Acetaminophen (Tylenol Tab) 650 mg Q4H PRN PO 12/31/16 20:15 01/30/17 20:14 Al Hydrox/Mg Hydrox/Simethicone (Maalox Max Susp) 15 ml Q4H PRN PO 12/31/16 20:15 01/30/17 20:14 Magnesium Hydroxide (Milk Of Magnesia Susp) 30 ml Q6H PRN PO 12/31/16 20:15 01/30/17 20:14 Polyethylene (Miralax Powder Packet) 17 gm DAILY PRN PO 12/31/16 20:30 01/30/17 20:29 Ondansetron HCl (Zofran Inj) 4 mg Q6H PRN IV 12/31/16 20:15 01/30/17 20:14 Aspirin (Ecotrin Tab) 81 mg DAILY PO 01/01/17 08:00 01/31/17 08:59 01/04/17 08:34 81 MG Cholecalciferol (Vitamin D Tab) 2,000 inter.unit DAILY PO 01/01/17 08:00 01/31/17 08:59 01/04/17 08:35 2,000 INTER.UNIT Diltiazem HCl (TIAzac CAP) 120 mg DAILY PO 01/01/17 08:00 01/31/17 08:59 01/04/17 08:35 120 MG Glucose (Glucose 40% Gel) 15-30 GRAMS 15 GRAMS... UD PRN PO 12/31/16 21:15 01/30/17 21:14 Glucose (Glucose Chew Tab) 4-8 Tablets 4 Tabl... UD PRN PO 12/31/16 21:15 01/30/17 21:14 01/01/17 17:15 4 TABS Dextrose (Dextrose 50% 50ML Syringe) 25-50ML OF 50% DW IV FOR... UD PRN IV 12/31/16 21:15 01/30/17 21:14 01/02/17 08:13 50 ML Glucagon (Glucagon Inj) 1 mg UD PRN SQ 12/31/16 21:15 01/30/17 21:14 Digoxin (Lanoxin Tab) 0.125 mg DAILY@1600 PO 01/01/17 16:00 01/31/17 15:59 01/03/17 15:36 0.125 MG Multi-Ingredient Ointment (Eucerin Unscented Cr) 1 appln BID EXT 01/01/17 12:21 01/31/17 12:20 01/04/17 08:34 1 APPLN Enteral Nutritional Formula (Boost Plus Vanilla) 1 can TIDM PO 01/01/17 17:00 01/31/17 16:59 01/04/17 12:10 1 CAN Piperacillin Sod/ Tazobactam Sod 1 ea 1 ea UD PRN N/A 01/01/17 16:00 01/31/17 15:59 Piperacillin Sod/ Tazobactam Sod/ Dextrose (Zosyn Iv/D5 100ml) 115 ml @ 28.75 mls/ hr Q8@0400,1200,2000 IV 01/03/17 20:00 01/11/17 19:59 01/04/17 12:14 28.75 MLS/HR Objective Vital Signs Date Time Temp Pulse Resp B/P Pulse Ox O2 Delivery O2 Flow Rate FiO2 01/04/17 15:31 36.6 63 16 107/60 99 Room Air 01/04/17 08:00 Room Air 01/04/17 07:54 36.7 64 18 119/67 99 01/04/17 00:13 36.3 59 16 108/52 92 Room Air 01/04/17 00:00 98 Room Air 01/03/17 20:00 Room Air 01/03/17 16:46 36.8 44 16 100/50 98 Room Air Physical Exam General Appearance: WD/WN, no apparent distress, + thin Eyes: normal inspection ENT: + pertinent finding (hearing loss) Neck: supple Respiratory/Chest: chest non-tender, lungs clear, normal breath sounds Cardiovascular: + irregularly irregular Abdomen: normal bowel sounds, non tender, soft Extremities: non-tender, + pedal edema, + swelling Neurologic/Psychiatric: alert, normal mood/affect, oriented x 3 Skin: + pertinent finding (chronic stasis dermatitis, flakiness of skin , non tender to palpation, non erythematous) Laboratory Results 01/04/17 07:12 Red Blood Count 2.70, Mean Corpuscular Volume 97.4, Mean Corpuscular Hemoglobin 31.5, Mean Corpuscular Hemoglobin Concent 32.3, Mean Platelet Volume 10.7, Neutrophils (%) (Auto) 48.0, Lymphocytes (%) (Auto) 37.9, Monocytes (%) (Auto) 10.8, Eosinophils (%) (Auto) 2.3, Basophils (%) (Auto) 0.5, Neutrophils # (Auto ) 4.67, Lymphocytes # (Auto) 3.68, Monocytes # (Auto) 1.05, Eosinophils # (Auto ) 0.22, Basophils # (Auto) 0.05 01/04/17 07:12 Test 01/04/17 07:12 01/04/17 11:31 White Blood Count 9.72 K/uL (4.8-10.8) Red Blood Count 2.70 M/uL (4.2-5.4) Hemoglobin 8.5 g/dL (12.0-16.0) Hematocrit 26.3 % (37-47) Mean Corpuscular Volume 97.4 fL (80-100) Mean Corpuscular Hemoglobin 31.5 pg (25-34) Mean Corpuscular Hemoglobin Concent 32.3 g/dl (32-36) Platelet Count 209 K/uL (130-400) Mean Platelet Volume 10.7 fL (7.4-10.4) Neutrophils (%) (Auto) 48.0 % Lymphocytes (%) (Auto) 37.9 % Monocytes (%) (Auto) 10.8 % Eosinophils (%) (Auto) 2.3 % Basophils (%) (Auto) 0.5 % Neutrophils # (Auto) 4.67 K/uL (1.4-6.5) Lymphocytes # (Auto) 3.68 K/uL (1.2-3.4) Monocytes # (Auto) 1.05 K/uL (0.11-0.59) Eosinophils # (Auto) 0.22 K/uL (0-0.5) Basophils # (Auto) 0.05 K/uL (0-0.2) RDW Standard Deviation 56.5 fL (36.4-46.3) RDW Coefficient of Variation 16.2 % (11.5-14.5) Immature Granulocyte % (Auto) 0.5 % Immature Granulocyte # (Auto) 0.05 K/uL (0.00-0.02) Red Blood Cell Morphology Unremarkable Anion Gap 7.0 mmol/L (3-11) Est Creatinine Clear Calc Drug Dose 30.8 ml/min Estimated GFR () 42.7 Estimated GFR (Non- 36.9 BUN/Creatinine Ratio 57.4 (10-20) Calcium Level 8.1 mg/dl (8.5-10.1) Bedside Glucose 163 mg/dl (70-90) Assessment and Plan 86F with a PMHx of Afib, DM2 , chronic stasis dermatitis admitted with lower extremity swelling concerning for cellulitis. Lower extremity swelling :? cellulitis in setting of chronic venous stasis - Venous Doppler of Lower extremities - negative for DVT - BC negative so far - Tracy stated 12/31. will switch to PO Augmentin and Bactrim Catheter associated UTI: - UC positive for Alyssa - Patient is asymptomatic Acute renal failure: - Cr at 1.3 , 1.7 on admission - Monitor Hypoglycemia: T2DM managed with Glipizide ER as an OP- held for now Sacral decubitus ulcer - EHOB mattress - Wound cafe consult- appreciate input Atrial fibrillation: - [id number] vasc of 7 - EKG unchanged from previous admission. - Continue Diltiazem 120mg daily, digoxin 125mcg - Anticoagulation with Aspirin 81mg daily. DVT prophylaxis: Lovenox daily Full code Resident Physician Supervision Note: I was present with Dr. Salcedo during the history and exam. I discussed the case with the resident and agree with the findings and plan as documented in the note. Any exceptions or clarifications are listed here: Clinically, her LE cellulitis appears to be improving. PT consult reviewed and recommends inpatient rehabilitation; will coordinate with case management. I would not restart glipizide, as hypoglycemia is clearly more of a problem for this particular patient than hyperglycemia. Documented By: Florian Wade
[2017-01-04] MEDS: AMOXICILLIN/CLAVULANATE TAB 875 MG TAB PO SCH (20:44)
[2017-01-04] MEDS: SULFAMETHOXAZOLE/TRIMETHOPRIM DS 800/160MG TAB PO SCH (20:45)
[2017-01-05 00:17] VITALS: BP 117/47; PULSE 55; TEMP 37.2; O2SAT 98
[2017-01-05] MEDS: EUCERIN CR 120 GM JAR EXT SCH ×2 (08:10→20:25)
[2017-01-05] MEDS: CHOLECALCIFEROL 1000 INTER.UNIT TAB PO SCH (08:10)
[2017-01-05] MEDS: SULFAMETHOXAZOLE/TRIMETHOPRIM DS 800/160MG TAB PO SCH (08:10)
[2017-01-05] MEDS: AMOXICILLIN/CLAVULANATE TAB 875 MG TAB PO SCH ×2 (08:10→17:12)
[2017-01-05 08:11] LABS: HEMATOCRIT 25.9 % (37-47); MEAN CELL VOLUME 94.9 fL (80-100); MEAN CORPUSCULAR HEMOGLOBIN 31.9 pg (25-34); MEAN CORPUSCULAR HGB CONC 33.6 g/dl (32-36); MEAN PLATELET VOLUME 10.4 fL (7.4-10.4); PLATELET COUNT 217 K/uL (130-400); RED BLOOD COUNT 2.73 M/uL (4.2-5.4); WHITE BLOOD COUNT 9.98 K/uL (4.8-10.8)
[2017-01-05] MEDS: BOOST PLUS VANILLA PO SCH ×6 (08:11→17:36)
[2017-01-05] MEDS: ASPIRIN 81 MG ECTAB PO SCH (08:11)
[2017-01-05] MEDS: DILTIAZEM HCL 120 MG EXT REL CAP PO SCH (08:18)
[2017-01-05 08:22] VITALS: BP 128/62; PULSE 66; TEMP 37; O2SAT 100
[2017-01-05 08:40] LABS: BUN/CREATININE RATIO 65.6 (10-20); CALCIUM 8.4 mg/dl (8.5-10.1); POTASSIUM 4.4 mmol/L (3.5-5.1)
[2017-01-05 08:41] LABS: ANISOCYTOSIS PRESENT; BASO % 0.4 %; BASO ABS # 0.04 K/uL (0-0.2); COMPLETE YES; EOS % 2.6 %; IG% 0.5 %; LYMPH % 39.8 %; LYMPH ABS # 3.97 K/uL (1.2-3.4); MONO % 9.9 %; NEUT % 46.8 %; POLYCHROMASIA 1+
--- NOTE | 2017-01-05 12:43 | Clinical Documentation Query ---
Dr. KAUFMAN [facility] : CLINICAL DOCUMENTATION QUERY Patient is an 86 year old female admitted with ?cellulitis, EDY, and "catheter associated UTI". First documentation of the latter finding is on 01/04. Patient was admitted on 12/31, also the date the urine was obtained. Patient noted to have Jennings in place on admission. There is no active treatment for this condition as the patient is noted to be asymptomatic. Please clarify as clinically appropriate as this represents a complication of care. In your clinical opinion is this patient being managed for: ( x) Candidal UTI secondary to indwelling urinary catheter ( ) Other explanation of clinical findings (Please Explain) ( ) Unable to determine (Please Define) ( ) Need to Discuss ( ) Not Agree The medical record reflects the following clinical findings, treatment, and risk factors. Clinical Indicators: As above Treatment: Urine culture. Risk Factors: Antibiotic exposure, gender, age Please clarify and document your clinical opinion in the progress notes and discharge summary. Terms such as "probable", "suspected", "likely", "questionable", "possible", or "still to be ruled out" are acceptable. IF IN AGREEMENT, YOU MUST DOCUMENT ABOVE DIAGNOSTIC STATEMENT IN DAILY PROGRESS NOTES AND DISCHARGE SUMMARY. This document is not part of the patient's record. Thank You, Derrick Allen RN [phone]
--- NOTE | 2017-01-05 12:44 | Clinical Documentation Query ---
JOYCELYN Abdullahi : CLINICAL DOCUMENTATION QUERY Patient is an 86 year old female admitted with ?cellulitis, EDY, and "catheter associated UTI". First documentation of this finding is on 01/04. Patient was admitted on 12/31, also the date the urine was obtained. Patient noted to have Jennings in place on admission. There is no active treatment for this condition as the patient is noted to be asymptomatic. Please clarify as clinically appropriate as this represents a complication of care. In your clinical opinion is this patient being managed for: ( ) Candidal UTI secondary to indwelling urinary catheter ( ) Other explanation of clinical findings (Please Explain) ( ) Unable to determine (Please Define) ( ) Need to Discuss ( X) Not Agree It is asymptomatic and not being treated. I will clarify in my attending note. The medical record reflects the following clinical findings, treatment, and risk factors. Clinical Indicators: As above Treatment: Urine culture. Risk Factors: Antibiotic exposure, gender, age Please clarify and document your clinical opinion in the progress notes and discharge summary. Terms such as "probable", "suspected", "likely", "questionable", "possible", or "still to be ruled out" are acceptable. IF IN AGREEMENT, YOU MUST DOCUMENT ABOVE DIAGNOSTIC STATEMENT IN DAILY PROGRESS NOTES AND DISCHARGE SUMMARY. This document is not part of the patient's record. Thank You, Derrick Allen, FIDEL [phone]
[2017-01-05 15:10] VITALS: BP 110/60; PULSE 56; TEMP 36.8; O2SAT 98
--- NOTE | 2017-01-05 15:48 | Family Medicine Progress Note ---
Progress Note Date of Service Jan 05, 2017. Subjective Pt evaluation today including: conversation w/ patient, conversation w/ family , physical exam, chart review, lab review Pain: denies pain Voiding: najera catheter in place 86 y/o F with PMH of Atrial fib, T2DM, sacral decubitus ulcers, chronic stasis dermatitis admitted with lower extremity selling concerning for cellulitis. doing better, denies any pain in lower extremities, fevers/chills, CP/SOB. Constitutional: No chills, No fever ENT: + hearing loss Respiratory: No cough, No shortness of breath, No sputum Cardiovascular: No chest pain Abdomen: No nausea, No pain, No vomiting Musculoskeletal: No joint pain Medications Current Inpatient Medications Medications (Trade) Dose Ordered Sig/Kaylee Route Start Time Stop Time Status Last Admin Dose Admin Acetaminophen (Tylenol Tab) 650 mg Q4H PRN PO 12/31/16 20:15 01/30/17 20:14 Al Hydrox/Mg Hydrox/Simethicone (Maalox Max Susp) 15 ml Q4H PRN PO 12/31/16 20:15 01/30/17 20:14 Magnesium Hydroxide (Milk Of Magnesia Susp) 30 ml Q6H PRN PO 12/31/16 20:15 01/30/17 20:14 Polyethylene (Miralax Powder Packet) 17 gm DAILY PRN PO 12/31/16 20:30 01/30/17 20:29 Ondansetron HCl (Zofran Inj) 4 mg Q6H PRN IV 12/31/16 20:15 01/30/17 20:14 Aspirin (Ecotrin Tab) 81 mg DAILY PO 01/01/17 08:00 01/31/17 08:59 01/05/17 08:11 81 MG Cholecalciferol (Vitamin D Tab) 2,000 inter.unit DAILY PO 01/01/17 08:00 01/31/17 08:59 01/05/17 08:10 2,000 INTER.UNIT Diltiazem HCl (TIAzac CAP) 120 mg DAILY PO 01/01/17 08:00 01/31/17 08:59 01/05/17 08:18 120 MG Glucose (Glucose 40% Gel) 15-30 GRAMS 15 GRAMS... UD PRN PO 12/31/16 21:15 3/25/17 21:14 Glucose (Glucose Chew Tab) 4-8 Tablets 4 Tabl... UD PRN PO 12/31/16 21:15 01/30/17 21:14 01/01/17 17:15 4 TABS Dextrose (Dextrose 50% 50ML Syringe) 25-50ML OF 50% DW IV FOR... UD PRN IV 12/31/16 21:15 01/30/17 21:14 01/02/17 08:13 50 ML Glucagon (Glucagon Inj) 1 mg UD PRN SQ 12/31/16 21:15 01/30/17 21:14 Digoxin (Lanoxin Tab) 0.125 mg DAILY@1600 PO 01/01/17 16:00 01/31/17 15:59 01/03/17 15:36 0.125 MG Multi-Ingredient Ointment (Eucerin Unscented Cr) 1 appln BID EXT 01/01/17 12:21 01/31/17 12:20 01/05/17 08:10 1 APPLN Enteral Nutritional Formula (Boost Plus Vanilla) 1 can TIDM PO 01/01/17 17:00 01/31/17 16:59 01/05/17 12:38 1 CAN Amoxicillin/ Clavulanate Potassium (Augmentin Tab) 875 mg BIDM PO 01/04/17 21:00 01/13/17 20:59 01/05/17 08:10 875 MG Objective Vital Signs Date Time Temp Pulse Resp B/P Pulse Ox O2 Delivery O2 Flow Rate FiO2 01/05/17 15:10 36.8 56 16 110/60 98 Room Air 01/05/17 08:22 37.0 66 20 128/62 100 Room Air 01/05/17 08:00 Room Air 01/05/17 00:17 37.2 55 18 117/47 98 Room Air 01/05/17 00:00 Room Air 01/04/17 16:00 Room Air 01/04/17 16:00 58 Physical Exam General Appearance: WD/WN, no apparent distress, + thin Eyes: normal inspection ENT: normal ENT inspection, + pertinent finding (hearing loss) Neck: supple Respiratory/Chest: lungs clear, normal breath sounds, no respiratory distress Cardiovascular: + irregularly irregular Abdomen: normal bowel sounds, non tender, soft Extremities: + pedal edema, + swelling Neurologic/Psychiatric: alert, normal mood/affect, oriented x 3 Skin: + pertinent finding (non tender, mildly erythematous lower extremities , warm to palpation) Laboratory Results 01/05/17 07:08 Red Blood Count 2.73, Mean Corpuscular Volume 94.9, Mean Corpuscular Hemoglobin 31.9, Mean Corpuscular Hemoglobin Concent 33.6, Mean Platelet Volume 10.4, Neutrophils (%) (Auto) 46.8, Lymphocytes (%) (Auto) 39.8, Monocytes (%) (Auto) 9.9, Eosinophils (%) (Auto) 2.6, Basophils (%) (Auto) 0.4, Neutrophils # (Auto) 4.67, Lymphocytes # (Auto) 3.97, Monocytes # (Auto) 0.99, Eosinophils # (Auto) 0.26, Basophils # (Auto) 0.04 01/05/17 07:08 Test 01/04/17 16:52 01/05/17 07:08 Bedside Glucose 199 mg/dl (70-90) White Blood Count 9.98 K/uL (4.8-10.8) Red Blood Count 2.73 M/uL (4.2-5.4) Hemoglobin 8.7 g/dL (12.0-16.0) Hematocrit 25.9 % (37-47) Mean Corpuscular Volume 94.9 fL (80-100) Mean Corpuscular Hemoglobin 31.9 pg (25-34) Mean Corpuscular Hemoglobin Concent 33.6 g/dl (32-36) Platelet Count 217 K/uL (130-400) Mean Platelet Volume 10.4 fL (7.4-10.4) Neutrophils (%) (Auto) 46.8 % Lymphocytes (%) (Auto) 39.8 % Monocytes (%) (Auto) 9.9 % Eosinophils (%) (Auto) 2.6 % Basophils (%) (Auto) 0.4 % Neutrophils # (Auto) 4.67 K/uL (1.4-6.5) Lymphocytes # (Auto) 3.97 K/uL (1.2-3.4) Monocytes # (Auto) 0.99 K/uL (0.11-0.59) Eosinophils # (Auto) 0.26 K/uL (0-0.5) Basophils # (Auto) 0.04 K/uL (0-0.2) RDW Standard Deviation 55.6 fL (36.4-46.3) RDW Coefficient of Variation 16.3 % (11.5-14.5) Immature Granulocyte % (Auto) 0.5 % Immature Granulocyte # (Auto) 0.05 K/uL (0.00-0.02) Polychromasia 1+ Basophilic Stippling 1+ Anisocytosis PRESENT Anion Gap 8.0 mmol/L (3-11) Est Creatinine Clear Calc Drug Dose 40.0 ml/min Estimated GFR () 58.7 Estimated GFR (Non- 50.6 BUN/Creatinine Ratio 65.6 (10-20) Calcium Level 8.4 mg/dl (8.5-10.1) Assessment and Plan 86F with a PMHx of Afib, DM2 , chronic stasis dermatitis admitted with lower extremity swelling concerning for cellulitis. Lower extremity swelling : cellulitis in setting of chronic venous stasis - Venous Doppler of Lower extremities - negative for DVT - BC negative so far - Tracy stated 12/31. will switch to PO Augmentin Acute renal failure- resolved - Cr at 1.0 , 1.7 on admission - Monitor Hypoglycemia: T2DM managed with Glipizide ER as an OP- held Sacral decubitus ulcer - EHOB mattress - Wound care consult- appreciate input Catheter associated UTI: - UC positive for Alyssa - Patient is asymptomatic Atrial fibrillation: - [id number] vasc of 7 - EKG unchanged from previous admission. - Continue Diltiazem 120mg daily, digoxin 125mcg - Anticoagulation with Aspirin 81mg daily. DVT prophylaxis: Lovenox daily Full code Resident Physician Supervision Note: I was present with Dr. Salcedo during the history and exam. I discussed the case with the resident and agree with the findings and plan as documented in the note. Documented By: Florian Wade
[2017-01-05] MEDS: DIGOXIN 0.125 MG TAB PO SCH (16:00)
[2017-01-06 00:14] VITALS: BP 131/63; PULSE 61; TEMP 37.1; O2SAT 97
[2017-01-06 06:40] LABS: BASO % 0.5 %; BASO ABS # 0.05 K/uL (0-0.2); EOS % 2.3 %; HEMATOCRIT 25.4 % (37-47); IG% 0.5 %; LYMPH % 44.1 %; LYMPH ABS # 4.74 K/uL (1.2-3.4); MEAN CELL VOLUME 96.9 fL (80-100); MEAN CORPUSCULAR HEMOGLOBIN 32.1 pg (25-34); MEAN CORPUSCULAR HGB CONC 33.1 g/dl (32-36); MEAN PLATELET VOLUME 10.3 fL (7.4-10.4); MONO % 7.4 %; NEUT % 45.2 %; PLATELET COUNT 215 K/uL (130-400); RED BLOOD COUNT 2.62 M/uL (4.2-5.4); WHITE BLOOD COUNT 10.76 K/uL (4.8-10.8)
[2017-01-06 07:14] LABS: BUN/CREATININE RATIO 59.1 (10-20); CALCIUM 8.5 mg/dl (8.5-10.1); COMPLETE YES; CREATININE 0.99 mg/dl (0.60-1.20); POTASSIUM 5.2 mmol/L (3.5-5.1)
[2017-01-06 07:35] VITALS: BP 136/68; PULSE 57; TEMP 36.5; O2SAT 99
[2017-01-06] MEDS: DILTIAZEM HCL 120 MG EXT REL CAP PO SCH (08:23)
[2017-01-06] MEDS: ASPIRIN 81 MG ECTAB PO SCH (08:23)
[2017-01-06] MEDS: CHOLECALCIFEROL 1000 INTER.UNIT TAB PO SCH (08:23)
[2017-01-06] MEDS: AMOXICILLIN/CLAVULANATE TAB 875 MG TAB PO SCH ×2 (08:23→17:22)
[2017-01-06] MEDS: BOOST PLUS VANILLA PO SCH ×6 (08:23→17:23)
[2017-01-06] MEDS: EUCERIN CR 120 GM JAR EXT SCH ×2 (08:24→19:23)
--- NOTE | 2017-01-06 11:59 | Family Medicine Progress Note ---
Progress Note Date of Service Jan 06, 2017. Subjective Pt evaluation today including: conversation w/ patient, physical exam, chart review, lab review Pain: denies pain doing well. denies pain/fevers/chills. Constitutional: No chills, No fever Eyes: No worsening of vision ENT: + hearing loss Respiratory: No cough, No shortness of breath, No sputum, No wheezing Cardiovascular: No chest pain Abdomen: No nausea, No pain, No vomiting Medications Current Inpatient Medications Medications (Trade) Dose Ordered Sig/Kaylee Route Start Time Stop Time Status Last Admin Dose Admin Acetaminophen (Tylenol Tab) 650 mg Q4H PRN PO 12/31/16 20:15 01/30/17 20:14 Al Hydrox/Mg Hydrox/Simethicone (Maalox Max Susp) 15 ml Q4H PRN PO 12/31/16 20:15 01/30/17 20:14 Magnesium Hydroxide (Milk Of Magnesia Susp) 30 ml Q6H PRN PO 12/31/16 20:15 01/30/17 20:14 Polyethylene (Miralax Powder Packet) 17 gm DAILY PRN PO 12/31/16 20:30 01/30/17 20:29 Ondansetron HCl (Zofran Inj) 4 mg Q6H PRN IV 12/31/16 20:15 01/30/17 20:14 Aspirin (Ecotrin Tab) 81 mg DAILY PO 01/01/17 08:00 01/31/17 08:59 01/06/17 08:23 81 MG Cholecalciferol (Vitamin D Tab) 2,000 inter.unit DAILY PO 01/01/17 08:00 01/31/17 08:59 01/06/17 08:23 2,000 INTER.UNIT Diltiazem HCl (TIAzac CAP) 120 mg DAILY PO 01/01/17 08:00 01/31/17 08:59 01/06/17 08:23 120 MG Glucose (Glucose 40% Gel) 15-30 GRAMS 15 GRAMS... UD PRN PO 12/31/16 21:15 01/30/17 21:14 Glucose (Glucose Chew Tab) 4-8 Tablets 4 Tabl... UD PRN PO 12/31/16 21:15 01/30/17 21:14 01/01/17 17:15 4 TABS Dextrose (Dextrose 50% 50ML Syringe) 25-50ML OF 50% DW IV FOR... UD PRN IV 12/31/16 21:15 01/30/17 21:14 01/02/17 08:13 50 ML Glucagon (Glucagon Inj) 1 mg UD PRN SQ 12/31/16 21:15 01/30/17 21:14 Digoxin (Lanoxin Tab) 0.125 mg DAILY@1600 PO 01/01/17 16:00 01/31/17 15:59 01/03/17 15:36 0.125 MG Multi-Ingredient Ointment (Eucerin Unscented Cr) 1 appln BID EXT 01/01/17 12:21 01/31/17 12:20 01/06/17 08:24 1 APPLN Enteral Nutritional Formula (Boost Plus Vanilla) 1 can TIDM PO 01/01/17 17:00 01/31/17 16:59 01/06/17 08:23 1 CAN Amoxicillin/ Clavulanate Potassium (Augmentin Tab) 875 mg BIDM PO 01/04/17 21:00 01/13/17 20:59 01/06/17 08:23 875 MG Objective Vital Signs Date Time Temp Pulse Resp B/P Pulse Ox O2 Delivery O2 Flow Rate FiO2 01/06/17 08:00 Room Air 01/06/17 07:35 36.5 57 17 136/68 99 Room Air 01/06/17 00:14 37.1 61 18 131/63 97 Room Air 01/06/17 00:10 Room Air 01/05/17 16:00 Room Air 01/05/17 16:00 49 01/05/17 15:10 36.8 56 16 110/60 98 Room Air Physical Exam General Appearance: WD/WN, no apparent distress Eyes: normal inspection ENT: normal ENT inspection, hearing grossly normal Neck: supple Respiratory/Chest: chest non-tender, no respiratory distress Cardiovascular: + irregularly irregular Abdomen: normal bowel sounds, non tender Extremities: + pedal edema Neurologic/Psychiatric: alert, normal mood/affect, oriented x 3 Skin: + pertinent finding (chronic stasis dermatitis, non tender, non erythematous swelling in b/l LE) Assessment and Plan 86F with a PMHx of Afib, DM2 , chronic stasis dermatitis admitted with lower extremity swelling concerning for cellulitis. Lower extremity swelling : cellulitis in setting of chronic venous stasis - Venous Doppler of Lower extremities - negative for DVT - BC negative so far - switched to PO Augmentin Acute renal failure- resolved - Cr at 0.9 , 1.7 on admission - Monitor Hypoglycemia: T2DM managed with Glipizide ER as an OP- held Sacral decubitus ulcer - EHOB mattress - Wound care consult- appreciate input Catheter associated UTI: - UC positive for Alyssa - Patient is asymptomatic Atrial fibrillation: - [id number] vasc of 7 - EKG unchanged from previous admission. - Continue Diltiazem 120mg daily, digoxin 125mcg - Anticoagulation with Aspirin 81mg daily. DVT prophylaxis: Lovenox daily PT/OT Full code Disposition: to [facility] for inpatient re[facility] Resident Physician Supervision Note: I was present with Dr. Salcedo during the history and exam. I discussed the case with the resident and agree with the findings and plan as documented in the note. Any exceptions or clarifications are listed here: Clinically improving cellulitis, now on PO Augmentin. Was without complaints today, alert and oriented and quite conversational. Family preference is [facility], awaiting arrangements/bed at this point. Documented By: Florian Wade Discharge planning: rehab hospital
[2017-01-06] MEDS: DIGOXIN 0.125 MG TAB PO SCH (16:00)
[2017-01-06 16:20] VITALS: BP 130/68; PULSE 46; TEMP 36.7; O2SAT 97
[2017-01-06 23:54] VITALS: BP 127/70; PULSE 63; TEMP 37.1; O2SAT 98
[2017-01-07 07:28] LABS: HEMATOCRIT 25.4 % (37-47); MEAN CELL VOLUME 94.8 fL (80-100); MEAN CORPUSCULAR HEMOGLOBIN 31.3 pg (25-34); MEAN CORPUSCULAR HGB CONC 33.1 g/dl (32-36); MEAN PLATELET VOLUME 10.3 fL (7.4-10.4); PLATELET COUNT 225 K/uL (130-400); RED BLOOD COUNT 2.68 M/uL (4.2-5.4); WHITE BLOOD COUNT 9.27 K/uL (4.8-10.8)
[2017-01-07 08:01] LABS: BUN/CREATININE RATIO 54.8 (10-20); CALCIUM 8.8 mg/dl (8.5-10.1); CREATININE 0.89 mg/dl (0.60-1.20); POTASSIUM 5.3 mmol/L (3.5-5.1)
[2017-01-07 08:04] LABS: BASO % 0.4 %; BASO ABS # 0.04 K/uL (0-0.2); COMPLETE YES; EOS % 2.9 %; IG% 0.8 %; LYMPH % 39.2 %; LYMPH ABS # 3.63 K/uL (1.2-3.4); NEUT % 48.7 %
[2017-01-07] MEDS: AMOXICILLIN/CLAVULANATE TAB 875 MG TAB PO SCH ×2 (08:06→15:59)
[2017-01-07] MEDS: ASPIRIN 81 MG ECTAB PO SCH (08:06)
[2017-01-07] MEDS: DILTIAZEM HCL 120 MG EXT REL CAP PO SCH (08:07)
[2017-01-07] MEDS: CHOLECALCIFEROL 1000 INTER.UNIT TAB PO SCH (08:07)
[2017-01-07] MEDS: EUCERIN CR 120 GM JAR EXT SCH ×2 (08:08→20:13)
[2017-01-07 08:13] VITALS: BP 154/55; PULSE 64; TEMP 36.8; O2SAT 99
[2017-01-07] MEDS: BOOST PLUS VANILLA PO SCH ×6 (08:16→17:00)
[2017-01-07 11:21] VITALS: BP 145/63; PULSE 68; TEMP 36.8; O2SAT 98
--- NOTE | 2017-01-07 11:52 | Discharge Instructions ---
Discharge Instructions Admission Reason for Admission: Cellulitis Of Both Lower Extremities Discharge Discharge Diagnosis / Problem: cellulitis Discharge Goals Goal(s): Decrease discomfort, Improve function Activity Recommendations Activity Limitations: resume your previous activity . Instructions / Follow-Up Instructions / Follow-Up 86F with a PMHx of Afib, DM2 , chronic stasis dermatitis admitted with lower extremity swelling concerning for cellulitis. Lower extremity swelling : cellulitis in setting of chronic venous stasis - Continue Augmentin for 2 more days twice daily - eucerin application twice daily Hypoglycemia: T2DM- was on glipizide do not use glipizide any more due to concerns for hypoglycemia Sacral decubitus ulcer - needs air mattress - wound care Atrial fibrillation: - Continue Diltiazem 120mg daily, digoxin 125mcg - Anticoagulation with Aspirin 81mg daily. Hyperkalemia: K was 5.7 today - received Kayexalate toady and was given 40 meq of lasix - she uses 20 meq of Lasix at home Current Hospital Diet Patient's current hospital diet: Regular Diet Discharge Diet Recommended Diet: Regular Diet Pending Studies Studies pending at discharge: no Laboratory Results Hemoglobin A1c Test 01/01/17 05:45 Range/Units Estimated Average Glucose 91 mg/dl Hemoglobin A1c 4.8 4.5-5.6 % Medical Emergencies . Who to Call and When: Medical Emergencies: If at any time you feel your situation is an emergency, please call 911 immediately. . Non-Emergent Contact Non-Emergency issues call your: Primary Care Provider . . "Provider Documentation" section prepared by Shira Salcedo. VTE Core Measure Inpt VTE Proph given/why not?: Other Anticoagulation
[2017-01-07 15:55] VITALS: BP 128/67; PULSE 52; TEMP 37; O2SAT 98
[2017-01-07] MEDS: DIGOXIN 0.125 MG TAB PO SCH (16:00)
--- NOTE | 2017-01-07 16:13 | Progress Note ---
Subjective Date of Service: Jan 07, 2017. Subjective Pt evaluation today including: conversation w/ patient, conversation w/ family , physical exam, chart review, lab review, review of studies, review of inpatient medication list Pain: denies PO Intake: good Voiding: najera catheter in place Upon examination today, the patient without complaints. She is lying semireclined in bed watching TV. Problem List Medical Problems: (1) Acute renal failure Status: Acute (2) Cellulitis of both lower extremities Status: Acute (3) Confusion Status: Acute (4) Dehydration Status: Acute (5) Hypoglycemia Status: Acute (6) Hypokalemia Status: Acute (7) Hypomagnesemia Status: Acute (8) Weakness Status: Acute Review of Systems Constitutional: No chills, No fever Eyes: No problem reported ENT: No problem reported Respiratory: No cough Cardiac: No chest pain, No orthopnea Abdomen: No pain Neurologic: + balance problems, + weakness, No memory loss, No vertigo All Other Systems: Reviewed and Negative Medications Acetaminophen (Tylenol Tab) 650 mg Q4H PRN PO; Start 12/31/16 at 20:15; Stop 01/30/17 at 20:14 Al Hydrox/Mg Hydrox/Simethicone (Maalox Max Susp) 15 ml Q4H PRN PO; Start 12/31 at 20:15; Stop 01/30/17 at 20:14 Amoxicillin/ Clavulanate Potassium (Augmentin Tab) 875 mg BIDM PO Last administered on 01/07/17 08:06; Admin Dose 875 MG; Start 01/04/17 at 21:00; Stop 01/13/17 at 20:59 Aspirin (Ecotrin Tab) 81 mg DAILY PO Last administered on 01/07/17 08:06; Admin Dose 81 MG; Start 01/01/17 at 08:00; Stop 01/31/17 at 08:59 Cholecalciferol (Vitamin D Tab) 2,000 inter.unit DAILY PO Last administered on 08:07; Admin Dose 2,000 INTER.UNIT; Start 01/01/17 at 08:00; Stop at 08:59 Dextrose (Dextrose 50% 50ML Syringe) 25-50ML OF 50% DW IV FOR... UD PRN IV Last administered on 01/02/17 08:13; Admin Dose 50 ML; Start 12/31/16 at 21:15 ; Stop 01/30/17 at 21:14 Digoxin (Lanoxin Tab) 0.125 mg DAILY@1600 PO Last administered on 01/03/17 15: 36; Admin Dose 0.125 MG; Start 01/01/17 at 16:00; Stop 01/31/17 at 15:59 Diltiazem HCl (TIAzac CAP) 120 mg DAILY PO Last administered on 01/07/17 08:07; Admin Dose 120 MG; Start 01/01/17 at 08:00; Stop 01/31/17 at 08:59 Enteral Nutritional Formula (Boost Plus Vanilla) 1 can TIDM PO Last administered on 01/07/17 12:50; Admin Dose 1 CAN; Start 01/01/17 at 17:00; Stop 01/31/17 at 16:59 Glucagon (Glucagon Inj) 1 mg UD PRN SQ; Start 12/31/16 at 21:15; Stop 01/30/17 at 21:14 Glucose (Glucose 40% Gel) 15-30 GRAMS 15 GRAMS... UD PRN PO; Start 12/31/16 at 21:15; Stop 01/30/17 at 21:14 Glucose (Glucose Chew Tab) 4-8 Tablets 4 Tabl... UD PRN PO Last administered on 01/01/17 17:15; Admin Dose 4 TABS; Start 12/31/16 at 21:15; Stop 01/30/17 at 21:14 Magnesium Hydroxide (Milk Of Magnesia Susp) 30 ml Q6H PRN PO; Start 12/31/16 at 20:15; Stop 01/30/17 at 20:14 Multi-Ingredient Ointment (Eucerin Unscented Cr) 1 appln BID EXT Last administered on 01/07/17 08:08; Admin Dose 1 APPLN; Start 01/01/17 at 12:21; Stop 01/31/17 at 12:20 Ondansetron HCl (Zofran Inj) 4 mg Q6H PRN IV; Start 12/31/16 at 20:15; Stop at 20:14 Polyethylene (Miralax Powder Packet) 17 gm DAILY PRN PO; Start 12/31/16 at 20: 30; Stop 01/30/17 at 20:29 Objective Vital Signs Date Time Temp Pulse Resp B/P Pulse Ox O2 Delivery O2 Flow Rate FiO2 01/07/17 15:55 37.0 52 18 128/67 98 Room Air 01/07/17 11:21 36.8 68 18 145/63 98 Room Air 01/07/17 08:13 36.8 64 18 154/55 99 Room Air 01/07/17 08:00 Room Air 01/07/17 01:15 Room Air 01/06/17 23:54 37.1 63 20 127/70 98 Room Air 01/06/17 16:20 36.7 46 16 130/68 97 Room Air Physical Exam General Appearance: WD/WN, no apparent distress Eyes: normal inspection ENT: hearing grossly normal, + pertinent finding (hard of hearing) Neck: supple, no adenopathy Respiratory/Chest: chest non-tender, lungs clear, normal breath sounds Cardiovascular: + irregularly irregular Abdomen: normal bowel sounds, non tender Extremities: normal range of motion, non-tender, normal inspection Neurologic/Psychiatric: no motor/sensory deficits, alert, normal mood/affect, oriented x 3 Skin: normal color, + pertinent finding (lower extremities have typical findings of chronic venous stasis; the erythema is deeper red or consistent with her baseline than the brighter red and tenderness that was noted earlier in the week which seemed goodwill representative of cellulitis.) Laboratory Results Last 24 Hours Test 01/07/17 07:08 White Blood Count 9.27 K/uL Red Blood Count 2.68 M/uL Hemoglobin 8.4 g/dL Hematocrit 25.4 % Mean Corpuscular Volume 94.8 fL Mean Corpuscular Hemoglobin 31.3 pg Mean Corpuscular Hemoglobin Concent 33.1 g/dl Platelet Count 225 K/uL Mean Platelet Volume 10.3 fL Neutrophils (%) (Auto) 48.7 % Lymphocytes (%) (Auto) 39.2 % Monocytes (%) (Auto) 8.0 % Eosinophils (%) (Auto) 2.9 % Basophils (%) (Auto) 0.4 % Neutrophils # (Auto) 4.52 K/uL Lymphocytes # (Auto) 3.63 K/uL Monocytes # (Auto) 0.74 K/uL Eosinophils # (Auto) 0.27 K/uL Basophils # (Auto) 0.04 K/uL RDW Standard Deviation 56.9 fL RDW Coefficient of Variation 16.4 % Immature Granulocyte % (Auto) 0.8 % Immature Granulocyte # (Auto) 0.07 K/uL Red Blood Cell Morphology Unremarkable Sodium Level 145 mmol/L Potassium Level 5.3 mmol/L Chloride Level 117 mmol/L Carbon Dioxide Level 21 mmol/L Anion Gap 7.0 mmol/L Blood Urea Nitrogen 49 mg/dl Creatinine 0.89 mg/dl Est Creatinine Clear Calc Drug Dose 44.9 ml/min Estimated GFR () 67.5 Estimated GFR (Non- 58.3 BUN/Creatinine Ratio 54.8 Random Glucose 96 mg/dl Calcium Level 8.8 mg/dl Assessment and Plan A 86-year-old female with bilateral lower extremity cellulitis, improving, visiting of chronic venous stasis changes. Lower extremity swelling / cellulitis in setting of chronic venous stasis Continues to improve on oral Augmentin as monotherapy. Acute renal failure, resolved Currently 1.7 upon admission, improved. Note elevation of potassium, etiology uncertain. We'll monitor. Atrial fibrillation, rate controlled Continue Diltiazem 120mg daily, digoxin 125mcg Anticoagulation with Aspirin 81mg daily; too much of a far risk for anything more than aspirin. Hypoglycemia I would recommend against restarting glipizide in this patient Monitor blood sugars Sacral decubitus ulcer Appreciate wound care and put DVT prophylaxis: Lovenox daily Disposition: [facility] pending bed availability and transport. Resident Physician Supervision Note: I was present with Dr. Salcedo during the history and exam. I discussed the case with the resident and agree with the findings and plan as documented in the note. Additional clinical information is dictated in the resident physicians note as well. Documented By: Florian Wade Continued [facility] stay due to: home environment unsafe for pt Discharge planning: rehab hospital
--- NOTE | 2017-01-07 18:07 | Family Medicine Progress Note ---
Progress Note Date of Service Jan 07, 2017. Subjective Pt evaluation today including: conversation w/ patient, conversation w/ family , physical exam, chart review, lab review Pain: no pain PO Intake: good Voiding: no voiding problems doing well. feels better. no fevers/chills. swelling in legs is better Constitutional: No chills, No fever Eyes: No worsening of vision ENT: + hearing loss Respiratory: No cough Cardiovascular: No chest pain Abdomen: No nausea, No pain, No vomiting Female : No dysuria Neurologic: No memory loss Medications Current Inpatient Medications Medications (Trade) Dose Ordered Sig/Kaylee Route Start Time Stop Time Status Last Admin Dose Admin Acetaminophen (Tylenol Tab) 650 mg Q4H PRN PO 12/31/16 20:15 01/30/17 20:14 Al Hydrox/Mg Hydrox/Simethicone (Maalox Max Susp) 15 ml Q4H PRN PO 12/31/16 20:15 01/30/17 20:14 Magnesium Hydroxide (Milk Of Magnesia Susp) 30 ml Q6H PRN PO 12/31/16 20:15 01/30/17 20:14 Polyethylene (Miralax Powder Packet) 17 gm DAILY PRN PO 12/31/16 20:30 01/30/17 20:29 Ondansetron HCl (Zofran Inj) 4 mg Q6H PRN IV 12/31/16 20:15 01/30/17 20:14 Aspirin (Ecotrin Tab) 81 mg DAILY PO 01/01/17 08:00 01/31/17 08:59 01/07/17 08:06 81 MG Cholecalciferol (Vitamin D Tab) 2,000 inter.unit DAILY PO 01/01/17 08:00 01/31/17 08:59 01/07/17 08:07 2,000 INTER.UNIT Diltiazem HCl (TIAzac CAP) 120 mg DAILY PO 01/01/17 08:00 01/31/17 08:59 01/07/17 08:07 120 MG Glucose (Glucose 40% Gel) 15-30 GRAMS 15 GRAMS... UD PRN PO 12/31/16 21:15 01/30/17 21:14 Glucose (Glucose Chew Tab) 4-8 Tablets 4 Tabl... UD PRN PO 12/31/16 21:15 01/30/17 21:14 01/01/17 17:15 4 TABS Dextrose (Dextrose 50% 50ML Syringe) 25-50ML OF 50% DW IV FOR... UD PRN IV 12/31/16 21:15 01/30/17 21:14 01/02/17 08:13 50 ML Glucagon (Glucagon Inj) 1 mg UD PRN SQ 12/31/16 21:15 01/30/17 21:14 Digoxin (Lanoxin Tab) 0.125 mg DAILY@1600 PO 01/01/17 16:00 01/31/17 15:59 01/03/17 15:36 0.125 MG Multi-Ingredient Ointment (Eucerin Unscented Cr) 1 appln BID EXT 01/01/17 12:21 01/31/17 12:20 01/07/17 08:08 1 APPLN Enteral Nutritional Formula (Boost Plus Vanilla) 1 can TIDM PO 01/01/17 17:00 01/31/17 16:59 01/07/17 17:00 1 CAN Amoxicillin/ Clavulanate Potassium (Augmentin Tab) 875 mg BIDM PO 01/04/17 21:00 01/13/17 20:59 01/07/17 15:59 875 MG Objective Vital Signs Date Time Temp Pulse Resp B/P Pulse Ox O2 Delivery O2 Flow Rate FiO2 01/07/17 16:00 Room Air 01/07/17 16:00 56 01/07/17 15:55 37.0 52 18 128/67 98 Room Air 01/07/17 11:21 36.8 68 18 145/63 98 Room Air 01/07/17 08:13 36.8 64 18 154/55 99 Room Air 01/07/17 08:00 Room Air 01/07/17 01:15 Room Air 01/06/17 23:54 37.1 63 20 127/70 98 Room Air Physical Exam General Appearance: WD/WN, no apparent distress Eyes: normal inspection ENT: normal ENT inspection, + pertinent finding (hearing loss) Neck: supple Respiratory/Chest: chest non-tender, lungs clear, normal breath sounds, no respiratory distress, no accessory muscle use Cardiovascular: regular rate, rhythm Abdomen: normal bowel sounds, non tender, soft Extremities: + pedal edema (lower extremities non tender, non erythematous but chronic dermatitis), + pertinent finding Neurologic/Psychiatric: alert, normal mood/affect, oriented x 3 Laboratory Results 01/07/17 07:08 Red Blood Count 2.68, Mean Corpuscular Volume 94.8, Mean Corpuscular Hemoglobin 31.3, Mean Corpuscular Hemoglobin Concent 33.1, Mean Platelet Volume 10.3, Neutrophils (%) (Auto) 48.7, Lymphocytes (%) (Auto) 39.2, Monocytes (%) (Auto) 8.0, Eosinophils (%) (Auto) 2.9, Basophils (%) (Auto) 0.4, Neutrophils # (Auto) 4.52, Lymphocytes # (Auto) 3.63, Monocytes # (Auto) 0.74, Eosinophils # (Auto) 0.27, Basophils # (Auto) 0.04 01/07/17 07:08 Test 01/07/17 07:08 White Blood Count 9.27 K/uL (4.8-10.8) Red Blood Count 2.68 M/uL (4.2-5.4) Hemoglobin 8.4 g/dL (12.0-16.0) Hematocrit 25.4 % (37-47) Mean Corpuscular Volume 94.8 fL (80-100) Mean Corpuscular Hemoglobin 31.3 pg (25-34) Mean Corpuscular Hemoglobin Concent 33.1 g/dl (32-36) Platelet Count 225 K/uL (130-400) Mean Platelet Volume 10.3 fL (7.4-10.4) Neutrophils (%) (Auto) 48.7 % Lymphocytes (%) (Auto) 39.2 % Monocytes (%) (Auto) 8.0 % Eosinophils (%) (Auto) 2.9 % Basophils (%) (Auto) 0.4 % Neutrophils # (Auto) 4.52 K/uL (1.4-6.5) Lymphocytes # (Auto) 3.63 K/uL (1.2-3.4) Monocytes # (Auto) 0.74 K/uL (0.11-0.59) Eosinophils # (Auto) 0.27 K/uL (0-0.5) Basophils # (Auto) 0.04 K/uL (0-0.2) RDW Standard Deviation 56.9 fL (36.4-46.3) RDW Coefficient of Variation 16.4 % (11.5-14.5) Immature Granulocyte % (Auto) 0.8 % Immature Granulocyte # (Auto) 0.07 K/uL (0.00-0.02) Red Blood Cell Morphology Unremarkable Anion Gap 7.0 mmol/L (3-11) Est Creatinine Clear Calc Drug Dose 44.9 ml/min Estimated GFR () 67.5 Estimated GFR (Non- 58.3 BUN/Creatinine Ratio 54.8 (10-20) Calcium Level 8.8 mg/dl (8.5-10.1) Assessment and Plan 86F with a PMHx of Afib, DM2 , chronic stasis dermatitis admitted with lower extremity swelling concerning for cellulitis. Lower extremity swelling : cellulitis in setting of chronic venous stasis - Venous Doppler of Lower extremities - negative for DVT - switched to PO Augmentin monotherapy Acute renal failure- resolved - Cr at 0.9 , 1.7 on admission - Monitor hyperkalemia: K at 5.3 today, jumped from 4.4 two days ago - will monitor Hypoglycemia: T2DM managed with Glipizide ER as an OP- held Sacral decubitus ulcer - EHOB mattress - Wound care consult- appreciate input Catheter associated UTI: - UC positive for Alyssa - Patient is asymptomatic, so will not treat Atrial fibrillation: - [id number] vasc of 7 - EKG unchanged from previous admission. - Continue Diltiazem 120mg daily, digoxin 125mcg - Anticoagulation with Aspirin 81mg daily. DVT prophylaxis: Lovenox daily PT/OT Full code Disposition: to [facility] for inpatient rehab Resident Physician Supervision Note: I was present with Dr. Salcedo during the history and exam and agree with above. Please see my note of the same date. Documented By: Florian Wade
[2017-01-07 23:51] VITALS: BP 151/62; PULSE 62; TEMP 37.3; O2SAT 98
[2017-01-08 07:14] LABS: BASO % 0.5 %; BASO ABS # 0.04 K/uL (0-0.2); EOS % 2.6 %; HEMATOCRIT 25.1 % (37-47); IG% 0.7 %; LYMPH ABS # 3.22 K/uL (1.2-3.4); MEAN CELL VOLUME 96.9 fL (80-100); MEAN CORPUSCULAR HGB CONC 33.1 g/dl (32-36); MEAN PLATELET VOLUME 10.2 fL (7.4-10.4); MONO % 9.9 %; NEUT % 48.3 %; PLATELET COUNT 218 K/uL (130-400); RED BLOOD COUNT 2.59 M/uL (4.2-5.4); WHITE BLOOD COUNT 8.47 K/uL (4.8-10.8)
[2017-01-08 07:40] LABS: BUN/CREATININE RATIO 52.8 (10-20); CALCIUM 8.9 mg/dl (8.5-10.1); CREATININE 0.81 mg/dl (0.60-1.20); POTASSIUM 5.7 mmol/L (3.5-5.1)
[2017-01-08 08:02] LABS: COMPLETE YES
[2017-01-08] MEDS: CHOLECALCIFEROL 1000 INTER.UNIT TAB PO SCH (08:03)
[2017-01-08] MEDS: AMOXICILLIN/CLAVULANATE TAB 875 MG TAB PO SCH (08:03)
[2017-01-08] MEDS: EUCERIN CR 120 GM JAR EXT SCH (08:04)
[2017-01-08] MEDS: ASPIRIN 81 MG ECTAB PO SCH (08:04)
[2017-01-08] MEDS: DILTIAZEM HCL 120 MG EXT REL CAP PO SCH (08:04)
[2017-01-08] MEDS: BOOST PLUS VANILLA PO SCH ×4 (08:07→11:37)
[2017-01-08 08:14] VITALS: BP 154/68; PULSE 68; TEMP 37; O2SAT 98
[2017-01-08] MEDS ORDERED: SODIUM POLYST. SULF SUSP 15G/60ML PO STA (09:00)
[2017-01-08] MEDS ORDERED: FUROSEMIDE 40 MG TAB PO SCH (10:15)
[2017-01-08] MEDS ORDERED: AMOX1TAB43 PO (12:00)
--- NOTE | 2017-01-08 12:02 | Discharge Summary ---
Discharge Summary Date of Service Jan 08, 2017. (Shira Salcedo MD) Discharge Summary Admission Date: Dec 31, 2016 at 20:20 Discharge Date: Jan 08, 2017 Discharge Disposition: Rehab Principal Diagnosis: Cellulitis b/l Lower extremities Problems/Secondary Diagnoses: hyperkalemia Immunizations: Have You Had Influenza Vaccine: No History of Tetanus Vaccine?: Yes History of Pneumococcal: No History of Hepatitis B Vaccine: No Consultations: Wound care (Shira Salcedo MD) Medication Reconciliation Continued Medications: Allopurinol (Zyloprim) 300 Mg Tab 300 MG PO DAILY, TAB Amoxicillin & Pot Clavulanate (Amoxicillin/Clavulanate P) 1 Tab Tab 875 MG PO BIDM for 2 Days, #2 TAB (This prescription has been renewed) Aspirin Enteric Coated (Ecotrin Or Generic) 81 Mg Tab 81 MG PO DAILY, TAB Cholecalciferol (Vitamin D 1000 Unit) 1,000 Unit Cap 2000 INTER.UNIT PO DAILY Digoxin (Digox) 125 Mcg Tab 125 MCG PO DAILY AT 1700 Diltiazem Hcl Ext Rel (Tiazac) 120 Mg Capcr 120 MG PO DAILY, CAP Furosemide (Lasix) 20 Mg Tab 20 MG PO QAM, TAB Lactobacillus Acidophilus-Pect (Acidophilus/Pectin) 1 Cap Cap 1 CAP PO DAILY Discontinued Medications: Glipizide (Glipizide Er) 2.5 Mg Tab 1 TAB PO DAILY for 90 Days, #90 TAB 3 Refills WITH BREAKFAST. Discharge Exam doing well. denied any CP/SOB, fevers.chills Review of Systems: Constitutional: No chills, No fever Eyes: No worsening of vision ENT: + hearing loss Respiratory: No cough, No shortness of breath, No sputum Cardiovascular: No chest pain Abdomen: No nausea, No pain, No vomiting Genitourinary - Female: No dysuria Genitourinary - Male: No hematuria Neurologic: No memory loss Endocrine: No fatigue Physical Exam: General Appearance: WD/WN, + thin Eyes: normal inspection ENT: normal ENT inspection, + pertinent finding (hearing loss) Neck: supple Respiratory/Chest: chest non-tender, lungs clear, normal breath sounds, no respiratory distress, no accessory muscle use Cardiovascular: regular rate, rhythm Extremities: + swelling, + pertinent finding (b/l lower extremities non tender, non erythematous. chronic stasis dermatitis) Neurologic/Psychiatric: alert, normal mood/affect, oriented x 3 Skin: normal color Lymphatic: no adenopathy (Shira Salcedo MD) Hospital Course 86F with a PMHx of Afib, DM2, h/o sacral decubitus ulcers who was discharged [place] [facility] [place] weeks ago for pleural effusions presents with a 1 day history of weakness and swelling in her lower extremities. Pt is accompanied by both daughters were are the chief historians. Pt on Wednesday (4 days prior) was sent home from her senior care facility with a najera in place. Family states that pt has been doing well since being home but today was feeling a little off. Family is worried about 1) decreased urine output in najera starting today despite adequate PO fluid intake 2) swelling in the LE which they believe may be positional because pt's legs haven't been elevated 3) decreased strength which according to family occurs every time pt gets a UTI. According to pt she feels well and has no complaints. Pt is hard of hearing. In the ER blood sugar was found to be 37 and patient was given Dextrose and a sandwich. Lower extremity swelling : cellulitis in setting of chronic venous stasis - BC negative - Venous Doppler of Lower extremities - negative for DVT - was initially treated with Zosyn and later switched to PO Augmentin monotherapy. continue Augmentin for 2 more days to complete 10 days course hyperkalemia: K at 5.7 from 5.3 yesterday, likely sec to holding her Lasix due to elevated creatinine - gave her Kayexalate and 40 mEQ PO Lasix - Monitor potassium and adjust Lasix dosing - continue home dose of 20 mg Lasix daily Hypoglycemia: T2DM managed with Glipizide ER as an OP Had episodes of hypoglycemia STOP glipizide considering hypoglycemic episodes and risk for fall Sacral decubitus ulcer - AIR mattress per wound care recomnedations - Wound care consult- appreciate input Catheter associated UTI: - UC positive for Alyssa - Patient is asymptomatic, so will not treat. consider d/c najera Atrial fibrillation: - [id number] vasc of 7 - Continue Diltiazem 120mg daily, digoxin 125mcg - Anticoagulation with Aspirin 81mg daily. Total Time Spent: Greater than 30 minutes This includes examination of the patient, discharge planning, medication reconciliation, and communication with other providers. (Shira Salcedo MD) Resident Physician Supervision Note: I was present with during the history and exam. I discussed the case with the resident and agree with the findings and plan as documented in the note. Any exceptions or clarifications are listed here: Upon exam the patient looked well, she had no complaints. There is the issue of the slight hyperkalemia; she is asymptomatic, it was treated with 1 dose of oral Kayexalate and a 40 mg dose of Lasix. This issue was discussed with [facility] and thought not to be a contraindication to transfer and something they could follow-up with repeat lab work at their facility. Documented By: Florian Wade (Florian Wade.,D.O.) Discharge Instructions Please refer to the electronic Patient Visit Report (Discharge Instructions) for additional information. (Shira Salcedo MD)
[2017-01-08 13:07] VITALS: BP 154/68; PULSE 68; TEMP 37; O2SAT 98
[2017-01-09] MEDS ORDERED: FUROSEMIDE 20 MG TAB PO SCH (08:00)
== END 2017-01-08 14:30 | DRG 698 ==
LOC: ENRESERVTM → ENRESERVDT → EDBD 17:51 → C.EDC 17:52 → C.4E 20:20 → UNDOADMIN 20:20
PROVIDERS: ADMIT Family Medicine; ATTEND Family Medicine
DX: T83.511A Infection and inflammatory reaction due to indwelling urethral catheter, initial encounter (principal); L89.313 Pressure ulcer of right buttock, stage 3; L89.323 Pressure ulcer of left buttock, stage 3; N17.9 Acute kidney failure, unspecified; L03.115 Cellulitis of right lower limb; L03.116 Cellulitis of left lower limb; N39.0 Urinary tract infection, site not specified; I48.2 Chronic atrial fibrillation; H91.90 Unspecified hearing loss, unspecified ear; Z86.73 Personal history of transient ischemic attack (TIA), and cerebral infarction without residual deficits; Z85.828 Personal history of other malignant neoplasm of skin; I10 Essential (primary) hypertension; Z80.9 Family history of malignant neoplasm, unspecified; Z83.3 Family history of diabetes mellitus; Z82.49 Family history of ischemic heart disease and other diseases of the circulatory system; Z83.79 Family history of other diseases of the digestive system; Z84.1 Family history of disorders of kidney and ureter; Z86.14 Personal history of Methicillin resistant Staphylococcus aureus infection; Z88.5 Allergy status to narcotic agent; Z79.899 Other long term (current) drug therapy; E11.51 Type 2 diabetes mellitus with diabetic peripheral angiopathy without gangrene; E11.649 Type 2 diabetes mellitus with hypoglycemia without coma; I27.2 Other secondary pulmonary hypertension; E11.65 Type 2 diabetes mellitus with hyperglycemia; E87.5 Hyperkalemia; L89.159 Pressure ulcer of sacral region, unspecified stage; Y83.1 Surgical operation with implant of artificial internal device as the cause of abnormal reaction of the patient, or of later complication, without mention of misadventure at the time of the procedure

== ENCOUNTER 2017-03-27 12:49 | Inpatient (IN) | payer OTHER ==
[~2017-03-27] VITALS: Ht 157.5 cm; Wt 48.8 kg
[~2017-03-27 12:49] MED LIST changes: -FRS/40 PO; +FURO-85 PO; -GLIP-197 PO; +LACTCAP PO; -LSN25 PO; -POTA10CA28 PO; -SULF-183 PO
[2017-03-27 13:15] VITALS: Ht 157.5 cm; Wt 48.8 kg
[2017-03-27 13:50] LABS: BASO % 0.2 %; BASO ABS # 0.03 K/uL (0-0.2); COMPLETE YES; EOS % 0.9 %; HEMATOCRIT 32.6 % (37-47); IG% 0.4 %; LYMPH ABS # 3.38 K/uL (1.2-3.4); MEAN CELL VOLUME 95.9 fL (80-100); MEAN CORPUSCULAR HEMOGLOBIN 31.2 pg (25-34); MEAN CORPUSCULAR HGB CONC 32.5 g/dl (32-36); MONO % 5.2 %; NEUT % 69.3 %; PLATELET COUNT 161 K/uL (130-400); WHITE BLOOD COUNT 14.08 K/uL (4.8-10.8)
[2017-03-27] MEDS ORDERED: ACET-1256 PO (13:58)
[2017-03-27] MEDS ORDERED: LACTCAP26 PO (13:58)
[2017-03-27] MEDS ORDERED: SULF800T23 PO (13:58)
--- NOTE | 2017-03-27 14:02 | EMERGENCY ROOM VISIT NOTE ---
ED Visit Note First contact with patient: 12:52 Patient was seen by our PA/BOX FEEDER. I was involved in the patient's care and did evaluate the patient myself. I was involved in the care throughout the ER stay. The patient presents after a fall. There is concern for fracture around her prosthetic shoulder joint. She is having blood work and imaging. Her only real complaint of pain is in the area of the shoulder. She is not on Coumadin or direct oral anticoagulants.
[2017-03-27 14:11] LABS: ALB/GLOB RATIO 0.8 (0.9-2); ALKALINE PHOSPHATASE 111 U/L (45-117); ALT/SGPT 29 U/L (12-78); BLOOD UREA NITROGEN 42 mg/dl (7-18); CALCIUM 8.8 mg/dl (8.5-10.1); CARBON DIOXIDE 20 mmol/L (21-32); CHLORIDE 114 mmol/L (98-107); GLUCOSE 171 mg/dl (70-99); SODIUM 144 mmol/L (136-145)
--- NOTE | 2017-03-27 14:25 | DIAGNOSTIC IMAGING REPORT ---
PELVIS 1 OR 2 VIEW ROUTINE CLINICAL HISTORY: fall trauma COMPARISON: None. DISCUSSION: Generalized degenerative change. Left hip pinning. No acute bony abnormality. Osteoporosis. There is no evidence for soft tissue swelling. IMPRESSION: Degenerative and postoperative change. No acute process. Electronically signed by: Jordan Grey M.D. 03/27/2017 2:24 PM Dictated Date/Time: 03/27/2017 2:23 PM
--- NOTE | 2017-03-27 14:26 | DIAGNOSTIC IMAGING REPORT ---
CHEST ONE VIEW PORTABLE CLINICAL HISTORY: fall trauma COMPARISON STUDY: No previous studies for comparison. FINDINGS: The bones soft tissues and hemidiaphragms are normal. The cardiomediastinal silhouette is normal. The lungs are clear. The pulmonary vasculature is normal. IMPRESSION: Negative chest. Chronic change. Electronically signed by: Jordan Grey M.D. 03/27/2017 2:24 PM Dictated Date/Time: 03/27/2017 2:24 PM
--- NOTE | 2017-03-27 14:26 | DIAGNOSTIC IMAGING REPORT ---
LEFT HUMERUS MIN 2 VIEWS ROUTINE CLINICAL HISTORY: fall trauma. Pain. COMPARISON: None. DISCUSSION: Angled fracture midshaft humerus. Prior left shoulder arthroplasty. There is no evidence for soft tissue swelling. IMPRESSION: Angled fracture midshaft humerus. Electronically signed by: Jordan Grey M.D. 03/27/2017 2:25 PM Dictated Date/Time: 03/27/2017 2:25 PM
--- NOTE | 2017-03-27 14:27 | DIAGNOSTIC IMAGING REPORT ---
LEFT HIP UNILATERAL 1 VIEW CLINICAL HISTORY: fall trauma COMPARISON: None. DISCUSSION: Degenerative change of all major osseous structures. Intramedullary jai in position. There is no evidence for soft tissue swelling. IMPRESSION: No acute process. Electronically signed by: Jordan Grey M.D. 03/27/2017 2:26 PM Dictated Date/Time: 03/27/2017 2:26 PM
[2017-03-27 14:42] LABS: POTASSIUM 3.5 mmol/L (3.5-5.1)
[2017-03-27 14:59] LABS: URINE APPEARANCE CLEAR (CLEAR); URINE BILIRUBIN NEG (NEG); URINE COLOR YELLOW; URINE NITRITE NEG (NEG); URINE PH 5.5 (4.5-7.5); URINE SPECIFIC GRAVITY 1.011 (1.000-1.030); UROBILINOGEN NEG (NEG)
[2017-03-27 15:01] LABS: MANUAL MICROSCOPIC REQUIRED? NO; REVIEW REQ? NO
--- NOTE | 2017-03-27 16:04 | EMERGENCY ROOM VISIT NOTE ---
History First contact with patient: 12:52 Chief Complaint: FALL Stated Complaint: LEG PAIN History of Present Illness The patient is a 86 year old white female who presents to the Emergency Room with complaints of left arm pain after falling at home today. She was using her walker and was reaching for an object, when the walker caught on another piece of furniture and caused her to fall. She fell on top of a walker. She denies any loss of consciousness. She does not believe there was any head trauma. She did suffer multiple skin abrasions. She had immediate onset of pain in her left humerus. There was a visible deformity. Right-hand dominant. She arrives by [facility] ambulance. She denies any lower extremity pain. She has a known history of left shoulder hemiarthroplasty in 2000 and left hip ORIF in 2011. These were done by Dr. Alvarez. She denies any numbness or tingling. No other complaints. She is very hard of hearing. Family accompany her today. Review of Systems REVIEW OF SYSTEM: HEENT: No dizziness, visual problems, or tinnitus. There is no difficulty swallowing and no oral lesions are present. LYMPH: No adenopathy. PULMONARY: No cough, shortness of breath, sputum production or hemoptysis. CARDIOVASCULAR: No chest pain, shortness of breath or peripheral edema. GASTROINTESTINAL: No diarrhea, constipation, nausea, vomiting, or abdominal pain. GENITOURINARY: Frequent UTIs. Currently has a catheter in place. NEUROLOGIC: No muscle tenderness, epilepsy or history of neurological problems. MUSCULOSKELETAL: No history of joint tenderness/swelling. Positive history of arthritis and arthralgias. SKIN: No rashes or lesions. PSYCHIATRIC: No history of depression Endocrine: No history of thyroid disorders, or abnormal hair growth. Positive history of diabetes. Past Medical/Surgical History Medical Problems: (1) Afib (2) CHF (congestive heart failure) (3) Diabetes mellitus, type 2 (4) History of CVA (cerebrovascular accident) (5) HTN (hypertension) (6) Sacral decubitus ulcer, stage IV (7) Sepsis secondary to UTI (8) Squamous cell skin cancer Family History Cancer Diabetes mellitus FHx: heart disease Gallbladder disease Hypertension Kidney disease Social History Smoking Status: Unknown if Ever Smoked Smokeless Tobacco Use: No Alcohol Use: none Drug Use: none Marital Status: single Housing Status: lives with family Occupation Status: retired Current/Historical Medications Scheduled Allopurinol (Zyloprim), 300 MG PO DAILY Aspirin Enteric Coated (Ecotrin Or Generic), 81 MG PO DAILY Cholecalciferol (Vitamin D 1000 Unit), 2,000 INTER.UNIT PO DAILY Diltiazem Hcl Ext Rel (Tiazac), 120 MG PO DAILY Furosemide (Lasix), 20 MG PO QAM Lactobacillus (Ultimate Probiotic Formul), 1 CAP PO DAILY Sulfa/Trimethoprim (Bactrim Ds 800MG/160MG), 1 TAB PO DAILY Scheduled PRN Acetaminophen (Tylenol), 500 MG PO Q4 PRN for Pain or Fever Allergies Coded Allergies: Codeine (Verified Adverse Reaction, Mild, VOMITING, 12/31/16) Physical Exam Vital Signs Date Time Temp Pulse Resp B/P Pulse Ox O2 Delivery O2 Flow Rate FiO2 03/27/17 14:30 72 16 119/52 98 03/27/17 13:15 36.5 80 14 138/70 99 Room Air Physical Exam Gen.: Frail, cachectic, elderly white female, in no acute distress. Laying on a bed. Alert and oriented. Skin:Warm and dry with fair turgor. Skin is thin. Multiple skin tears, including under her chin, posterior left shoulder, right elbow, right forearm, right knee, and right shoulder. sacral decubitus ulcer is present. No rashes. Visible ecchymosis and edema present at the left bicep. No Erythema. Significant peripheral edema in both feet. She states this is baseline. No break in the skin on the left upper arm. The patient is not diaphoretic. HEENT: Normocephalic. Eyes PERRLA, EOMI. No conjunctiva or scleral injection. Nares patent bilaterally without turbinate enlargement. No significant drainage. No epistaxis. Oropharynx without erythema or exudate. Uvula midline, oral mucosa moist. No lesions present. Upper and lower denture plates are noted. Lymphatics are palpated without anterior or posterior chain enlargement or tenderness. Heart RRR, no MGR. lungs: Lungs are clear to auscultation. No crackles rhonchi or wheezing. Good air movement. The patient is able to take a deep breath. Abdomen: Abdomen was inspected, auscultated, and palpated. Bowel sounds present x 4. Soft, nontender to palpation. No hepato-splenomegaly. Musculoskeletal: Left leg is slightly shortened. She has no discomfort with log rolling of either leg nor hip flexion. No pain with palpation over her pelvis. Supple motion of her knees. Full motion of her right shoulder, elbow, and wrist. She has intact motor function to her left hand fingers and wrist. Elbow motion is limited secondary to pain at the humerus. Shoulder motion was not attempted. Palpable deformity at the midshaft of the humerus. Crepitus is palpable. Neurologic: Gross sensation is intact across the upper and lower extremities by soft touch. Medical Decision & Procedures ER Provider Diagnostic Interpretation: Chest x-ray, humeral radiographs, left hip radiograph, and AP pelvis radiograph were all obtained. No evidence of fracture in the left hip. Chest x-ray shows chronic changes and nothing acute. Left humerus has an oblique mid shaft fracture just distal to the humeral hemiarthroplasty prosthesis. Significant angulation of around 35. No dislocation of the shoulder. Films were read by radiology. EKG shows a paced rhythm with atrial fibrillation. No acute ST or T-wave abnormalities. This was reviewed with Dr. Choe. Laboratory Results 03/27/17 13:30 Red Blood Count 3.40, Mean Corpuscular Volume 95.9, Mean Corpuscular Hemoglobin 31.2, Mean Corpuscular Hemoglobin Concent 32.5, Mean Platelet Volume 12.0, Neutrophils (%) (Auto) 69.3, Lymphocytes (%) (Auto) 24.0, Monocytes (%) (Auto) 5.2, Eosinophils (%) (Auto) 0.9, Basophils (%) (Auto) 0.2, Neutrophils # (Auto) 9.76, Lymphocytes # (Auto) 3.38, Monocytes # (Auto) 0.73, Eosinophils # (Auto) 0.13, Basophils # (Auto) 0.03 03/27/17 13:30 03/27/17 14:20 Test 03/27/17 13:30 03/27/17 14:20 03/27/17 14:30 White Blood Count 14.08 K/uL (4.8-10.8) Red Blood Count 3.40 M/uL (4.2-5.4) Hemoglobin 10.6 g/dL (12.0-16.0) Hematocrit 32.6 % (37-47) Mean Corpuscular Volume 95.9 fL (80-100) Mean Corpuscular Hemoglobin 31.2 pg (25-34) Mean Corpuscular Hemoglobin Concent 32.5 g/dl (32-36) Platelet Count 161 K/uL (130-400) Mean Platelet Volume 12.0 fL (7.4-10.4) Neutrophils (%) (Auto) 69.3 % Lymphocytes (%) (Auto) 24.0 % Monocytes (%) (Auto) 5.2 % Eosinophils (%) (Auto) 0.9 % Basophils (%) (Auto) 0.2 % Neutrophils # (Auto) 9.76 K/uL (1.4-6.5) Lymphocytes # (Auto) 3.38 K/uL (1.2-3.4) Monocytes # (Auto) 0.73 K/uL (0.11-0.59) Eosinophils # (Auto) 0.13 K/uL (0-0.5) Basophils # (Auto) 0.03 K/uL (0-0.2) RDW Standard Deviation 62.9 fL (36.4-46.3) RDW Coefficient of Variation 18.0 % (11.5-14.5) Immature Granulocyte % (Auto) 0.4 % Immature Granulocyte # (Auto) 0.05 K/uL (0.00-0.02) Anion Gap 10.0 mmol/L (3-11) Est Creatinine Clear Calc Drug Dose 30.5 ml/min Estimated GFR () 58.7 Estimated GFR (Non- 50.6 BUN/Creatinine Ratio 42.0 (10-20) Calcium Level 8.8 mg/dl (8.5-10.1) Total Bilirubin 0.6 mg/dl (0.2-1) Alanine Aminotransferase (ALT/SGPT) 29 U/L (12-78) Alkaline Phosphatase 111 U/L (45-117) Total Protein 6.9 gm/dl (6.4-8.2) Albumin 3.0 gm/dl (3.4-5.0) Globulin 3.9 gm/dl (2.5-4.0) Albumin/Globulin Ratio 0.8 (0.9-2) Aspartate Amino Transf (AST/SGOT) 27 U/L (15-37) Urine Color YELLOW Urine Appearance CLEAR (CLEAR) Urine pH 5.5 (4.5-7.5) Urine Specific [facility] 1.011 (1.000-1.030) Urine Protein NEG (NEG) Urine Glucose (UA) NEG (NEG) Urine Ketones NEG (NEG) Urine Occult Blood TRACE (NEG) Urine Nitrite NEG (NEG) Urine Bilirubin NEG (NEG) Urine Urobilinogen NEG (NEG) Urine Leukocyte Esterase SMALL (NEG) Urine WBC (Auto) 5-10 /hpf (0-5) Urine RBC (Auto) 10-30 /hpf (0-4) Urine Hyaline Casts (Auto) 1-5 /lpf (0-5) Urine Epithelial Cells (Auto) 5-10 /lpf (0-5) Urine Bacteria (Auto) NEG (NEG) CBC, chem panel, UA, and urine culture were obtained. They show mild anemia with an H&H of 10 and 32. Mild elevation in white count at 14. Minor abnormalities on her chem panel. Cardiac enzymes are negative. Glucose elevated at 171. UA suggests possible UTI. Cultures are pending. ED Course Patient and her family were educated regarding today's findings. Conservative care measures were discussed. EKG was obtained. Imaging studies were obtained. Lab work was obtained. IV was established. Patient did not require any IV or oral pain medication while in the ED. She stated she had no pain. Arm was thoroughly examined. There is nothing to indicate an open fracture. Posterior long-arm splint and sugar tong splint of the upper arm were placed under my direct supervision. Neurovascular status was checked before and after splint placement. I did apply traction to the arm while splint was applied, and the arm was felt and visualized to have much better alignment. I did speak with Dr. Becky Elliott from orthopedics. He recommended medicine admission with medical clearance for likely operative intervention. He will be consulted. I did speak with the [facility] medicine team. They will admit the patient. Care plan was discussed in detail with her family. She remained stable while in the ED. Her family is quite certain that she had no significant head injury. There was no loss of consciousness. This was a witnessed fall. She denies any chest pain, shortness of breath, nausea, or vomiting. She denies any neck pain. Option of CT scan imaging of the head was discussed at length with the patient. They're fairly certain that she did not strike her head. She does not take any blood thinners other than aspirin. Regardless, CT scan imaging of the head will be ordered as a precaution. Patient was seen in conjunction with Dr. Choe, who also evaluated the patient and concurred with today's diagnosis and treatment plan. Medical Decision Possibility of intracranial injury, cervical spine injury, syncopal episode, cardiac event, arrhythmia, abnormal renal function, hyperglycemia, hypoglycemia , and additional long bone fracture were all considered. Impression Primary Impression: Fall Additional Impression: Closed left humeral fracture Departure Information Referrals Gene Guidry M.D. (PCP) Patient Instructions [facility] Problem Qualifiers Primary Impression: Fall Encounter type: initial encounter Qualified Codes: W19.XXXA - Unspecified fall, initial encounter
[2017-03-27] MEDS ORDERED: ALUMINUM/MAGNESIUM/SIMETH (MAALOX MAX) 30 ML UDC PO PRN (16:30)
[2017-03-27] MEDS ORDERED: POLYETHYLENE (MIRALAX) 17 GM PACK PO PRN (16:30)
[2017-03-27] MEDS ORDERED: ACETAMINOPHEN 325 MG TAB PO PRN (16:30)
[2017-03-27] MEDS ORDERED: ONDANSETRON INJ 2 MG/ML 2 ML VIAL IV PRN (16:30)
[2017-03-27] MEDS ORDERED: NITROGLYCERIN 0.4 MG SL PER TAB CHARGE SL PRN (16:30)
[2017-03-27] MEDS ORDERED: NITROGLYCERIN OINT 2% 1GM PACKET EXT SCH (16:30)
[2017-03-27] MEDS ORDERED: ACETAMINOPHEN 500 MG TAB PO PRN (16:30)
[2017-03-27] MEDS ORDERED: ZOLPIDEM TARTRATE 5 MG TAB PO PRN ×2 (16:30)
[2017-03-27] MEDS ORDERED: MAGNESIUM HYDROXIDE SUSP 30 ML UDC PO PRN (16:30)
--- NOTE | 2017-03-27 16:35 | History and Physical ---
History & Physical Date & Time of Service: March 27, 2017 at 15:17 Chief Complaint: Leg Pain Primary Care Physician: Gene Guidry M.D. History of Present Illness Source: patient, family, clinic records, hospital records 86F with a PMHx of cellulitis, hip fracture, indwelling urinary catheter for incontinence, A. Fib (not on anticoagulation), diabetes (diet controlled), HTN, CVA presents s/p a fall at her home. The fall was not directly witnessed, the daughter had her back to her mother. The pt remembers the fall, she was reached for on object, the walker got caught on something and she tripped over her walker, landed on her left arm. Daughter and pt denies any LOC. Pt has skin lacerations on her jaw, right elbow, left arm, right knee, left gan and chin. According to family (2 sisters, son, home nurse present at bedside) pt is at her mental status baseline. Pt has had a left shoulder surgery in the past with Dr. Alvarez. Pt has a history of falls and near misses. Pt ambulates with the assistance of a walker. Sometime the daughter will follow the pt with a chair because the pt has decreased exercise tolerance and poor balance. I have taken care of this patient in previous admissions and the patient has very thin skin that is easily avulsed. ROS: Pt has an indwelling catheter since November due to skin emaciations in the genital region. According to family the skin lesions have much improved. Hard of hearing. No headaches, no dizziness, no blurry vision, no numbness or tingling in hands. Pt denies being in any pain after her arm was put in a sling. Pt has been having diarrhea for the past 7 days ever since she was started on Bactrim for her UTI. PSHX: left shoulder hemiarthroplasty in 2000 and left hip ORIF in 2011 (Dr. Alvarez) SHx: Lives with son. Accompanied by multiple family members. Family members are caring and attentive to pt. Pt is able to perform many activities of daily living, albeit with assistance. Past Medical/Surgical History Medical Problems: (1) Afib Status: Chronic (2) CHF (congestive heart failure) Status: Chronic (3) Diabetes mellitus, type 2 Status: Chronic (4) History of CVA (cerebrovascular accident) Status: Chronic (5) HTN (hypertension) Status: Chronic (6) Squamous cell skin cancer Status: Chronic Family History Cancer Diabetes mellitus FHx: heart disease Gallbladder disease Hypertension Kidney disease Social History Smoking Status: Unknown if Ever Smoked Drug Use: none Marital Status: single Housing status: lives with family Occupational Status: retired Immunizations History of Influenza Vaccine: No History of Tetanus Vaccine?: Yes History of Pneumococcal: No History of Hepatitis B Vaccine: No Multi-Drug Resistant Organisms History of MDRO: Yes Type of MDRO: MRSA Allergies Coded Allergies: Codeine (Verified Adverse Reaction, Mild, VOMITING, 12/31/16) Home Medications Scheduled Allopurinol (Zyloprim), 300 MG PO DAILY Aspirin Enteric Coated (Ecotrin Or Generic), 81 MG PO DAILY Cholecalciferol (Vitamin D 1000 Unit), 2,000 INTER.UNIT PO DAILY Diltiazem Hcl Ext Rel (Tiazac), 120 MG PO DAILY Furosemide (Lasix), 20 MG PO QAM Lactobacillus (Ultimate Probiotic Formul), 1 CAP PO DAILY Sulfa/Trimethoprim (Bactrim Ds 800MG/160MG), 1 TAB PO DAILY Scheduled PRN Acetaminophen (Tylenol), 500 MG PO Q4 PRN for Pain or Fever Review of Systems Constitutional: No chills, No fever Respiratory: No cough, No sputum Cardiovascular: No chest pain Abdomen: + diarrhea, No nausea Genitourinary - Female: No dysuria Neurologic: No balance problems, No memory loss, No numbness/tingling, No paralysis, No weakness Physical Exam Vital Signs Date Time Temp Pulse Resp B/P Pulse Ox O2 Delivery O2 Flow Rate FiO2 03/27/17 14:30 72 16 119/52 98 03/27/17 13:15 36.5 80 14 138/70 99 Room Air General Appearance: WD/WN, no apparent distress, + cachetic, + thin Head: + pertinent finding (aside from lesion beneath the chin, no evidence of trauma) Neck: supple, no adenopathy Respiratory/Chest: chest non-tender, lungs clear, normal breath sounds, no respiratory distress, no accessory muscle use Cardiovascular: regular rate, rhythm, no JVD, no murmur, normal peripheral pulses Abdomen/GI: normal bowel sounds, non tender, soft, no organomegaly, no pulsatile mass, normal rectal exam Genitourinary - Female: + pertinent finding (Pt has an indwelling najera and is wearing a diaper. ) Back: normal inspection Extremities/Musculoskelatal: normal inspection, + pertinent finding (edematous lower extremities bilaterally, chronic venous stasis changes. Pt has good handgrip in left hand. Radial pulse 2+, Ulnar pulse 2+. Hands are same temperature bilaterally, and cold, fingers are thin and cachetic looking. 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 Skin is thin.) Diagnostics Laboratory Results Results Past 24 Hours Test 03/27/17 13:30 03/27/17 14:20 03/27/17 14:30 Range/Units White Blood Count 14.08 4.8-10.8 K/uL Red Blood Count 3.40 4.2-5.4 M/uL Hemoglobin 10.6 12.0-16.0 g/dL Hematocrit 32.6 37-47 % Mean Corpuscular Volume 95.9 80-100 fL Mean Corpuscular Hemoglobin 31.2 25-34 pg Mean Corpuscular Hemoglobin Concent 32.5 32-36 g/dl Platelet Count 161 130-400 K/uL Mean Platelet Volume 12.0 7.4-10.4 fL Neutrophils (%) (Auto) 69.3 % Lymphocytes (%) (Auto) 24.0 % Monocytes (%) (Auto) 5.2 % Eosinophils (%) (Auto) 0.9 % Basophils (%) (Auto) 0.2 % Neutrophils # (Auto) 9.76 1.4-6.5 K/uL Lymphocytes # (Auto) 3.38 1.2-3.4 K/uL Monocytes # (Auto) 0.73 0.11-0.59 K/uL Eosinophils # (Auto) 0.13 0-0.5 K/uL Basophils # (Auto) 0.03 0-0.2 K/uL RDW Standard Deviation 62.9 36.4-46.3 fL RDW Coefficient of Variation 18.0 11.5-14.5 % Immature Granulocyte % (Auto) 0.4 % Immature Granulocyte # (Auto) 0.05 0.00-0.02 K/uL Sodium Level 144 136-145 mmol/L Potassium Level 3.5 3.5-5.1 mmol/L Chloride Level 114 98-107 mmol/L Carbon Dioxide Level 20 21-32 mmol/L Anion Gap 10.0 3-11 mmol/L Blood Urea Nitrogen 42 7-18 mg/dl Creatinine 1.00 0.60-1.20 mg/dl Est Creatinine Clear Calc Drug Dose 30.5 ml/min Estimated GFR () 58.7 Estimated GFR (Non- 50.6 BUN/Creatinine Ratio 42.0 10-20 Random Glucose 171 70-99 mg/dl Calcium Level 8.8 8.5-10.1 mg/dl Total Bilirubin 0.6 0.2-1 mg/dl Aspartate Amino Transf (AST/SGOT) 27 15-37 U/L Alanine Aminotransferase (ALT/SGPT) 29 12-78 U/L Alkaline Phosphatase 111 45-117 U/L Total Protein 6.9 6.4-8.2 gm/dl Albumin 3.0 3.4-5.0 gm/dl Globulin 3.9 2.5-4.0 gm/dl Albumin/Globulin Ratio 0.8 0.9-2 Urine Color YELLOW Urine Appearance CLEAR CLEAR Urine pH 5.5 4.5-7.5 Urine Specific [place] 1.011 1.000-1.030 Urine Protein NEG NEG Urine Glucose (UA) NEG NEG Urine Ketones NEG NEG Urine Occult Blood TRACE NEG Urine Nitrite NEG NEG Urine Bilirubin NEG NEG Urine Urobilinogen NEG NEG Urine Leukocyte Esterase SMALL NEG Urine WBC (Auto) 5-10 0-5 /hpf Urine RBC (Auto) 10-30 0-4 /hpf Urine Hyaline Casts (Auto) 1-5 0-5 /lpf Urine Epithelial Cells (Auto) 5-10 0-5 /lpf Urine Bacteria (Auto) NEG NEG Microbiology Results 03/27/17 Urine Culture, Received Pending Diagnostic Radiology LEFT HUMERUS MIN 2 VIEWS ROUTINE CLINICAL HISTORY: fall trauma. Pain. COMPARISON: None. DISCUSSION: Angled fracture midshaft humerus. Prior left shoulder arthroplasty. There is no evidence for soft tissue swelling. IMPRESSION: Angled fracture midshaft humerus. LEFT HIP UNILATERAL 1 VIEW CLINICAL HISTORY: fall trauma COMPARISON: None. DISCUSSION: Degenerative change of all major osseous structures. Intramedullary jai in position. There is no evidence for soft tissue swelling. IMPRESSION: No acute process. CHEST ONE VIEW PORTABLE CLINICAL HISTORY: fall trauma COMPARISON STUDY: No previous studies for comparison. FINDINGS: The bones soft tissues and hemidiaphragms are normal. The cardiomediastinal silhouette is normal. The lungs are clear. The pulmonary vasculature is normal. IMPRESSION: Negative chest. Chronic change. PELVIS 1 OR 2 VIEW ROUTINE CLINICAL HISTORY: fall trauma COMPARISON: None. DISCUSSION: Generalized degenerative change. Left hip pinning. No acute bony abnormality. Osteoporosis. There is no evidence for soft tissue swelling. IMPRESSION: Degenerative and postoperative change. No acute process. EKG Atrial fibrillation with a competing junctional pacemaker Nonspecific ST and T wave abnormality Abnormal ECG When compared with ECG of 31-DEC-2016 18:43, Nonspecific T wave abnormality, worse in Inferior leads QT has lengthened Impression Assessment and Plan 86F with a PMHx of cellulitis, hip fracture, indwelling urinary catheter for incontinence, A. Fib (not on anticoagulation), diabetes (diet controlled), HTN, CVA presents s/p a fall at her home. Daughter (in same room) and pt deny LOC. X-ray shows left humerus fracture which was reset. Pt received an injection for pain in the ambulance. Pt denies any pain and hasn't received any pain meds in the ER. Has a document Codeine allergy. Left Midshaft Humerus Fracture - Left arm is in sling, pt denies c/o of pain. - ortho surg consult (Dr. Malik) - Tylenol PRN for pain. - NPO at midnight. Mechanical Fall - Will appreciate OT and PT recs. Diarrhea - May be ABx (Bactrim induced) or C. Diff. Will place on contact precautions until C. Diff returns. Will hold Bactrim. c/w Probiotic. Elevated WBC (15,000) 2/2 UTI vs Skin vs Colitis - Skin: skin (chronic lesions on left buttock and lateral left gan): Dressings have been applied, will continue to monitor. - UTI: Indwelling catheter, being treated for UTI with Bactrim x 7 days. will send Urine culture and follow up. Hold Bactrim for diarrhea, restart once urine culture comes back. - Colitis vs Diarrhea: Will test for C. Diff. Continue with probiotic. Hold Bactrim. No empiric treatment at present. - Continue to monitor.. A. Fib - Family understand the risks of holding anticoagulation. - c/w Diltiazem 120mg PO daily. h/o CVA - Family reports right eyelid droop x 1 week. - H/o CVA. Continue Aspirin 81mg daily. - Follow up CT Head. H/o Gout - c/w home med Allopurinol 300mg daily Vit D. Def. - c/w 2000 IU Vit D. HTN - c/w Lasix 20mg QAM. Diet: DM2 diet, NPO at midnight. Dispo: Med Surg, Low Flow air loss mattress DNR, same as previous admission, confirmed with daughter (11/09 POA). Resident Physician Supervision Note: I interviewed and examined the patient. Discussed with Dr. Driscoll and agree with findings and plan as documented in the note. Any exceptions or clarifications are listed here: None Documented By: Joey Alaniz fell - broke arm. surprisingly little pain. otherwise as above. ros otherwise negative except for as above vitals noted nad breathing unlabored skin tear on chin, arm reduced by ER PA-C. no pallor or icterus. pleasant frail elderly woman. a/p humerous fx - now reduced, pain control (having minimal pain right now anyway), ortho input on ?repair vs immobilize presumed osteoporosis - continue vitamin D, check level. as outpt should review +- of bisphosphonate or other treatments otherwise as above Additional Copies To Gene Guidry M.D. Resident Involvement: Resident Care Provided Care Provided: Adult Hospital Medicine
[2017-03-27] MEDS ORDERED: NITROGLYCERIN 2% OINTMENT 30GM TUBE EXT SCH (18:30)
[2017-03-27] MEDS ORDERED: IV FLUIDS COMPLETED PRN (18:45)
--- NOTE | 2017-03-27 20:25 | DIAGNOSTIC IMAGING REPORT ---
HEAD CT NONCONTRAST CT DOSE: 1151.75 mGy.cm HISTORY: Mental status change fall, right eyelid droop, h/o CVA, has Afib. TECHNIQUE: Multiaxial CT images of the head were performed without the use of intravenous contrast. Comparison: 12/10/2016 Findings: The paranasal sinuses and mastoid air cells are clear. Small hemorrhagic focus medial aspect left thalamus. This measures 8 x 7 mm. No evidence of midline shift. Components of chronic small vessel change. Additional multiple foci of punctate subarachnoid hemorrhage over the proximal convexities. Impression: Multifocal regions of subarachnoid hemorrhage over the superior cerebral convexities with an additional small hemorrhagic focus posterior medial left thalamus. Considerable chronic small vessel change. No midline shift. Electronically signed by: Jordan Grey M.D. 03/27/2017 8:24 PM Dictated Date/Time: 03/27/2017 8:18 PM
[2017-03-27] MEDS ORDERED: ENOXAPARIN 30 MG/0.3 ML SYR SC SCH (21:00)
[2017-03-27] MEDS ORDERED: PROTAMINE SULFATE IV STA (21:28)
[2017-03-27] MEDS ORDERED: DEXTROSE 5% IV STA (21:28)
[2017-03-27 22:10] VITALS: BP 112/58; PULSE 79; TEMP 36.5; O2SAT 98
[2017-03-27 23:54] VITALS: BP 114/59; PULSE 74; TEMP 37; O2SAT 97
[2017-03-28 03:58] VITALS: BP 104/57; PULSE 78; TEMP 37.1; O2SAT 98
[2017-03-28 07:35] VITALS: BP 117/58; PULSE 77; O2SAT 98
[2017-03-28] MEDS: ALLOPURINOL 300 MG TAB PO SCH (08:05)
[2017-03-28] MEDS: FUROSEMIDE 20 MG TAB PO SCH (08:05)
[2017-03-28] MEDS: LACTOBACILLUS ACIDOPHILUS (FLORANEX) TAB PO SCH (08:05)
[2017-03-28] MEDS: CHOLECALCIFEROL 1000 INTER.UNIT TAB PO SCH (08:05)
[2017-03-28] MEDS: DILTIAZEM HCL 120 MG EXT REL CAP PO SCH (08:05)
[2017-03-28] MEDS ORDERED: ASPIRIN 81 MG ECTAB PO SCH (09:00)
[2017-03-28] MEDS ORDERED: SULFAMETHOXAZOLE/TRIMETHOPRIM DS 800/160MG TAB PO SCH (09:00)
--- NOTE | 2017-03-28 09:18 | DIAGNOSTIC IMAGING REPORT ---
HEAD CT NONCONTRAST CT DOSE: 614.27 mGy.cm HISTORY: Follow-up intracranial hemorrhage. TECHNIQUE: Multiaxial CT images of the head were performed without the use of intravenous contrast. Automated exposure control was utilized for this study. Comparison: None. Findings: The paranasal sinuses and mastoid air cells are clear. The calvarium and skull base are intact. Mild right parietal scalp swelling is again noted. Old lacunar infarct seen within the left cerebellar hemisphere and posterior limb of the left internal capsule. Old left periventricular infarct. Trace subarachnoid hemorrhage within the right central sulcus and the right sylvian fissure has slightly improved. Trace left intraventricular hemorrhage is unchanged. Trace left frontal subarachnoid hemorrhage has improved. Impression: Trace intracranial hemorrhage is stable to slightly improved. Electronically signed by: Yung Reina M.D. 03/28/2017 9:16 AM Dictated Date/Time: 03/28/2017 9:13 AM
--- NOTE | 2017-03-28 10:44 | ORTHOPEDIC CONSULTATION ---
DATE OF CONSULTATION: 03/28/2017 CHIEF COMPLAINT: Left humerus fracture. HISTORY OF PRESENT ILLNESS: The patient is an 86-year-old female with multiple underlying medical problems, who sustained a fall at home. This was an unwitnessed fall. The walker apparently got caught on something and she reached out, tripped over something, and landed on her left arm. She had acute onset of pain and deformity to her arm. There was no head injury. She was brought to the Emergency Room. X-rays show humeral diaphyseal fracture below a hemiarthroplasty. She has been admitted by the medicine service and we are consulted for her left humerus fracture. Denies any other injuries. No other real complaints. She has been awake, alert and oriented. Apparently, there is some concern with a CT scan with some bleeds. PAST MEDICAL HISTORY: Significant for: 1. Cellulitis. 2. Left hip fracture, treated myself in 2011. 3. Indwelling urinary catheter for incontinence. 4. Chronic AFib, not on anticoagulation. 5. Diabetes. 6. Hypertension. 7. CVA. 8. Previous left shoulder hemiarthroplasty done by myself. 9. Congestive heart failure. 10. Squamous cell skin cancer. The remainder of the past medical history is as per the admission H\T\P. OBJECTIVE: VITAL SIGNS: Temperature is 37.1. Vital signs stable. GENERAL: Physical examination reveals a thin, cachectic, and elderly female. She is in the PCU. She is sitting up in her bed with family beside her. She is awake, alert and appropriate and recognized me. EXTREMITIES: Examination of left arm reveals the coaptation splint to be in place. A very thin arm. It looks to be well aligned clinically. She can dorsiflex and palmar flex her wrist and fingers appropriately. Some mild hand swelling. She can flex or extend her fingers appropriately. She is neurologically intact. Denies any pain. X-RAYS: X-rays of the left humerus reveal an oblique midshaft humerus fracture below a hemiarthroplasty stem. She got proximal migration of her humeral head in her glenoid. She has got diffuse osteopenia. X-rays of the left hip and femur reveal an IM nail in place. She has a healed fracture. No signs of new acute pathology. Slight question of an inferior pubic ramus fracture on the left. ASSESSMENT: An 86-year-old female with multiple underlying medical problems status post a left shoulder hemiarthroplasty with a left midshaft humerus fracture below the arthroplasty. She has got diffuse osteopenia. This is an oblique fracture. It looks to be clinically well aligned. This is something most likely will heal with conservative care. The chance of this healing is about 90%. The patient is relatively pain free and there is no indication for surgical intervention at this point. PLAN: She is already well placed in a coaptation splint. We will leave this on for 2 weeks. We are going to get her a sling to wear. She has to just leave this on. The more she can be sitting up in more of a dependent position and let gravity help align this the better. She should have the head of bed elevated as much as possible as long as possible. I need to see her back in 2 weeks. Any orthopedic questions can be directed to me at [phone].
[2017-03-28 11:59] VITALS: BP 107/48; PULSE 64; TEMP 36.4; O2SAT 99
[2017-03-28 15:32] VITALS: BP 111/54; PULSE 70; TEMP 36.9; O2SAT 98
--- NOTE | 2017-03-28 19:19 | Progress Note ---
Subjective Date of Service: March 28, 2017. Subjective Pt evaluation today including: conversation w/ patient, conversation w/ family , physical exam, chart review, lab review, review of inpatient medication list Problem List Medical Problems: (1) Acute renal failure Status: Acute (2) Cellulitis of both lower extremities Status: Acute (3) Closed left humeral fracture Status: Acute (4) Confusion Status: Acute (5) Dehydration Status: Acute (6) Fall Status: Acute (7) Hypoglycemia Status: Acute (8) Hypokalemia Status: Acute (9) Hypomagnesemia Status: Acute (10) Weakness Status: Acute Review of Systems Constitutional: No chills, No fatigue, No fever, No problem reported, No see HPI, No sweats, No weakness, No weight loss Eyes: No diplopia, No discharge, No eye pain, No problem reported, No redness, No see HPI, No worsening of vision ENT: No dental problems, No hearing loss, No nasal symptoms, No problem reported, No see HPI, No sore throat, No tinnitus, No trouble swallowing, No unusual epistaxis Respiratory: No cough, No dyspnea at rest, No dyspnea on exertion, No hemoptysis, No problem reported, No see HPI, No shortness of breath, No sputum, No wheezing Cardiac: No PND, No chest pain, No claudication, No edema, No orthopnea, No palpitations, No problem reported, No see HPI Abdomen: No GI bleeding, No constipation, No diarrhea, No nausea, No pain, No problem reported, No see HPI, No vomiting Musculoskeletal: No calf pain, No joint pain, No muscle pain, No problem reported, No see HPI, No swelling Female : No abnormal vaginal bleeding, No dysuria, No hematuria, No incontinence, No problem reported, No see HPI, No urinary frequency, No vaginal discharge Neurologic: No balance problems, No memory loss, No numbness/tingling, No paralysis, No problem reported, No see HPI, No vertigo, No weakness Psychiatric: No anhedonism, No anxiety, No depression symptoms, No insomnia, No problem reported, No see HPI, No substance abuse Heme: No abnormal bleeding/bruising, No clotting problems, No night sweats, No problem reported, No see HPI, No swollen lymph nodes Endo: No excessive thirst, No excessive urination, No fatigue, No problem reported, No see HPI Skin: No bleeding, No color change, No itch, No new/changing skin lesions, No problem reported, No rash, No see HPI Medications Current Inpatient Medications Medications (Trade) Dose Ordered Sig/Kaylee Route Start Time Stop Time Status Last Admin Dose Admin Acetaminophen (Tylenol Tab) 650 mg Q4H PRN PO 03/27/17 16:30 04/26/17 16:29 Al Hydrox/Mg Hydrox/Simethicone (Maalox Max Susp) 15 ml Q4H PRN PO 03/27/17 16:30 04/26/17 16:29 Magnesium Hydroxide (Milk Of Magnesia Susp) 30 ml Q12H PRN PO 03/27/17 16:30 04/26/17 16:29 Zolpidem Tartrate (Ambien Tab) 5 mg HSZ PRN PO 03/27/17 16:30 04/26/17 16:29 Ondansetron HCl (Zofran Inj) 4 mg Q6H PRN IV 03/27/17 16:30 04/26/17 16:29 Nitroglycerin (Nitrostat Tab) 0.4 mg UD PRN SL 03/27/17 16:30 04/26/17 16:29 Polyethylene (Miralax Powder Packet) 17 gm DAILY PRN PO 03/27/17 16:30 04/26/17 16:29 Acetaminophen (Tylenol Tab) 500 mg Q4 PRN PO 03/27/17 16:30 04/26/17 16:29 Allopurinol (Zyloprim Tab) 300 mg DAILY PO 03/28/17 09:00 04/27/17 08:59 03/28/17 08:05 300 MG Cholecalciferol (Vitamin D Tab) 2,000 inter.unit DAILY PO 03/28/17 09:00 04/27/17 08:59 03/28/17 08:05 2,000 INTER.UNIT Diltiazem HCl (TIAzac CAP) 120 mg DAILY PO 03/28/17 09:00 04/27/17 08:59 03/28/17 08:05 120 MG Furosemide (Lasix Tab) 20 mg QAM PO 03/28/17 09:00 04/27/17 08:59 03/28/17 08:05 20 MG Lactobacillus Acidophilus (Floranex Tab) 4 tab DAILY PO 03/28/17 09:00 04/27/17 08:59 03/28/17 08:05 4 TAB Miscellaneous (Iv Fluids Completed) 1 ea PRN PRN N/A 03/27/17 18:45 03/27/18 18:44 Objective Vital Signs Date Time Temp Pulse Resp B/P Pulse Ox O2 Delivery O2 Flow Rate FiO2 03/28/17 16:00 Room Air 03/28/17 15:32 36.9 70 16 111/54 98 Room Air 03/28/17 12:00 Room Air 03/28/17 11:59 36.4 64 16 107/48 99 Room Air 03/28/17 08:00 Room Air 03/28/17 07:35 77 16 117/58 98 Room Air 03/28/17 04:00 Room Air 03/28/17 03:58 37.1 78 20 104/57 98 Room Air 03/27/17 23:59 Room Air 03/27/17 23:54 37.0 74 20 114/59 97 Room Air 03/27/17 22:10 36.5 79 12 112/58 98 Room Air 03/27/17 19:52 Room Air Physical Exam General Appearance: WD/WN, no apparent distress Eyes: normal inspection, EOMI ENT: normal ENT inspection, hearing grossly normal Neck: supple Respiratory/Chest: chest non-tender, lungs clear, normal breath sounds, no respiratory distress, no accessory muscle use Cardiovascular: regular rate, rhythm, no edema, no gallop, no JVD, no murmur Abdomen: normal bowel sounds, non tender, soft, no organomegaly Extremities: + pertinent finding (left arm in sling) 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 Fib (not on anticoagulation), diabetes (diet controlled), HTN, CVA presents s/p a fall at her home. appears to be a mechanical fall but she was found to have the following problem Multifocal intracranial Hemorrhage repeat CT head showed improvement, family would like to be conservative about management no surgical intervention but would like us to follow it up ordered a repeat CT in am Left Midshaft Humerus Fracture - ortho surg consult appreciated -conservative management / arm sling Mechanical Fall - Will appreciate OT and PT recs. Diarrhea - being treated for UTI with Bactrim x 7 days. - May be ABx (Bactrim induced) or C. Diff. awaiting C. Diff returns. Bactrim is on hold. c/w Probiotic. - UTI: Indwelling catheter related , present on admission started CTXN awaiting Cx A. Fib - not candidate for anticoagulation. - c/w Diltiazem 120mg PO daily. Diet: DM2 diet, Dispo: Med Surg, Low Flow air loss mattress DNR, case D/W the whole family at bed side changed status to inpatient admission
[2017-03-28 19:43] VITALS: BP 119/55; PULSE 71; TEMP 36.9; O2SAT 97
[2017-03-28] MEDS: CEFTRIAXONE SOD INJ 1 GM in DEXTROSE 5% ADD-VANTAGE 50ML 50 ML IV SCH (19:45)
[2017-03-28 23:57] VITALS: BP 109/62; PULSE 75; TEMP 37.3; O2SAT 98
[2017-03-29] VITALS (8 sets, daily range): BP systolic 114–167; BP diastolic 50–105; PULSE 67–96; TEMP 36.7–37; O2SAT 95–98
[2017-03-29 06:55] LABS: HEMATOCRIT 25.1 % (37-47); MEAN CORPUSCULAR HEMOGLOBIN 31.1 pg (25-34); MEAN CORPUSCULAR HGB CONC 33.1 g/dl (32-36); MEAN PLATELET VOLUME 11.3 fL (7.4-10.4); PLATELET COUNT 144 K/uL (130-400); RED BLOOD COUNT 2.67 M/uL (4.2-5.4); WHITE BLOOD COUNT 12.48 K/uL (4.8-10.8)
[2017-03-29 07:21] LABS: BASO % 0.2 %; BASO ABS # 0.03 K/uL (0-0.2); COMPLETE YES; EOS % 0.9 %; IG% 0.3 %; LYMPH % 43.2 %; LYMPH ABS # 5.39 K/uL (1.2-3.4); MONO % 8.4 %
[2017-03-29 07:29] LABS: BUN/CREATININE RATIO 41.3 (10-20); CALCIUM 8.3 mg/dl (8.5-10.1); CREATININE 0.84 mg/dl (0.60-1.20); MAGNESIUM 1.4 mg/dl (1.8-2.4); POTASSIUM 3.7 mmol/L (3.5-5.1)
[2017-03-29 07:33] LABS: ALB/GLOB RATIO 0.7 (0.9-2); PHOSPHORUS 2.7 mg/dl (2.5-4.9)
--- NOTE | 2017-03-29 07:52 | Family Medicine Progress Note ---
Progress Note Date of Service March 29, 2017. Subjective Pt evaluation today including: conversation w/ patient, conversation w/ family , chart review, lab review The patient was seen and examined at bedside. No acute overnight events. On Telemetry pt is in Afib in the 80-90s. Pt denies being in any pain. Pt is resting comfortably in bed. Plan of care was described to the patient and all questions were answered. Update: 2:00. Pt was examined with daughter in the room. There was a concern about left hand edema. C. Diff was negative and contact precautions were discontinued. * 3pm: Surgical PA reapplied distal aspect of left arm cast, left thumb edema had improved. Constitutional: No chills, No fever ENT: No hearing loss Abdomen: No nausea, No pain Female : No dysuria, No urinary frequency Objective Physical Exam General Appearance: WD/WN, no apparent distress, + cachetic Neck: supple, no adenopathy, thyroid normal Respiratory/Chest: chest non-tender, lungs clear, normal breath sounds, no respiratory distress, no accessory muscle use Cardiovascular: no edema, no gallop, no JVD, no murmur, + irregularly irregular Abdomen: normal bowel sounds, non tender, soft, no organomegaly, no pulsatile mass Extremities: + pertinent finding (Left arm in sling, significant left hand edema, with oozing when examined in the afternoon. FROM in left hand bilaterally, good radial pulses bilaterally. No changes in sensation in the hands bilaterally. Pt has dressings over her right elbows and knees as noted on her H&P admission. ) Neurologic/Psychiatric: no motor/sensory deficits, alert, normal mood/affect, oriented x 3 Skin: + pertinent finding (Pt has severe ecchymosis over posterior neck that wasn't present when I saw her on Wednesday during admission, accorinding to daughter ecchymosis showed up on wednesday evening. ) Assessment and Plan 86F with a PMHx of cellulitis, hip fracture, indwelling urinary catheter for incontinence, A. Fib (not on anticoagulation), diabetes (diet controlled), HTN, CVA presents s/p a mechanical fall at her home. Pt was found to have a midshaft left humerus fracture and an Intracranial bleed. Repeat CT of the head showed an improvement of the ICH. Pt does not want a repeat CT head this morning. Treatment of the left midshaft humerus fracture is conservative management with left arm to gravity. Left forearm dressing re-done. Multifocal intracranial Hemorrhage Repeat CT head showed improvement, family would like to be conservative about management Pt declined repeat head CT in the AM - daughter present and witnessed this decision. Left Hand Swelling - Likely 2/2 to impaired left hand drainage. - After speaking with Dr. Alvarez, Wilbert Trinh surgical PA will decompress distal cast and reapply cast padding wrapped in RANULFO wrap. # [phone] Left Midshaft Humerus Fracture -conservative management / arm sling preferably to gravity (Dr. Alvarez) Mechanical Fall - Will appreciate OT and PT recs. - PT: Pt. unsafe to return home due to extreme decline in functional mobility. Pt. would benefit from cont'd P.T. to address decr'd strength, endurance, balance, transfers and gait. UTI Indwelling catheter related , present on admission Urine Cx - Proteus Mirabilis, sensitive to Ceftriaxone. (Day #2) Diarrhea (Resolved) - According to nurse, stool today resembled Peanut Butter. - C. Diff neg, contact precautions dc'd. c/w Probiotic. A. Fib - not candidate for anticoagulation. - c/w Diltiazem 120mg PO daily. Gout - Allopurinol daily Vit D Def - 2000 IU daiily Diet: DM2 diet, Dispo: Med Surg, Low Flow air loss mattress DNR, Resident Involvement: Resident Care Provided Care Provided: Adult Hospital Medicine History Resident Physician Supervision Note: I was present with Dr. Driscoll during the history and exam. I discussed the case with the resident and agree with the findings and plan as documented in the note. Any exceptions or clarifications are listed here. Pt seen and examined at bedside. Denies any pain at time of examination. Mental status at baseline from previous discharge. Discussed with family patient's refusal of follow up CT scan re: subarachnoid hemorrhage which was stable/improving on previous scan and reviewed potential consequences of no further imaging. They express understanding and wish to stand by the position that they refuse the testing. General Appearance: WD/WN, no apparent distress Eye Exam: bilateral eye EOMI, bilateral eye PERRL Respiratory: chest non-tender, lungs clear, normal breath sounds, no respiratory distress Cardiovascular: normal peripheral pulses, no murmur, irregularly irregular Extremities: other (dressing in place re: L humerus fx to gravity but with considerable compression of wrist w/ subsequent edema and weeping of the left wrist, improving w/ dressing alteration) Neurologic/Psychiatric: alert, normal mood/affect, facial droop Assessment/Plan 86 y/o female w/ indwelling urinary catheter, atrial fibrillation (no AC), DMII , HTN, CVA s/p fall w/ L humerus fx, UTI Left midshaft humerus fx - orthopaedics consulted, input appreciated - coaptation splint in place to gravity, f/u OP in 2 wks Left hand swelling - likely 2/2 compression of venous drainage by coaptation dressing - modified by PA at primary request w/ improvement - monitor UTI - ceftriaxone IV Subarachnoid hemorrhage - defers further imaging at this time, but did improve on last image and without symptoms at present. Monitor neuro status closely Chronic diarrhea - C. diff negative - will start on abx for UTI as noted Leukocytosis - improving. likely traumatic v. UTI v. chronic wounds - UTI tx as noted, wound care HTN - stable, on furosemide at present DMII - diet controlled Gout - allopurinol DNR
--- NOTE | 2017-03-29 08:00 | PROGRESS NOTE ---
DATE: 03/29/2017 SUBJECTIVE: An 86-year-old white female admitted status post a fall with left humeral diaphyseal fracture around a hemiarthroplasty and closed cranial trauma. She is doing well. No new complaints today. Arms are fairly minimally painful. Splint is fitting okay. She says she does not want head scan today. OBJECTIVE: VITAL SIGNS: Temperature 37.0. Vital signs stable. PHYSICAL EXAMINATION: EXTREMITIES: Examination of left arm reveals a sugar tong splint to be in place. She can flex and extend her fingers appropriately. She is neurologically intact. LABORATORY DATA: Hemoglobin 8.3. Hematocrit 25.1. ASSESSMENT: An 86-year-old female status post a fall with a left humeral diaphyseal fracture and some closed cranial trauma. She is neurologically stable. Splint is in place. PLAN: From an orthopedic standpoint, we are going to keep her in this splint for the next 2 weeks. She should leave this hang as much as possible and no propping of pillows underneath the arm as that defeats the purpose of the gravity alignment. I would agree with the patient that without any change in neurological issues or pain, I am not sure the benefit of an additional CT scanning of her head. I had recommended against that unless neurological issue changes or exam changes. She is orthopedically stable and acceptable for discharge at any time. I need to see her back 2 weeks post-hospitalization. Any orthopedic questions can be directed to me at [phone]. [facility]
--- NOTE | 2017-03-29 09:29 | DIAGNOSTIC IMAGING REPORT ---
LEFT HUMERUS MIN 2 VIEWS ROUTINE CLINICAL HISTORY: Resetting fracture COMPARISON: Left humerus radiographs March 27, 2017. FINDINGS: Evaluation is suboptimal given single AP projection. However, alignment of the oblique mid shaft fracture of the left humerus has improved since exam of March 27, 2017. Fracture remains mildly displaced. A left shoulder arthroplasty is noted. IMPRESSION: 1. Improved alignment of the oblique mid shaft fracture of the left humerus, as described above. 2. Status post left shoulder arthroplasty. Electronically signed by: Rocky Bryant M.D. 03/29/2017 9:27 AM Dictated Date/Time: 03/29/2017 9:26 AM
[2017-03-29] MEDS: LACTOBACILLUS ACIDOPHILUS (FLORANEX) TAB PO SCH (10:09)
[2017-03-29] MEDS: FUROSEMIDE 20 MG TAB PO SCH (10:09)
[2017-03-29] MEDS: CHOLECALCIFEROL 1000 INTER.UNIT TAB PO SCH (10:09)
[2017-03-29] MEDS: ALLOPURINOL 300 MG TAB PO SCH (10:09)
[2017-03-29] MEDS: DILTIAZEM HCL 120 MG EXT REL CAP PO SCH (10:10)
--- NOTE | 2017-03-29 12:30 | Clinical Documentation Query ---
CLINICAL DOCUMENTATION QUERY 86 year old white female s/p fall with left humeral fx, intracerebral hemorrhage, and Jennings catheter associated UTI. Patient take PO Lasix at home and CHF is mentioned as part of patient past medical history. In your clinical opinion is this patient being managed for: ( ) Chronic diastolic/preserved EF heart failure ( ) Other explanation of clinical findings (Please Explain) ( ) Unable to determine (Please Define) ( ) Need to Discuss ( ) Not Agree The medical record reflects the following clinical findings, treatment, and risk factors. Clinical Indicators: CHF per medical record. On PO Lasix at home. Treatment: PO Lasix, daily weight, I/O's, Risk Factors: Age, Afib, HTN Please clarify and document your clinical opinion in the progress notes and discharge summary. Terms such as "probable", "suspected", "likely", "questionable", "possible", or "still to be ruled out" are acceptable. IF IN AGREEMENT, YOU MUST DOCUMENT ABOVE DIAGNOSTIC STATEMENT IN DAILY PROGRESS NOTES AND DISCHARGE SUMMARY. This document is not part of the patient's record. Thank You, Ashok Estrada, RN [phone]
--- NOTE | 2017-03-29 12:31 | Clinical Documentation Query ---
CLINICAL DOCUMENTATION QUERY 86 year old white female s/p fall with left humeral fx, intracerebral hemorrhage, and Jennings catheter associated UTI. Patient takes PO Lasix at home and CHF is mentioned as part of patient past medical history. In your clinical opinion is this patient being managed for: ( ) Chronic diastolic/preserved EF heart failure ( x ) Other explanation of clinical findings (trauma from mechanical fall, trauma include intracranial hemorrhage and left humeral fracture) ( ) Unable to determine (Please Define) ( ) Need to Discuss ( ) Not Agree The medical record reflects the following clinical findings, treatment, and risk factors. Clinical Indicators: CHF per medical record. On PO Lasix at home. Treatment: PO Lasix, daily weight, I/O's, Risk Factors: Age, Afib, HTN Please clarify and document your clinical opinion in the progress notes and discharge summary. Terms such as "probable", "suspected", "likely", "questionable", "possible", or "still to be ruled out" are acceptable. IF IN AGREEMENT, YOU MUST DOCUMENT ABOVE DIAGNOSTIC STATEMENT IN DAILY PROGRESS NOTES AND DISCHARGE SUMMARY. This document is not part of the patient's record. Thank You, Ashok Estrada, RN [phone]
--- NOTE | 2017-03-29 18:51 | ORTHOPEDIC PROGRESS NOTE ---
DATE: 03/29/2017 SUBJECTIVE CHIEF COMPLAINT: This is an 86-year-old female admitted status post fall with left humeral diaphyseal fracture around the hemiarthroplasty as well as closed cranial trauma. She is doing well. She developed a little bit of swelling in her left lower extremity, mostly in her hand. Mostly the swelling was distal to coartion splint. She is in no pain. She describes no numbness or tingling. OBJECTIVE: VITAL SIGNS: Vital signs are stable. EXTREMITIES: Examination of her left arm reveals the sugar-tong splint to be in good place. She can flex and extend her fingers appropriately. There is some significant swelling on the dorsal aspect of her left hand. This is distal to the splint itself. She is neurovascularly intact. LABORATORY DATA: Hemoglobin is 8.3 and hematocrit 25.1. ASSESSMENT: This is an 86-year-old female status post fall with a left humeral diaphyseal fracture as well as closed cranial trauma. She is neurologically stable. The splint is in place. Plan: At this time, I did make a bivalve cut to the RANULFO bandage on the dorsal aspect of her left forearm. I cut the splint back to approximate the mid forearm. This seemed to relieve a lot of the pressure distal to the splint. I then reapplied some Kerlix padding followed by an RANULFO wrap on top of that loosely fitted. She tolerated the procedure well. She felt some relieve in her hand. She is neurovascularly intact after the procedure. Dr. Alvarez will follow up with her tomorrow morning to see how she is doing. We have also talked with Dr. Ortega ____ who is the hospitalist on her case and he agreed with the procedure as well. GARTH
[2017-03-29] MEDS: CEFTRIAXONE SOD INJ 1 GM in DEXTROSE 5% ADD-VANTAGE 50ML 50 ML IV SCH (20:05)
--- NOTE | 2017-03-30 07:41 | Family Medicine Progress Note ---
Progress Note Date of Service March 30, 2017. Subjective Pt evaluation today including: conversation w/ patient, physical exam, chart review, lab review The patient was seen and examined at bedside. No acute overnight events. Pt denies pain in the arm or hand. States that her left hand isn't hurting her and feels that the swelling has gone down. Eating peanut butter snacks at bedside. No acute complaints. Plan of care was described to the patient and all questions were answered. Constitutional: No chills, No fever, No sweats, No weight loss Respiratory: No cough, No shortness of breath, No sputum, No wheezing Cardiovascular: No chest pain Abdomen: No constipation, No diarrhea, No nausea, No pain, No vomiting Objective Physical Exam General Appearance: WD/WN, no apparent distress, + thin Eyes: EOMI Respiratory/Chest: chest non-tender, lungs clear, normal breath sounds, no respiratory distress, no accessory muscle use Cardiovascular: regular rate, rhythm, no edema, no gallop, no JVD, no murmur Abdomen: normal bowel sounds, non tender, soft, no organomegaly Extremities: normal range of motion, non-tender, normal inspection, no calf tenderness, + pertinent finding (Pt has a cast on her left arm. Equal handgrip strength symmetrically, sensation intact in the left and right hands bilaterally and equal. Edema of the left hand has improved. No more weeping from the left hand. Crusted lesions over the left hand. ) Neurologic/Psychiatric: alert, normal mood/affect, oriented x 3 Assessment and Plan 86F with a PMHx of cellulitis, hip fracture, indwelling urinary catheter for incontinence, A. Fib (not on anticoagulation), diabetes (diet controlled), HTN, CVA presents s/p a mechanical fall at her home. Pt was found to have a midshaft left humerus fracture and an Intracranial bleed. Repeat CT of the head showed an improvement of the ICH. Pt does not want a repeat CT head imaging. Neurocognitavely intact and at baseline. Treatment of the left midshaft humerus fracture is conservative management with left arm to gravity. Left forearm dressing re-done on 03/30/2017. Multifocal intracranial Hemorrhage Repeat CT head showed improvement, family would like to be conservative about management Left Hand Swelling - Likely 2/2 to impaired left hand drainage. - Decompressed distal cast and reapplied with looser fitting case. Left Midshaft Humerus Fracture -conservative management / arm sling preferably to gravity (Dr. Alvarez) Mechanical Fall - Rehab placement. UTI Discharge on Cefuroxime 250mg BID x 8 days. (Culture sensitive) Diarrhea (Resolved) - C. Diff neg, c/w Probiotic. Chronic Diastolic/preserved EF heart failure - stable, continue to monitor. A. Fib - not candidate for anticoagulation. - c/w Diltiazem 120mg PO daily. Gout - Allopurinol daily Vit D Def - 2000 IU daiily Diet: DM2 diet, Dispo: Med Surg, Low Flow air loss mattress DNR, Resident Involvement: Resident Care Provided Care Provided: Adult [facility] Medicine History Resident Physician Supervision Note: I was present with Dr. Driscoll during the history and exam. I discussed the case with the resident and agree with the findings and plan as documented in the note. Any exceptions or clarifications are listed here. Pt seen and examined at bedside. No acute events overnight. Patient mental status at baseline, oriented to self. No complaints of pain at this time. Reports no fever, CP/SOB, nausea, paresthesias. General Appearance: no apparent distress, cachetic Respiratory: chest non-tender, lungs clear, normal breath sounds, no respiratory distress Cardiovascular: normal peripheral pulses, regular rate, rhythm, no murmur Extremities: swelling (of the left hand considerably improved following dressing changes), other (coaptation dressing in place to gravity) Assessment/Plan 86 y/o female w/ indwelling urinary catheter, atrial fibrillation (no AC), DMII , HTN, CVA s/p fall w/ L humerus fx, UTI Left midshaft humerus fx - orthopaedics consulted, input appreciated - coaptation splint in place to gravity, f/u OP in 2 wks Left hand swelling - likely 2/2 compression of venous drainage by coaptation dressing - improved, residual changes likely 2/2 inflammation/swelling from fx UTI - ceftriaxone IV, transition to PO Subarachnoid hemorrhage - clinically stable at this time, would monitor for changes Chronic diarrhea - C. diff negative - treating for abx as noted Leukocytosis - improving. likely traumatic v. UTI v. chronic wounds - UTI tx as noted, wound care HTN - stable, on furosemide at present DMII - diet controlled Gout - allopurinol DNR
[2017-03-30 07:51] VITALS: BP 120/67; PULSE 79; TEMP 36.8; O2SAT 96
[2017-03-30 08:05] LABS: HEMATOCRIT 24.5 % (37-47); MEAN CELL VOLUME 96.5 fL (80-100); MEAN CORPUSCULAR HEMOGLOBIN 31.9 pg (25-34); MEAN CORPUSCULAR HGB CONC 33.1 g/dl (32-36); MEAN PLATELET VOLUME 11.9 fL (7.4-10.4); PLATELET COUNT 137 K/uL (130-400); RED BLOOD COUNT 2.54 M/uL (4.2-5.4); WHITE BLOOD COUNT 10.22 K/uL (4.8-10.8)
[2017-03-30 08:46] LABS: CREATININE 0.71 mg/dl (0.60-1.20)
[2017-03-30] MEDS: LACTOBACILLUS ACIDOPHILUS (FLORANEX) TAB PO SCH (09:52)
[2017-03-30] MEDS: ALLOPURINOL 300 MG TAB PO SCH (09:52)
[2017-03-30] MEDS: CHOLECALCIFEROL 1000 INTER.UNIT TAB PO SCH (09:52)
[2017-03-30] MEDS: FUROSEMIDE 20 MG TAB PO SCH (09:52)
[2017-03-30] MEDS: DILTIAZEM HCL 120 MG EXT REL CAP PO SCH (09:53)
[2017-03-30 11:05] VITALS: O2SAT 96
--- NOTE | 2017-03-30 15:26 | PROGRESS NOTE ---
DATE: 03/30/2017 DATE: 03/30/2017. SUBJECTIVE: Sridevi is an 86-year-old female with a left humeral diaphyseal fracture, really is not complaining of any pain in her left arm at this time. No other complaints. OBJECTIVE: She is alert, oriented in no distress. Examination of the left upper extremity the splint is fitting appropriately. She has some edema of her dorsum of her hand. She is moving her thumb and fingers appropriately with flexion and extension. ASSESSMENT: Left humeral diaphyseal fracture. PLAN: Will continue nonoperative management. She really is not complaining of any pain in the left upper extremity. We will pad up the dorsal aspect of the splint around her hand some as her hand is fairly edematous. We did again pad this with an ABD dorsally and rewrapped it with some Kerlix and Kendall wrap. She should continue use of the sling. Will plan to see her back in 2 weeks for x-rays of the humerus. Orthopedically, she is stable for discharge. She was seen and examined by Dr. Alvarez today as well. GARTH
[2017-03-30 15:39] VITALS: BP 114/64; PULSE 65; TEMP 36.8; O2SAT 95
[2017-03-30] MEDS ORDERED: CEFU1TAB33 PO (15:46)
--- NOTE | 2017-03-30 15:53 | Discharge Instructions ---
Discharge Instructions Date of Service March 30, 2017. Admission Reason for Admission: Intracranial Hemorrhage Discharge Discharge Diagnosis / Problem: Humerus Fracture, Intracranial Hemorrhage, Fall Discharge Goals Goal(s): Decrease discomfort, Improve function, Increase independence, Improve disease control, Diagnostic testing Activity Recommendations Activity Limitations: as noted below . Instructions / Follow-Up Instructions / Follow-Up UTI You have been discharged on a 7 day course of an antibiotic called Cefuroxime 250mg every 12 hours for the next 7 days. Please take this medication as prescribed. Humerus Fracture Dr. Alvarez has the following suggestions to improve healing in the left midshaft humerus fracture: - Sitting up while letting the left arm hang to gravity is the best position to promote bone healing. - We recommend elevating the head of the bed as much as possible for as long as possible. - Follow up with Dr. Alvarez's office in two weeks. Intracranial Bleed If you notice any changes in mental status such as confusion, disorientation, intense headache or lethargy please return to the ER for evaluation. We recommend follow up with your primary care doctor within 1-2 weeks. Current Hospital Diet Patient's current hospital diet: Diabetes Type 2 Diet, Low Sodium Diet (2gm Na) Discharge Diet Recommended Diet: Regular Diet Pending Studies Studies pending at discharge: no Laboratory Results Hemoglobin A1c Test 01/01/17 05:45 Range/Units Estimated Average Glucose 91 mg/dl Hemoglobin A1c 4.8 4.5-5.6 % Medical Emergencies . Who to Call and When: Medical Emergencies: If at any time you feel your situation is an emergency, please call 911 immediately. . Non-Emergent Contact Non-Emergency issues call your: Primary Care Provider, Surgeon . . "Provider Documentation" section prepared by Jordan Driscoll. . VTE Core Measure Inpt VTE Proph given/why not?: Contraindicated Resident Involvement: Resident Care Provided Care Provided: Adult Hospital Medicine
--- NOTE | 2017-03-30 17:07 | Discharge Summary ---
Discharge Summary Date of Service March 30, 2017. Discharge Summary Admission Date: March 27, 2017 at 19:10 Discharge Date: March 30, 2017 Discharge Disposition: Acute care facility Principal Diagnosis: Midshaft Humerus Fracture and Intracranial Hemorrhage. Immunizations: Have You Had Influenza Vaccine: No History of Tetanus Vaccine?: Yes History of Pneumococcal: No History of Hepatitis B Vaccine: No Medication Reconciliation New Medications: Cefuroxime Axetil (Cefuroxime Axetil) 250 Mg Tab 1 TAB PO Q12 for 7 Days, #14 TAB Continued Medications: Acetaminophen (Tylenol) 500 Mg Tab 500 MG PO Q4 PRN for Pain or Fever, TAB Allopurinol (Zyloprim) 300 Mg Tab 300 MG PO DAILY, TAB Aspirin Enteric Coated (Ecotrin Or Generic) 81 Mg Tab 81 MG PO DAILY, TAB Cholecalciferol (Vitamin D 1000 Unit) 1,000 Unit Cap 2000 INTER.UNIT PO DAILY Diltiazem Hcl Ext Rel (Tiazac) 120 Mg Capcr 120 MG PO DAILY, CAP Furosemide (Lasix) 20 Mg Tab 20 MG PO QAM, TAB Lactobacillus (Ultimate Probiotic Formul) 13.3 Mg Cap 1 CAP PO DAILY Discontinued Medications: Sulfa/Trimethoprim (Bactrim Ds 800MG/160MG) Tab 1 TAB PO DAILY, #6 TAB Discharge Exam Subjective The patient was seen and examined at bedside. No acute overnight events. Pt denies pain in the arm or hand. States that her left hand isn't hurting her and feels that the swelling has gone down. Eating peanut butter snacks at bedside. No acute complaints. Plan of care was described to the patient and all questions were answered. Constitutional: No chills, No fever, No sweats, No weight loss Respiratory: No cough, No shortness of breath, No sputum, No wheezing Cardiovascular: No chest pain Abdomen: No constipation, No diarrhea, No nausea, No pain, No vomiting Physical Exam General Appearance: WD/WN, no apparent distress, + thin Eyes: EOMI Respiratory/Chest: chest non-tender, lungs clear, normal breath sounds, no respiratory distress, no accessory muscle use Cardiovascular: regular rate, rhythm, no edema, no gallop, no JVD, no murmur Abdomen: normal bowel sounds, non tender, soft, no organomegaly Extremities: normal range of motion, non-tender, normal inspection, no calf tenderness, + pertinent finding (Pt has a cast on her left arm. Equal handgrip strength symmetrically, sensation intact in the left and right hands bilaterally and equal. Edema of the left hand has improved. No more weeping from the left hand. Crusted lesions over the left hand. ) Neurologic/Psychiatric: alert, normal mood/affect, oriented x 3 Hospital Course 86F with a PMHx of cellulitis, hip fracture, indwelling urinary catheter for incontinence, A. Fib (not on anticoagulation), diabetes (diet controlled), HTN, CVA presents s/p a mechanical fall at her home. Pt was found to have a midshaft left humerus fracture and an Intracranial bleed. Repeat CT of the head showed an improvement of the ICH. Pt does not want a repeat CT head imaging. Neurocognitive intact and at baseline. Treatment of the left midshaft humerus fracture is conservative management with left arm to gravity. Left forearm dressing re-done on 03/30/2017. Multifocal intracranial Hemorrhage Repeat CT head showed improvement, family would like to be conservative about management Left Hand Swelling - Likely 2/2 to impaired left hand drainage. - Decompressed distal cast and reapplied with looser fitting case. Left Midshaft Humerus Fracture -conservative management / arm sling preferably to gravity (Dr. Alvarez) Mechanical Fall- Rehab placement at [facility] UTI - Discharge on Cefuroxime 250mg BID x 8 days. (Culture sensitive) Diarrhea (Resolved)- C. Diff neg, c/w Probiotic. Total Time Spent: Greater than 30 minutes This includes examination of the patient, discharge planning, medication reconciliation, and communication with other providers. Discharge Instructions Please refer to the electronic Patient Visit Report (Discharge Instructions) for additional information. Additional Copies To Donis Weeks; Gene Guidry M.D. Resident Involvement: Resident Care Provided Care Provided: Adult Hospital Medicine
[2017-03-30] MEDS: CEFTRIAXONE SOD INJ 1 GM in DEXTROSE 5% ADD-VANTAGE 50ML 50 ML IV SCH (20:59)
[2017-03-30 23:43] VITALS: BP 104/46; PULSE 52; TEMP 36.5; O2SAT 98
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
[2017-03-31 07:33] VITALS: BP 119/73; PULSE 79; TEMP 36.7; O2SAT 97
[2017-03-31] MEDS: FUROSEMIDE 20 MG TAB PO SCH (08:57)
[2017-03-31] MEDS: DILTIAZEM HCL 120 MG EXT REL CAP PO SCH (08:57)
[2017-03-31] MEDS: CHOLECALCIFEROL 1000 INTER.UNIT TAB PO SCH (08:58)
[2017-03-31] MEDS: LACTOBACILLUS ACIDOPHILUS (FLORANEX) TAB PO SCH (09:00)
[2017-03-31] MEDS: ALLOPURINOL 300 MG TAB PO SCH (09:00)
[2017-03-31 11:57] VITALS: BP 119/73; PULSE 79; TEMP 36.7; O2SAT 97
== END 2017-03-31 15:35 | DRG 85 ==
LOC: ENRESERVDT → CANRESERV → ENRESERVTM → EDBD 12:49 → C.EDB 12:51 → EDBEDREQSVC 16:49 → EDBEDREQ 17:12 → C.MSW 17:49 → OBSVTOIN 19:10 → C.2T 22:20 → EDBEDREQSVC 03-29 18:58 → EDBEDREQ 03-29 18:58 → C.MSN 03-29 21:38
PROVIDERS: ADMIT Family Medicine; ATTEND Family Medicine
PROC: 0PSGXZZ Reposition Left Humeral Shaft, External Approach (ICD-10-PCS; principal; 2017-03-27)
DX: S06.6X0A Traumatic subarachnoid hemorrhage without loss of consciousness, initial encounter (principal); S42.302A Unspecified fracture of shaft of humerus, left arm, initial encounter for closed fracture; L89.154 Pressure ulcer of sacral region, stage 4; T83.511A Infection and inflammatory reaction due to indwelling urethral catheter, initial encounter; N17.9 Acute kidney failure, unspecified; N39.0 Urinary tract infection, site not specified; I50.9 Heart failure, unspecified; I48.91 Unspecified atrial fibrillation; E11.9 Type 2 diabetes mellitus without complications; Z95.0 Presence of cardiac pacemaker; Z86.73 Personal history of transient ischemic attack (TIA), and cerebral infarction without residual deficits; E55.9 Vitamin D deficiency, unspecified; M81.0 Age-related osteoporosis without current pathological fracture; R19.7 Diarrhea, unspecified; T47.6X5A Adverse effect of antidiarrheal drugs, initial encounter; M79.89 Other specified soft tissue disorders; W18.09XA Striking against other object with subsequent fall, initial encounter; Y92.009 Unspecified place in unspecified non-institutional (private) residence as the place of occurrence of the external cause; Y84.6 Urinary catheterization as the cause of abnormal reaction of the patient, or of later complication, without mention of misadventure at the time of the procedure; Y93.01 Activity, walking, marching and hiking; Z85.828 Personal history of other malignant neoplasm of skin